=== PATIENT | female | born 1995 | race African-American/Black ===

== ENCOUNTER 2021-09-18 09:26 | Outpatient (REF) | payer MEDICAID, SELFPAY ==
[2021-09-18 10:14] LABS: Hematocrit 35.5 % (37.0-47.0); Hemoglobin 11.5 g/dl (12.0-16.0); Mean Corpuscular HGB Conc 32.4 g/dl (31.0-35.0); Mean Corpuscular Hemoglobin 27.8 pg (27.0-33.0); Mean Corpuscular Volume 85.7 fL (80.0-98.0); Platelet Count 332 X10*3/uL (160-400); Red Blood Count 4.14 X10*6/uL (4.20-5.50); Red Cell Distribution Width 14.1 % (11.0-16.0); White Blood Count 8.9 X10*3/uL (4.8-10.8)
[2021-09-18 10:29] LABS: Estimated Average Glucose 108 mg/dL; Hemoglobin A1C 103.8645 umol/L; Hemoglobin A1c % 5.4 %
[2021-09-18 11:03] LABS: Alanine Aminotransferase 15 U/L (0-31); Albumin Level 4.4 g/dL (3.5-5.0); Alkaline Phosphatase 52 U/L (39-117); Anion Gap 10 (12-20); Aspartate Amino Transferase 16 U/L (5-31); Bilirubin Total 1.1 mg/dL (0.0-1.0); Blood Urea Nitrogen 13 mg/dL (9-16); Calcium 9.5 mg/dL (8.4-10.2); Carbon Dioxide 26 mmol/L (22-29); Chloride 107 mmol/L (96-108); Cholesterol 151 mg/dL; Estimated Glomerular Filt Rate > 60; Glucose Fasting 87 mg/dL (60-99); HDL Cholesterol 47 mg/dL; LDL Cholesterol Calculated 84 mg/dl; Potassium 3.9 mmol/L (3.3-5.1); Sodium 139 mmol/L (135-145); Total Protein 7.1 g/dL (6.5-8.0); Triglycerides 100 mg/dL
[2021-09-18 11:09] LABS: TSH reflex Free T4 1.08 uIU/mL (0.32-4.0)
== END 2021-09-18 09:27 | disposition home or self-care (01) ==
LOC: HO.LAB 09:26
PROVIDERS: PCP Physician Assistant; Visit Provider Physician Assistant
DX: Z13.220 Encounter for screening for lipoid disorders (principal); Z13.1 Encounter for screening for diabetes mellitus; E66.09 Other obesity due to excess calories; Z68.32 Body mass index [BMI] 32.0-32.9, adult
CPT/HCPCS: 36415; 80053; 80061; 83036; 84443; 85027

== ENCOUNTER 2021-11-20 12:42 | Outpatient (REF) | payer OTHER, SELFPAY ==
[2021-11-20 13:00] LABS: MANUAL DIFF FLAG NO
[2021-11-20 13:42] LABS: Basophils Percent Auto 0.3 % (0-2); Eosinophils Absolute Auto 0.1 X10*3/uL (0.0-0.4); Hematocrit 35.9 % (37.0-47.0); Hemoglobin 11.8 g/dl (12.0-16.0); Imm Gran Abs Auto 0.02 X10*3/uL (0.00-0.03); Imm Gran Pct Auto 0.3 % (0.0-0.4); Lymphocytes Absolute Auto 2.6 X10*3/uL (1.2-4.9); Lymphocytes Percent Auto 33.7 % (20-40); Mean Corpuscular HGB Conc 32.9 g/dl (31.0-35.0); Mean Corpuscular Hemoglobin 27.6 pg (27.0-33.0); Mean Corpuscular Volume 84.1 fL (80.0-98.0); Monocytes Absolute Auto 0.6 X10*3/uL (0.1-1.2); Monocytes Percent Auto 7.3 % (2-11); Neutrophils Absolute Auto 4.4 x10*3/uL (2.0-8.3); Neutrophils Percent Auto 57.4 % (45-73); Platelet Count 440 X10*3/uL (160-400); Red Blood Count 4.27 X10*6/uL (4.20-5.50); Red Cell Distribution Width 13.2 % (11.0-16.0); White Blood Count 7.6 X10*3/uL (4.8-10.8)
[2021-11-20 14:10] LABS: Iron 66 mcg/dL (30-160); Percent Iron Saturation 21 % (15-50); Total Iron Binding Capacity 321 mcg/dL (228-428); Unsaturated Iron Binding 255 ug/dL
[2021-11-20 14:38] LABS: Folate 8.9 ng/mL (> or = 4.0); Vitamin B12 414 pg/mL (200-900)
[2021-11-20 14:52] LABS: Ferritin 45 ng/mL (10-122)
[2021-11-25 14:16] LABS: Vitamin D 25-OH, D2 <4 ng/mL; Vitamin D 25-OH, D3 10 ng/mL; Vitamin D 25-OH, Total 10 ng/mL (30-100)
== END 2021-11-20 12:43 | disposition home or self-care (01) ==
LOC: HO.LAB 12:42
PROVIDERS: PCP Physician Assistant; Visit Provider Nurse Practitioner Acute Care
DX: D64.9 Anemia, unspecified (principal)
CPT/HCPCS: 36415; 82306; 82607; 82728; 82746; 83540; 85025

== ENCOUNTER 2021-12-03 09:01 | Outpatient (REF) | payer OTHER, SELFPAY ==
--- NOTE | ~2021-12-03 | CT_ITS ---
EXAMINATION: CT HEAD WITHOUT CONTRAST CLINICAL INFORMATION: Headache COMPARISON: Previous head CT June 2012 TECHNIQUE: Contiguous axial imaging was performed from the skull base to vertex without intravenous administration of contrast. This CT examination was performed using dose optimization techniques as appropriate, variously including the following: *Automated exposure control *Adjustment of mA and/or kV according to patient size (this includes techniques or standardized protocols for targeted exams where dose is matched to indication/reason for exam; i.e. extremities or head) *Use of iterative reconstruction technique DLP: 721 mGy-cm FINDINGS: There is no evidence of acute intracranial hemorrhage or territorial infarction. No abnormal mass effect or midline shift is seen. Sheldon to white matter differentiation is well preserved. No extra-axial fluid collections are identified. The ventricles are normal in size. There is no abnormal attenuation within the brain parenchyma. The osseous structures and soft tissues are normal. The mastoid air cells and visualized portions of the paranasal sinuses are well aerated. CT/CT head/brain wo con IMPRESSION: Unremarkable exam.
== END 2021-12-03 09:02 | disposition home or self-care (01) ==
LOC: HO.CT 09:01
PROVIDERS: Visit Provider Nurse Practitioner Acute Care
DX: R51.9 Headache, unspecified (principal); U09.9 Post COVID-19 condition, unspecified; G89.29 Other chronic pain
CPT/HCPCS: 70450

== ENCOUNTER 2021-12-31 12:54 | Outpatient (REF) | payer OTHER, SELFPAY ==
--- NOTE | 2021-12-31 12:58 | EEG_ITS ---
The waking background activity consists of 8-9 hertz posterior alpha frequency, intermixed anteriorly with low-voltage fast frequencies. Drowsiness is characterized with diffuse theta slowing. During sleep symmetrical frontal central sleep spindles, vertex sharp transients, and K complexes are noted with bifrontal delta in stage III and IV sleep. Arousals are unremarkable. The patient reports no symptoms. No focal, lateralizing, or paroxysmal discharges seen. IMPRESSION: This 24-hour ambulatory EEG is within normal limits. MD GUME Miranda/DAHIANA / [id number]
== END 2021-12-31 12:55 | disposition home or self-care (01) ==
LOC: HO.NEURO 12:54
PROVIDERS: Visit Provider Physician Assistant
DX: R55 Syncope and collapse (principal)
CPT/HCPCS: 95708; 95957

== ENCOUNTER 2022-01-07 16:49 | Outpatient (REF) | payer OTHER, SELFPAY ==
--- NOTE | ~2022-01-07 | XR_ITS ---
EXAMINATION: XR CHEST CLINICAL INFORMATION: Chest pain COMPARISON: Chest 01/29/2016 TECHNIQUE: 2 views of the chest were obtained. FINDINGS: No significant abnormality is noted involving the heart, lungs, mediastinum, bony thorax or soft tissues. XR/XR chest 2V IMPRESSION: Unremarkable chest examination. No change from 01/29/2016
== END 2022-01-07 16:50 | disposition home or self-care (01) ==
LOC: HO.XRAY 16:49
PROVIDERS: PCP Physician Assistant; Visit Provider Nurse Practitioner Family
DX: R07.9 Chest pain, unspecified (principal); S82.91XA Unspecified fracture of right lower leg, initial encounter for closed fracture
CPT/HCPCS: 71046

== ENCOUNTER 2022-09-24 10:30 | Outpatient (REF) | payer OTHER, SELFPAY ==
[2022-09-24 13:40] LABS: Influenza A PCR NEGATIVE (Negative); Influenza B PCR NEGATIVE (Negative); Resp Syncy Virus RNA Qual PCR NEGATIVE (Negative); SARS COV2 PCR INHOUSE NEGATIVE (Negative)
== END 2022-09-24 10:31 | disposition home or self-care (01) ==
LOC: HO.LAB 10:30
PROVIDERS: Visit Provider Nurse Practitioner Family
DX: Z20.822 Contact with and (suspected) exposure to COVID-19 (principal); J02.9 Acute pharyngitis, unspecified
CPT/HCPCS: 0241U; 87070

== ENCOUNTER 2023-04-02 15:45 | Outpatient (REF) | payer OTHER, SELFPAY | END 2023-04-02 15:46 | disposition home or self-care (01) | LOC: HO.LAB 15:45 | PROVIDERS: Visit Provider Nurse Practitioner Family | DX: R30.0 Dysuria (principal) | CPT/HCPCS: 87086 ==

== ENCOUNTER 2023-04-28 08:18 | Outpatient (REF) | payer OTHER, SELFPAY ==
--- NOTE | ~2023-04-28 | US_ITS ---
EXAMINATION: US ABDOMEN LIMITED CLINICAL INFORMATION: Right upper quadrant abdominal tenderness. COMPARISON: Ultrasound retroperitoneal limited (renal only) 12/31/2022. TECHNIQUE: Real-time imaging of the right upper quadrant abdominal viscera. FINDINGS: PANCREAS: Normal. LIVER: The liver is normal in size. The liver contour is normal. Increased hepatic echogenicity which can be seen in the setting of hepatic steatosis or underlying liver disease. No focal hepatic lesion. There is no intrahepatic biliary duct dilatation seen. GALLBLADDER: Surgically absent. COMMON BILE DUCT: Normal in caliber measuring 0.5 cm in diameter. RIGHT KIDNEY: Normal. No hydronephrosis. No renal calculi or focal parenchymal lesions. The kidney measures 10.3 cm in maximum dimension. FREE FLUID: None. US/US abdomen limited IMPRESSION: 1. Increased hepatic echogenicity which can be seen in the setting of hepatic steatosis or underlying liver disease. 2. Status post cholecystectomy. No intra or extrahepatic biliary duct dilatation.
== END 2023-04-28 08:19 | disposition home or self-care (01) ==
LOC: HO.US 08:18
PROVIDERS: Visit Provider Nurse Practitioner Family
DX: R10.811 Right upper quadrant abdominal tenderness (principal)
CPT/HCPCS: 76705

== ENCOUNTER 2023-06-26 15:56 | Outpatient (AMB) | payer OTHER, SELFPAY ==
[2023-06-26 16:09] VITALS: BP 117/75; PULSE 85; BMI 30.5
--- NOTE | 2023-06-26 16:09 | MHC.OFFVIS ---
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 Patient has been reporting postprandial abdominal bloating and nausea. Patient reports that she has occasional postprandial loose stools then still feeling like she does not empty her bowels completely. Patient denies melena, hematochezia, unintentional weight loss or ribbon like stools. Patient reports acid reflux with occasional dyspepsia, without dysphagia or odynophagia. Patient was started on omeprazole by PCP, however she reports that she has not taking it for a long time. Okay to do breath test for H pylori in the office today. 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 Cognitive needs: No Hearing needs: No Vision needs: No Review of Systems Const Denies weight gain and Denies weight loss ENT Reports no additional complaints, Denies dysphagia and Denies odynophagia Card Reports no additional complaints Resp Reports no additional complaints GI Reports abdominal pain (RUQ), Denies belching, Denies melena, Reports bloating, Denies change in bowel habits, Denies dysphagia, Denies excessive flatus, Denies dyspepsia, Reports heartburn, Denies diarrhea, Denies loose stools, Reports nausea, Denies odynophagia and Denies vomiting Reports no additional complaints Musc Reports no additional complaints Neuro Reports no additional complaints Psych Reports no additional complaints Endo Reports no additional complaints Physical Exam Vital Signs: Last Vital Signs Pulse 85 06/26/23 16:09 BP 117/75 06/26/23 16:09 BMI result Body Mass Index 30.5 Const General: healthy appearing, no acute distress and well developed Nutritional Appearance: obese Orientation/consciousness: patient oriented x3 HEENT Head: Yes normal to inspection, Yes normocephalic and Yes atraumatic Face and sinus: Yes normal facial exam Mouth: Normal oral and palatal mucosa present Throat: Yes posterior oropharynx normal, Yes tonsils normal and Yes uvula midline Eyes General: appearance normal, both eyes and all related structures Neck Neck: Yes normal visual inspection, Yes full ROM and Yes trachea midline Thyroid: Thyroid normal Resp Effort & Inspection: normal respiratory effort, able to speak in complete sentences, no tracheal deviation and symmetric chest movement Auscultation: clear to auscultation bilaterally Cardio Rate: regular rate Heart sounds: S1 normal heart sound present and S2 normal heart sound present GI Inspection: Yes normal to inspection, No distended and Yes obesity Palpation (GI): Soft to palpation, not firm, nontender and No hepatosplenomegaly present Auscultation: normal bowel sounds General: Yes no CVA tenderness Back/Spine/Pelvis Back: no CVA tenderness Skin General skin exam: elasticity normal, turgor normal and dry skin Neuro General: patient oriented x3 Psych Appearance: grossly normal Mental Status: mental status grossly normal Results Reviewed Results Reviewed: ABDOMINAL ULTRASOUND 04/28/2023 IMPRESSION: 1. Increased hepatic echogenicity which can be seen in the setting of hepatic steatosis or underlying liver disease. 2. Status post cholecystectomy. No intra or extrahepatic biliary duct dilatation. Assessment & Plan Assessment & Plan (1) GERD (gastroesophageal reflux disease): Code(s): K21.9 - Gastro-esophageal reflux disease without esophagitis Qualifiers: Esophagitis presence: esophagitis presence not specified Qualified Code(s): K21.9 - Gastro-esophageal reflux disease without esophagitis Plan: Patient with start taking omeprazole every morning half an hour before breakfast. Patient will continue avoiding dietary triggers and late night snacking. Will check for H pylori, transglutaminase to rule out celiac, lipase, liver profile. (2) RUQ abdominal tenderness: Code(s): R10.811 - Right upper quadrant abdominal tenderness Qualifiers: Presence of rebound: absent Qualified Code(s): R10.811 - Right upper quadrant abdominal tenderness Plan: Negative Segura sign. Will send patient for liver enzymes. Will hold off on getting another ultrasound. Ultrasound just done recently and showed no acute processes. (3) IBS (irritable bowel syndrome): Code(s): K58.9 - Irritable bowel syndrome without diarrhea Qualifiers: Irritable bowel syndrome type: without diarrhea Qualified Code(s): K58.9 - Irritable bowel syndrome without diarrhea Plan: Discussed with patient will FODMAP diet. List of food recommended as well as list of food to avoid given to patient. Patient will return in 3 months, sooner on as needed basis. Patient is agreeable to this plan and verbalizes understanding of instructions. She was given the opportunity to ask questions and all questions answered. Thank you for allowing me to participate in her care Orders: Orders Transglutaminase IgA 06/26/23 R10.9 - Unspecified abdominal pain Transglutaminase Ab IgG 06/26/23 R10.9 - Unspecified abdominal pain TSH reflex Free T4 06/26/23 K59.00 - Constipation, unspecified Lipase 06/26/23 R10.9 - Unspecified abdominal pain Liver Panel 06/26/23 R10.9 - Unspecified abdominal pain H Pylori Breath Test 06/26/23 Pancreatic Elastase-1 06/26/23 R10.9 - Unspecified abdominal pain Vitamin D 25-OH (D2 and D3) 06/26/23 E55.9 - Vitamin D deficiency, unspecified Vitamin B12 and Folate 06/26/23 R19.7 - Diarrhea, unspecified Medications: New methylcellulose (laxative) (Citrucel) take it with full glass of water 500 mg PO DAILY 30 tabs 2RF K59.00 - Constipation, unspecified sennosides (Natural Senna Laxative) 17.2 mg (2 x 8.6 mg) PO BEDTIME 60 tabs 3RF constipation K59.00 - Constipation, unspecified Refilled omeprazole 20 mg PO DAILY 60 caps 1RF K21.9 - Gastro-esophageal reflux disease without esophagitis Coding Level of Care Code New Pt Level 4 (58998) Diagnoses Gastroesophageal reflux disease, unspecified whether esophagitis present K21.9 Esophagitis presence: esophagitis presence not specified Right upper quadrant abdominal tenderness without rebound tenderness R10.811 Presence of rebound: absent Irritable bowel syndrome without diarrhea K58.9 Irritable bowel syndrome type: without diarrhea Time Spent (min) 45 Comment 30 minutes spent with patient and additional 15 minutes spent reviewing her records
== END 2023-06-26 16:16 ==
PROVIDERS: PCP Physician Assistant; Visit Provider Nurse Practitioner Family
DX: K21.9 Gastro-esophageal reflux disease without esophagitis (principal); R10.811 Right upper quadrant abdominal tenderness; K58.9 Irritable bowel syndrome, unspecified
CPT/HCPCS: 99204

== ENCOUNTER → 2023-06-26 15:56 | Outpatient (BNVA) | payer OTHER, SELFPAY | PROVIDERS: PCP Physician Assistant; Visit Provider Nurse Practitioner Family ==

== ENCOUNTER 2023-06-26 17:13 | Outpatient (REF) | payer OTHER, SELFPAY ==
[2023-06-30 15:29] LABS: H Pylori Breath Test Negative (Negative)
== END 2023-06-26 17:14 | disposition home or self-care (01) ==
LOC: HO.LNP 17:13
PROVIDERS: Visit Provider Nurse Practitioner Family
DX: Z11.0 Encounter for screening for intestinal infectious diseases (principal)
CPT/HCPCS: 83013

== ENCOUNTER 2023-12-28 14:53 | Outpatient (AMB) | payer OTHER, SELFPAY ==
--- NOTE | 2023-12-28 14:55 | A.OFFPC_ITS ---
Vital Signs 12/28/23 14:57 Height 5 ft 4 in Weight 169 lb 6 oz BMI 29.1 BP 130/80 Blood Pressure Location Lt brachial Position Sitting Pulse 81 Pulse Source Pulse Oximeter Temp 98.6 F Temp Source Oral Pulse Oximetry (%) 97 Oxygen Delivery Method Room Air Intake Visit Reasons: PE Intake Note: Patient is here today for a physical. Complaint of cough since 12/25/23 and fever since 12/26/23, OTC not helping, stomach pain and headache. Covid test not done. Wild Life Manager Required: No Top Polisher: Not Required per policy Accompanied by: Self / Same As Patient Allergies amoxicillin Allergy (Unknown, Verified 12/28/23 15:07) Rash amitriptyline Adverse Reaction (Intermediate, Verified 12/28/23 15:07) Fatigued trazodone Adverse Reaction (Intermediate, Verified 12/28/23 15:07) Anxiety Medication List - Last Reconciled 12/28/23 by Edilberto Hurd PA-C albuterol sulfate 90 mcg/actuation 2 puffs inhalation Q6H PRN 30 days budesonide-formoterol 80-4.5 mcg/actuation (Symbicort) 2 puffs inhalation BID 30 days Tobacco use date assessed: 12/28/23 Dental Screening Dental Screen Date: 12/28/23 Did you have a dental visit in the last 12 months?: No Did you have a dental problem in the last 6 months where you did not have access to dental care?: No Was dental information given to patient?: Patient has dentist HPI PE HPI Details Patient is a 28-year-old female here today for annual physical. Patient has a past medical history significant for asthma. . Has been suffering with an upper respiratory illness over the last 3 days which has been causing her cough and intermittent fevers. 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 She does feel like her asthma is exacerbated due to the upper resp illness. Has been taking [id number] cough cold medications that are not helpful. .. Generalized anxiety disorder: Still suffers from anxiety and is willing to speak with a mental health therapist. At this time she has not interested in any medication for her anxiety. 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. Vaccines: Up-to-date with COVID vaccine, flu vaccine, pneumonia and tetanus vaccines [facility] Medical History Right hand paresthesia Nephrolithiasis Surgical History History of cholecystectomy Social History (Updated 12/28/23 @ 15:11 by Edilberto Hurd PA-C) Housing: Apartment Alcohol intake: current Alcohol intake frequency: holidays/special occasions only Patient Tobacco Use Status: Never used Tobacco Tobacco use type: Cigarette e-Cigarette/Vaping Use: Never Used Second Hand Smoke Exposure: No Substance Use Type: Marijuana service: No Current occupational status: employed Current occupation: [employer] Cognitive needs: No Hearing needs: No Vision needs: No Questionnaire PHQ-9 Over the last 2 weeks, how often have you been bothered by any of the following problems? 1. Little interest or pleasure in doing things: not at all 2. Feeling down, depressed, or hopeless: not at all 3. Trouble falling or staying asleep, or sleeping too much: not at all 4. Feeling tired or having little energy: not at all 6. Feeling bad about yourself - or that you are a failure or have let yourself or your family down: not at all 7. Trouble concentrating on things, such as reading the newspaper or watching television: not at all 8. Moving or speaking so slowly that other people could have noticed. Or the opposite - being so fidgety or restless that you have been moving around a lot more than usual: not at all 9. Thoughts that you would be better off or of hurting yourself in some way: not at all Depression Screening Interpretation: Negative Depression Screening Done: Yes 45890 - PHQ-9 Billing: Yes Source: Developed by Drs. Heri Armstrong, Delores Matamoros, Mauricio Keller and colleagues, with an educational christopher from [employer]. Thrive Questionnaire Date Thrive assessed: 12/28/23 I am a: Patient What is your living situation today?: I have a steady place to live Within the past 12 months, did the food you bought not last and you didn't have the money to get more?: Never true Within the past 12 months, did you worry whether your food would run out before you got money to buy more?: Never true Do you have trouble paying for medicines?: No Do you have trouble getting transportation to medical appointments?: No Do you have trouble paying your heating and electricity bill?: No Do you have trouble taking care of your child, family member or friend?: No Do you have trouble with day-to-day activities such as bathing, preparing meals, shopping, managing finances, etc.?: No Are you currently unemployed and looking for a job?: No Are you interested in more education?: No Currently or been in a relationship where the following occur: no concerns reported THRIVE Score: 0 AUDIT C Alcohol Use Questionnaire (AUDIT-C) 1. How often do you have a drink containing alcohol?: Monthly or less 2. How many drinks containing alcohol do you have on a typical day when you are drinking?: 1 or 2 Total Score: 1 RAZ-7 AMB Questionnaire RAZ-7 Date RAZ - 7 assessed: 12/28/23 Feeling nervous, anxious, or on edge: 3 = Nearly every day Not being able to stop or control worryin = Not at all Worrying too much about different things: 0 = Not at all Trouble relaxin = More than half the days Being so restless that it is hard to sit still: 1 = Several days Becoming easily annoyed or irritable: 1 = Several days Feeling afraid as if something awful might happen: 0 = Not at all Total RAZ-7 score (0-4 normal; 5-9 mild; 10-14 moderate; 15-21 severe): 7 Source: Developed by Drs. Heri Armstrong, Delores Matamoros, Mauricio Keller and colleagues, with an educational christopher from [employer]. RAZ-7 Assessment Billing RAZ-7 Assessment Tool: RAZ-7 Assessment 84405 ACT Questionnaire In the past 4 weeks, how much of the time did your asthma keep you from getting as much done at work, school or at home?: None of the time During the past 4 weeks, how often have you had shortness of breath?: Not at all During the past 4 weeks, how often did your asthma symptoms wake you up at night or earlier than usual in the morning?: Not at all During the past 4 weeks, how often have you had to use your rescue inhaler or nebulizer medication?: Not at all How would you rate your asthma control during the past 4 weeks?: Completely controlled ACT Interpretation: Negative Score: 25 Review of Systems Const Reports body aches, Denies chills, Denies excessive sweating, Reports fatigue, Reports fever(s) and Denies headache(s) Eyes Denies blurry vision ENT Denies dysphagia, Denies vertigo, Denies dizziness, Denies headache(s), Denies hearing loss and Denies tinnitus Card Denies chest pain, Denies chest pain with activity, Denies syncope, Denies irregular heart rhythm and Denies dyspnea Resp Denies chest congestion, Reports cough, Denies hemoptysis, Denies dyspnea and Denies wheezing GI Denies abdominal pain, Denies melena, Denies hematochezia, Denies coffee ground emesis, Denies dysphagia, Denies diarrhea, Denies nausea and Denies vomiting Denies urinary frequency, Denies dysuria, Denies urinary hesitancy and Denies urinary urgency Musc Denies arthralgias, Denies limited range of motion, Denies muscle cramps and Denies muscle weakness Skin/Breast Denies rash and Denies skin ulcer Neuro Denies Abnormal speech present, Denies confusion, Denies vertigo, Denies dizziness, Denies syncope, Denies headache(s), Denies memory loss and Denies seizure-like activity Psych Denies anxiety, Denies confusion, Denies depression, Denies memory loss, Denies panic attacks and Denies paranoia Endo Denies excessive sweating, Reports fatigue, Denies flushing, Denies polydipsia and Denies polyuria Aller/Immun Denies wheezing Physical exam (Primary Care) Vital Signs: Last Vital Signs Temp 98.6 F 12/28/23 14:57 Pulse 81 12/28/23 14:57 BP 130/80 12/28/23 14:57 Pulse Ox 97 12/28/23 14:57 Oxygen Delivery Method Room Air 12/28/23 14:57 BMI result Body Mass Index 29.1 Tobacco/Smoking Status: Tobacco use Status Tobacco use date assessed 12/28/23 12/28/23 15:05 Patient Tobacco Use Status Never used Tobacco 12/28/23 15:11 Tobacco use type Cigarette 12/28/23 15:11 e-Cigarette/Vaping Use Never Used 12/28/23 15:11 Depression Screening Interpretation: Negative Thrive Assessment: Date of Thrive Assessment Date Thrive assessed 12/28/23 12/28/23 15:05 Currently or been in a relationship where the following occur: no concerns reported Const General: cooperative, comfortable, no acute distress, alert and awake; No confusion Orientation/consciousness: oriented to person, oriented to place, patient oriented x3 and No confusion HENMT Head: Yes normocephalic Ears: external ears normal and TM's normal bilaterally Face and sinus: No sinus tenderness Mouth: Normal oral and palatal mucosa present and tongue normal Teeth and gingiva: dentition normal and gingiva normal Throat: Yes posterior oropharynx normal, Yes tonsils normal and Yes uvula midline Eyes Conjunctivae: conjunctivae normal Sclerae: sclerae normal Pupils: Equal, round and reactive pupils present EOM: EOMs intact bilaterally Direct Ophthalmoscopy: No no photophobia Neck Neck: Yes no lymphadenopathy, No tender and Yes no JVD Thyroid: Thyroid normal Carotids: no bruits Chest Chest palpation & inspection: no tenderness Resp Other: OCCASIONAL COUGH DURING EXAM Effort & Inspection: normal respiratory effort, no audible wheezes, Actively coughing, not labored and no stridor Auscultation: no crackles, no rales, rhonchi and no wheezes Cardio Jugular venous distension: no JVD Rate: regular rate, not bradycardic and not tachycardic Rhythm: regular rhythm Bruits: no carotid bruits Peripheral pulses: Peripheral pulses 2+ throughout GI Inspection: Yes normal to inspection, No abdominal wall ecchymosis and No visible herniation Palpation (GI): Soft to palpation, nontender, no guarding, not rigid and No hepatosplenomegaly present Auscultation: normoactive bowel sounds General: Yes no CVA tenderness Back/Spine/Pelvis Back: no CVA tenderness and No back tenderness Cervical Spine: cervical ROM normal Thoracic/Lumbar Spine: thoracic and lumbar spine normal to inspection, straight leg raise negative bilaterally, No thoraco-lumbar ROM limited and No lumbar spinal tenderness Skin Lesions: no lesions Rashes: no rashes Wounds: no wounds Neuro General: oriented to person, oriented to place, patient oriented x3, CN's II-XI intact bilaterally and No confusion Cranial nerves: Yes Equal, round and reactive pupils present and Yes Normal accommodation reflex present Cognition (Neuro): normal cognition Speech: No Abnormal speech present Gait exam (Neuro): Normal gait present Motor exam (neuro): 5/5 motor strength present throughout Extrem Right upper extremity: full ROM; no cyanosis Left upper extremity: full ROM; no cyanosis Right lower extremity: no edema Left lower extremity: no edema Psych Appearance: grossly normal Mental Status: mental status grossly normal Affect: normal affect Attitude: cooperative Thought process: Normal thought process present Assessment and Plan Assessment & Plan (1) Annual physical exam: Code(s): Z00.00 - Encounter for general adult medical examination without abnormal findings (2) MDD (major depressive disorder), recurrent episode, moderate: Code(s): F33.1 - Major depressive disorder, recurrent, moderate Plan: Has resolved, PHQ-9 score 0. Not on a medication at this time. She is willing to see a mental therapist for her anxiety. (3) Asthma: Code(s): J45.909 - Unspecified asthma, uncomplicated Qualifiers: Asthma complication type: uncomplicated Asthma persistence: unspecified Asthma severity: moderate Qualified Code(s): J45.909 - Unspecified asthma, uncomplicated Plan: Currently patient's asthma is exacerbated due to upper respiratory illness. Otherwise her asthma is fairly well controlled without any exacerbations recently. (4) RAZ (generalized anxiety disorder): Comment: Moderate RAZ Code(s): F41.1 - Generalized anxiety disorder Plan: Patient's RAZ-7 score positive for anxiety which has been existing condition for her. She has not interested in mental health medications though she is now interested in being referred to mental health therapy. (5) Pyelonephritis: Code(s): N12 - Tubulo-interstitial nephritis, not specified as acute or chronic Plan: Reports being admitted to the hospital a few months ago for acute UTI evolved in to pyelonephritis. She needs a urology follow-up (6) URI (upper respiratory infection): Code(s): J06.9 - Acute upper respiratory infection, unspecified Qualifiers: URI type: unspecified viral URI Qualified Code(s): J06.9 - Acute upper respiratory infection, unspecified Plan: Patient has had a 48 hour history of acute and intermittent fever. Denies any also contacts. 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 Will test for flu RSV and COVID. (7) Screening for diabetes mellitus (DM): Code(s): Z13.1 - Encounter for screening for diabetes mellitus Orders: Orders Vitamin D 25-OH Total 12/28/23 E55.9 - Vitamin D deficiency, unspecified SARS-CoV2/FLU/RSV 12/28/23 J06.9 - Acute upper respiratory infection, unspecified Comprehensive [place]. Panel Fast 12/28/23 Z13.1 - Encounter for screening for diabetes mellitus Complete Blood Count no Diff 12/28/23 K21.9 - Gastro-esophageal reflux disease without esophagitis Referrals Counseling Referral F41.1 - Generalized anxiety disorder Urology Referral J06.9 - Acute upper respiratory infection, unspecified, N12 - Tubulo-interstitial nephritis, not specified as acute or chronic, N20.0 - Calculus of kidney Medications: New prednisone Take 3 tablets x2 days, 2 tablets x2 days, 1 tablet x2 days 10 mg PO DIRECTED 6 days 12 tabs 0RF J45.909 - Unspecified asthma, uncomplicated oseltamivir (Tamiflu) 75 mg PO BID 10 caps 0RF 5 days J10.1 - Influenza due to other identified influenza virus with other respiratory manifestations Refilled albuterol sulfate 90 mcg/actuation 2 puffs inhalation Q6H 30 days PRN 8.5 grams 6RF shortness of breath or wheezing J45.909 - Unspecified asthma, uncomplicated budesonide-formoterol 80-4.5 mcg/actuation (Symbicort) 2 puffs inhalation BID 30 days 10.2 grams 6RF J45.909 - Unspecified asthma, uncomplicated Coding Level of Care Code Est Pt Prev Care [id number]([id number]) Diagnoses Annual physical exam Z00.00 MDD (major depressive disorder), recurrent episode, moderate F33.1 Moderate asthma without complication, unspecified whether persistent J45.909 Asthma complication type: uncomplicated Asthma persistence: unspecified Asthma severity: moderate RAZ (generalized anxiety disorder) F41.1 Pyelonephritis N12 Viral upper respiratory tract infection J06.9 URI type: unspecified viral URI Screening for diabetes mellitus (DM) Z13.1 Additional Codes RAZ-7 Assessment Billing - RAZ-7 Assessment Tool: RAZ-7 Assessment [id number] ([id number])
[2023-12-28 14:57] VITALS: BP 130/80; PULSE 81; TEMP 37; O2SAT 97; BMI 29.1
== END 2023-12-28 16:03 | disposition home or self-care (01) ==
PROVIDERS: PCP Physician Assistant; Visit Provider Physician Assistant
DX: Z00.00 Encounter for general adult medical examination without abnormal findings (principal); F33.1 Major depressive disorder, recurrent, moderate; J45.909 Unspecified asthma, uncomplicated; F41.1 Generalized anxiety disorder; N12 Tubulo-interstitial nephritis, not specified as acute or chronic; J06.9 Acute upper respiratory infection, unspecified; Z13.1 Encounter for screening for diabetes mellitus
CPT/HCPCS: 99395

== ENCOUNTER 2023-12-28 15:38 | Outpatient (REF) | payer OTHER, SELFPAY ==
[2023-12-28 16:51] LABS: Influenza A PCR POSITIVE (Negative); Influenza B PCR NEGATIVE (Negative); Resp Syncy Virus RNA Qual PCR NEGATIVE (Negative); SARS COV2 PCR INHOUSE NEGATIVE (Negative)
== END 2023-12-28 15:39 | disposition home or self-care (01) ==
LOC: HO.LNP 15:38
PROVIDERS: Visit Provider Physician Assistant
DX: J06.9 Acute upper respiratory infection, unspecified (principal)
CPT/HCPCS: 0241U

== ENCOUNTER 2024-02-06 16:16 | Inpatient (IN) | payer OTHER, SELFPAY ==
--- NOTE | ~2024-02-06 | CT_ITS ---
EXAMINATION: CT ABDOMEN AND PELVIS WITH CONTRAST CLINICAL INFORMATION: Abdominal pain COMPARISON: Previous abdominal ultrasound March 2023 TECHNIQUE: Multidetector volumetric images were obtained from the superior aspect of the liver through the pubic symphysis following administration 85 mL of Omnipaque 350 intravenous contrast. Sagittal and coronal reformatted images were obtained on the technologist's workstation. Oral contrast: Yes This CT examination was performed using dose optimization techniques as appropriate, variously including the following: *Automated exposure control *Adjustment of mA and/or kV according to patient size (this includes techniques or standardized protocols for targeted exams where dose is matched to indication/reason for exam; i.e. extremities or head) *Use of iterative reconstruction technique DLP: 512 mGy-cm FINDINGS: LUNG BASES: The visualized lung bases are unremarkable. LIVER, GALLBLADDER, AND BILIARY TREE: The liver is normal in size, shape, and attenuation. No focal hepatic lesion or biliary ductal dilatation is present. The gallbladder has been removed. PANCREAS: Unremarkable. SPLEEN: Unremarkable. ADRENAL GLANDS: Unremarkable. KIDNEYS AND URETERS: The kidneys are normal in size, shape, and attenuation. No hydronephrosis, hydroureter, or calculi seen. No perinephric stranding. BLADDER: Unremarkable. GASTROINTESTINAL TRACT: Wall thickening and edema of the colon suggestive of colitis. No evidence of obstruction. Normal small bowel. The appendix is unremarkable. No ascites. ABDOMINAL WALL: No significant hernia is appreciated. LYMPH NODES: Normal. VASCULAR: Unremarkable. PELVIC VISCERA: Unremarkable. OSSEOUS STRUCTURES: Unremarkable. CT/CT abdomen pelvis w IV con IMPRESSION: Colitis. Fleischner guidelines were followed.
[2024-02-06 16:27] VITALS: BP 141/68; BP 142/92; PULSE 52; PULSE 57; RESP 18; TEMP 36.6; O2SAT 100; O2SAT 99; BMI 27.5
[2024-02-06 16:42] LABS: MANUAL DIFF FLAG NO
[2024-02-06 16:44] LABS: Basophils Percent Auto 0.2 % (0-2); Eosinophils Percent Auto 0.1 % (0-4); Hematocrit 39.2 % (37.0-47.0); Hemoglobin 13.2 g/dl (12.0-16.0); Imm Gran Abs Auto 0.08 X10*3/uL (0.00-0.03); Imm Gran Pct Auto 0.4 % (0.0-0.4); Lymphocytes Absolute Auto 2.3 X10*3/uL (1.2-4.9); Mean Corpuscular HGB Conc 33.7 g/dl (31.0-35.0); Mean Corpuscular Volume 83.1 fL (80.0-98.0); Mean Platelet Volume 8.8 fL (9.4-12.3); Monocytes Absolute Auto 0.6 X10*3/uL (0.1-1.2); Monocytes Percent Auto 2.9 % (2-11); Neutrophils Absolute Auto 16.4 x10*3/uL (2.0-8.3); Neutrophils Percent Auto 84.4 % (45-73); Platelet Count 440 X10*3/uL (160-400); Red Blood Count 4.72 X10*6/uL (4.20-5.50); Red Cell Distribution Width 13.8 % (11.0-16.0); White Blood Count 19.5 X10*3/uL (4.8-10.8)
[2024-02-06] MEDS: ondansetron HCL 4 MG/2 ML VIAL IVPUSH (16:44)
[2024-02-06] MEDS: 0.9 % Sodium Chloride 1,000 ML 999 ML IV ×2 (16:44→20:01)
[2024-02-06 16:49] VITALS: BP 124/59; PULSE 46; RESP 16; TEMP 36.9
[2024-02-06 16:58] LABS: Alanine Aminotransferase 15 U/L (0-31); Alkaline Phosphatase 55 U/L (39-117); Anion Gap 19 (12-20); Aspartate Amino Transferase 18 U/L (5-31); Bilirubin Total 0.8 mg/dL (0.0-1.0); Blood Urea Nitrogen 14 mg/dL (9-16); Calcium 10.1 mg/dL (8.4-10.2); Carbon Dioxide 20 mmol/L (22-29); Chloride 110 mmol/L (96-108); Creatinine Clr Calc Pharmacy 113.1; Estimated Glomerular Filt Rate > 60; Ethanol 28 mg/dL; Glucose Random 116 mg/dL (60-115); Potassium 3.6 mmol/L (3.3-5.1); Sodium 145 mmol/L (135-145); Total Protein 8.4 g/dL (6.5-8.0)
[2024-02-06 17:09] VITALS: PULSE 82
[2024-02-06 17:13] LABS: Acetaminophen LAB < 3 mcg/mL (<30); Salicylate < 5.0 mg/dL (15-30)
[2024-02-06 17:36] LABS: Lipase 13 U/L (8-78)
[2024-02-06 17:56] LABS: HCG Quantitative < 2 mIU/mL
--- NOTE | 2024-02-06 18:08 | ED.GENADULT ---
HPI - General Adult General Chief complaint: ETOH/Substance Use Stated complaint: vomiting, diarrhea, poss alc poisoning, poss dehyd Time Seen by Provider: 02/06/24 18:07 Source: patient and RN notes reviewed Mode of arrival: ambulatory Limitations: no limitations History of Present Illness HPI narrative: This is a [id number]-female, with no known medical problems, who presents to the emergency department with complaints of nausea, vomiting since last night. Patient states that last night she drank a lot of hard alcohol. She is unable to approximate how much alcohol she had drank. She states that she has been vomiting the entire day. She also endorses that she smoked marijuana. Denies any other drug use. Denies any sick contacts. She has been unable to eat or drink secondary to the nausea and vomiting. No fevers, chills, chest pain, shortness of breath, urinary symptoms, diarrhea constipation. No other complaints or concerns at this time. MD complaint: Nausea, vomiting Onset (ago): hour(s) Radiation: non-radiation Quality: aching Pain Consistency: constant Relieving factors: none Exacerbating factors: none Associated symptoms: nausea/vomiting Treatments prior to arrival: none Related Data Previous Rx's ?Medication ?Instructions ?Recorded albuterol sulfate 90 mcg/actuation 2 puff inhalation Q6H PRN 12/28/23 aerosol inhaler shortness of breath or wheezing 30 days #8.5 grams budesonide-formoterol HFA 80 2 puff inhalation BID 30 days 12/28/23 mcg-4.5 mcg/actuation aerosol #10.2 grams inhaler (Symbicort) prednisone 10 mg tablet 10 mg PO DIRECTED 6 days #12 12/28/23 tabs oseltamivir 75 mg capsule (Tamiflu) 75 mg PO BID 5 days #10 caps 12/29/23 Allergies Allergy/AdvReac Type Severity Reaction Status Date / Time amoxicillin Allergy Unknown Rash Verified 02/06/24 16:29 amitriptyline AdvReac Intermediate Fatigued Verified 02/06/24 16:29 trazodone AdvReac Intermediate Anxiety Verified 02/06/24 16:29 Review of Systems Review of Systems: Yes all other systems are reviewed and are negative Constitutional: Constitutional: Reports as per [facility] Past Medical History Attestation statement: The following information was validated with the patient. Medical History Right hand paresthesia Nephrolithiasis Surgical History History of cholecystectomy Social History Social History Housing: Apartment Alcohol intake: current Alcohol intake frequency: holidays/special occasions only Alcohol type: hard liquor Patient Tobacco Use Status: Never used Tobacco Tobacco use type: Cigarette e-Cigarette/Vaping Use: Never Used Second Hand Smoke Exposure: No Use of substances other than those prescribed or required for medical reasons: Yes Substance Use Type: Marijuana Advance Directives: No Advance Directives Information Provided: No service: No Current occupational status: employed Current occupation: [employer] Cognitive needs: No Hearing needs: No Vision needs: No Physical Exam ED Vital Signs: Vital Signs - 24 hr 02/06/24 16:27 02/06/24 16:49 02/06/24 19:44 Temperature 98 F 98.5 F 97.9 F Pulse Rate 57 46 L 62 Respiratory Rate 18 16 16 Blood Pressure 141/68 H 124/59 L 131/71 Pulse Oximetry 100 97 Oxygen Delivery Method Room Air Room Air Room Air 02/06/24 22:21 02/07/24 00:00 02/07/24 02:04 Temperature 98.6 F 98.7 F 98.4 F Pulse Rate 72 66 61 Respiratory Rate 16 16 16 Blood Pressure 107/69 105/52 L 140/78 H Pulse Oximetry 97 97 97 Oxygen Delivery Method Room Air Room Air Room Air BMI result Body Mass Index 27.5 Const General: cooperative, comfortable and no acute distress Orientation/consciousness: patient oriented x3 Limitations: no limitations [facility] Head: Yes normal to inspection, Yes normocephalic and Yes atraumatic Ears: hearing grossly normal bilaterally General nose exam: Normal external nose present Face and sinus: Yes normal facial exam Mouth: Normal oral and palatal mucosa present, oropharynx normal and moist mucous membranes Throat: Yes posterior oropharynx normal Eyes General: appearance normal, both eyes and all related structures Eyelids: Yes eyelids normal Conjunctivae: conjunctivae normal Sclerae: sclerae normal Pupils: Equal, round and reactive pupils present EOM: EOMs intact bilaterally Neck Neck: Yes normal visual inspection, Yes full ROM and Yes no lymphadenopathy Lymphatic: no lymphadenopathy noted Chest Chest palpation & inspection: normal inspection of the chest Resp Effort & Inspection: normal respiratory effort and able to speak in complete sentences Auscultation: clear to auscultation bilaterally, no crackles, no rales, no rhonchi and no wheezes Cardio Rate: regular rate Rhythm: regular rhythm Heart sounds: S1 normal heart sound present and S2 normal heart sound present GI Other: Diffuse tenderness palpation throughout entire abdomen, without any specific point tenderness. Abdomen is soft. No rebound or guarding Inspection: Yes normal to inspection Skin General skin exam: no rashes or lesions noted Trauma: no lacerations or abrasions Wounds: no wounds Neuro General: patient oriented x3 and moves all extremities Cranial nerves: Yes Equal, round and reactive pupils present Extrem General: Yes normal to inspection Right upper extremity: normal to inspection Left upper extremity: normal to inspection Right lower extremity: normal to inspection Left lower extremity: normal to inspection Course Reevaluation(s) Reevaluation #1: CT abdomen revealing evidence of colitis, patient does have leukocytosis at 19.5, likely reactive secondary to excessive vomiting. Urine appears to be infected. U tox revealing positive marijuana, otherwise unremarkable. Discussed findings with patient. Will treat with prednisone course as well as GI follow-up. P.o. challenge was performed, however return of nausea and abdominal pain occurred. She is now shivering. Given intractable nausea and recurrent pain, discussed with attending, recommends hospitalization at this time for management. Patient is in agreement. Transfer of care initiated. Time: 00:08 Medications Administered Discontinued Medications Generic Name Dose Route Start Last Admin Trade Name Freq PRN Reason Stop Dose Admin Diphenhydramine HCl 25 mg 02/06/24 18:20 02/06/24 18:30 Diphenhydramine Hcl 50 Mg/Ml Vial IVPUSH 02/06/24 18:21 25 mg ONCE ONE Administration Sodium Chloride 1,000 mls @ 999 mls/hr 02/06/24 16:45 02/06/24 17:50 Ns IV 02/06/24 17:[address] Infusion Sodium Chloride 1,000 mls @ 999 mls/hr 02/06/24 19:29 02/06/24 21:39 Ns IV 02/06/24 20:29 Infused .Q1H1M ONE Infusion Iohexol 85 ml 02/06/24 20:23 02/06/24 20:24 Iohexol 350 Mg/Ml 100 Ml Infus..Btl IV 02/06/24 20:24 85 ml ONCE ONE Administration Ondansetron HCl 4 mg 02/06/24 16:40 02/06/24 16:44 Ondansetron Hcl 4 Mg/2 Ml Vial IVPUSH 02/06/24 16:41 4 mg ONCE ONE Administration Prochlorperazine Edisylate 10 mg 02/06/24 18:20 02/06/24 18:30 Prochlorperazine Edisylate 10 Mg/2 Ml Vial IVPUSH 02/06/24 18:21 10 mg ONCE ONE Administration Medical Decision Making Medical Decision Making [facility] Narrative: This is a 28-year-old female, with no known medical problems, who presents emergency department with complaints of nausea and vomiting after drinking excess alcohol the night prior. On arrival, patient mildly hypertensive at 141/68, she is afebrile, nontoxic-appearing. Differential diagnoses include electrolyte derangement, diverticulitis, diverticulosis, gastroenteritis, viral syndrome. Less likely appendicitis, cholecystitis, cholelithiasis. Abdomen is diffusely tender without any point tenderness. Lungs are clear to auscultation bilaterally. She is alert and oriented x4. Plan: Labs, UA, antiemetics, CT abdomen Differential Diagnosis Differential Diagnoses: The differential diagnosis associated with the presentation includes See above Admission/Observation Consideration of admission/observation: Escalation of care including admission/observation considered Escalation of care including admission/observation considered however given workup today not warranted at this time. Lab Data MDM Lab Attestation statement: I reviewed the patient's lab results. This eye ptosis noted with a WBC of 19.5, with slight left-sided shift likely reactive, chemistry nondiagnostic. UA appears to be continue contaminated, she is asymptomatic. Positive for THC, ethyl alcohol 28 02/06/24 16:37 02/06/24 16:37 Labs: Lab Results 02/06/24 02/06/24 02/06/24 Range/Units 16:37 18:37 18:42 WBC 19.5 H (4.8-10.8) X10*3/uL RBC 4.72 (4.20-5.50) X10*6/uL Hgb 13.2 (12.0-16.0) g/dl Hct 39.2 (37.0-47.0) % MCV 83.1 (80.0-98.0) fL MCH 28.0 (27.0-33.0) pg MCHC 33.7 (31.0-35.0) g/dl RDW 13.8 (11.0-16.0) % Plt Count 440 H (160-400) X10*3/uL MPV 8.8 L (9.4-12.3) fL Immature Gran % (Auto) 0.4 (0.0-0.4) % Neut % (Auto) 84.4 H (45-73) % Lymph % (Auto) 12.0 L (20-40) % [place] % (Auto) 2.9 (2-11) % Eos % (Auto) 0.1 (0-4) % Baso % (Auto) 0.2 (0-2) % Lymph # (Auto) 2.3 (1.2-4.9) X10*3/uL [place] # (Auto) 0.6 (0.1-1.2) X10*3/uL Eos # (Auto) 0.0 (0.0-0.4) X10*3/uL Baso # (Auto) 0.0 (0.0-0.2) X10*3/uL Abs Immat Gran (auto) 0.08 H (0.00-0.03) X10*3/uL Absolute Neuts (auto) 16.4 H (2.0-8.3) x10*3/uL Absolute Nucleated RBC 0.000 (0.0-0.012) X10*3/uL Nucleated RBC % (auto) 0.0 (0.0-0.2) /100WBC Sodium 145 (135-145) mmol/L Potassium 3.6 (3.3-5.1) mmol/L Chloride 110 H (96-108) mmol/L Carbon Dioxide 20 L (22-29) mmol/L Anion Gap 19 (12-20) BUN 14 (9-16) mg/dL Creatinine 0.75 (0.5-1.4) mg/dL Estim Creat Clear Calc 113.1 Estimated GFR > 60 Random Glucose 116 H (60-115) mg/dL Calcium 10.1 D (8.4-10.2) mg/dL Total Bilirubin 0.8 (0.0-1.0) mg/dL AST 18 (5-31) U/L ALT 15 (0-31) U/L Alkaline Phosphatase 55 (39-117) U/L Total Protein 8.4 H (6.5-8.0) g/dL Albumin 5.0 (3.5-5.0) g/dL Lipase 13 (8-78) U/L Beta HCG, Quant < 2 mIU/mL Urine Color Yellow Urine Appearance Cloudy Urine pH 8.0 (5.0-9.0) Ur Specific [place] 1.020 (1.005-1.025) Urine Protein Trace (Neg-Trace) mg/dL Urine Glucose (UA) Negative (Negative) mg/dL Urine Ketones 80 (Negative) mg/dL Urine Blood Large (3+) H (Negative) Urine Nitrite Negative (Negative) Ur Leukocyte Esterase Small (1+) H (Negative) Urine RBC 11-20 H (0-2) /HPF Urine WBC 6-10 H (0-5) /HPF Ur Squamous Epith Cells 11-20 (0-2) /HPF Urine Bacteria 4+ (None Seen) Hyaline Casts 0-2 (0-2) /LPF Salicylates < 5.0 L (15-30) mg/dL Urine Opiates Screen Not Detected (Not Detect) Ur Buprenorphine Scrn Not Detected (Not Detect) ng/mL Ur Oxycodone Screen Not Detected (Not Detect) ng/mL Urine Methadone Screen Not Detected (Not Detect) ng/mL Urine Fentanyl Screen Not Detected (Not Detect) Acetaminophen < 3 (<30) mcg/mL Ur Barbiturates Screen Not Detected (Not Detect) Ur Phencyclidine Scrn Not Detected (Not Detect) Ur Amphetamines Screen Not Detected (Not Detect) U Benzodiazepines Scrn Not Detected (Not Detect) Urine Cocaine Screen Not Detected (Not Detect) U Marijuana (THC) Screen POSITIVE H (Not Detect) Ethyl Alcohol 28 mg/dL Radiology Impression Discussion of test interpretation with radiology: I have reviewed the radiologist's reading. Radiologist Impression: FINDINGS: LUNG BASES: The visualized lung bases are unremarkable. LIVER, GALLBLADDER, AND BILIARY TREE: The liver is normal in size, shape, and attenuation. No focal hepatic lesion or biliary ductal dilatation is present. The gallbladder has been removed. PANCREAS: Unremarkable. SPLEEN: Unremarkable. ADRENAL GLANDS: Unremarkable. KIDNEYS AND URETERS: The kidneys are normal in size, shape, and attenuation. No hydronephrosis, hydroureter, or calculi seen. No perinephric stranding. BLADDER: Unremarkable. GASTROINTESTINAL TRACT: Wall thickening and edema of the colon suggestive of colitis. No evidence of obstruction. Normal small bowel. The appendix is unremarkable. No ascites. ABDOMINAL WALL: No significant hernia is appreciated. LYMPH NODES: Normal. VASCULAR: Unremarkable. PELVIC VISCERA: Unremarkable. OSSEOUS STRUCTURES: Unremarkable. CT/CT abdomen pelvis w IV con IMPRESSION: Colitis. Fleischner guidelines were followed. Dictated By: Jovana Christiansen MD Signed By: <Electronically signed Critical Care Time Critical Care Time Critical Care Time: Yes Total Critical Care Time: 35 Attestation: I have personally provided critical care time exclusive of time spent on separately billable procedures. Time includes review of lab data, radiology results, discussion with consultants, and monitoring for potential decompensation. Intervention performed as documented. Discharge Plan Discharge Clinical Impression: Colitis Patient Disposition: Admitted As Inpatient Instructions: Acute Nausea and Vomiting (ED), Colitis (ED) Additional Instructions: Your seen in the emergency department due to nausea and vomiting. Your CT scan shows evidence of colitis which is inflammation of your colon. Please stick to a bland diet, avoid spicy or fried food. Avoid alcohol. Drink plenty of fluids get plenty of rest. Take Zofran as needed for nausea. I am also giving you a prescription for prednisone, this is anti-inflammatory, this will help reduce the inflammation in your colon. Please follow-up with the GI specialist, call on Thursday to make an appointment. If any new or worsening symptoms occur including but not limited to fevers, chills, worsening abdominal pain, nausea, vomiting, chest pain or shortness of breath, please return for re-evaluation. Prescriptions: No Action prednisone 10 mg tablet 10 mg PO DIRECTED 6 Days Qty: 12 0RF Rx Instructions: Take 3 tablets x2 days, 2 tablets x2 days, 1 tablet x2 days albuterol sulfate 90 mcg/actuation HFA aerosol inhaler 2 puff inhalation Q6H PRN (Reason: shortness of breath or wheezing) 30 Days Qty: 8.5 6RF budesonide-formoterol [Symbicort] 80-4.5 mcg/actuation HFA aerosol inhaler 2 puff inhalation BID 30 Days Qty: 10.2 6RF oseltamivir [Tamiflu] 75 mg capsule 75 mg PO BID 5 Days Qty: 10 0RF [place] [facility] [facility] [place] [facility] [place] Group] Print Language: Egyptian
[2024-02-06] MEDS: diphenhydrAMINE HCL 50 MG/ML VIAL 25 MG IVPUSH (18:30)
[2024-02-06] MEDS: Prochlorperazine Edisylate 10 MG/2 ML VIAL IVPUSH (18:30)
[2024-02-06 18:51] LABS: Appearance Urine Cloudy; Color Urine Yellow; Glucose Urine UA Negative (Negative); Leukocyte Esterase Urine Small (1+) (Negative); Nitrite Urine Negative (Negative); UMIC TRIGGER UACC YES; Urine Blood Large (3+) (Negative); Urine Ketones 80 mg/dL (Negative); Urine Protein Trace mg/dL (Neg-Trace)
[2024-02-06 19:00] LABS: Amphetamine Screen Urine Not Detected (Not Detect); Barbiturates, Urine Not Detected (Not Detect); Benzodiazepines Screen Urine Not Detected (Not Detect); Buprenorphine Scr Not Detected (Not Detect); Cannabinoid Screen Urine POSITIVE (Not Detect); Cocaine Screen Urine Not Detected (Not Detect); Fentanyl, urine Not Detected (Not Detect); Methadone Screen, Urine Not Detected (Not Detect); Opiate Screen Urine Not Detected (Not Detect); Oxycodone Screen Urine Not Detected (Not Detect); Phencyclidine Screen Urine Not Detected (Not Detect)
[2024-02-06 19:01] LABS: Bacteria Urine 4+ (None Seen); Hyaline Casts Urine 0-2 /LPF (0-2); UACC Culture Trigger YES
[2024-02-06 19:44] VITALS: BP 131/71; PULSE 62; RESP 16; TEMP 36.6; O2SAT 97
[2024-02-06] MEDS: iohexoL 350 MG/ML 100 ML INFUS..BTL 85 ML IV (20:24)
--- NOTE | 2024-02-06 20:39 | PC.NURSE ---
Patient returned from CT scan. 1 L NS infusing w/o issues, patient denies any pain, resting in a stretcher bed with her eyes closed, breathing non-labored, even chest wall rise and fall. Call robert placed in patient's reach.
[2024-02-06 22:21] VITALS: BP 107/69; PULSE 72; RESP 16; TEMP 37; O2SAT 97
--- NOTE | 2024-02-06 22:22 | MHC.EDTECH ---
Hourly rounds and vitals completed,patient is resting comfortably,call robert in reach
[2024-02-07] VITALS (8 sets, daily range): BP systolic 105–140; BP diastolic 52–78; PULSE 52–66; RESP 15–18; TEMP 36.3–37.1; O2SAT 95–98
--- NOTE | 2024-02-07 00:20 | MHC.EDTECH ---
Hourly rounds and vitals completed,patient is resting call robert in reach
--- NOTE | 2024-02-07 01:28 | MHC.EDTECH ---
This tech walked in on patient sticking fingers down her throat to vomit, patient vomited all over the floor,RN and provider were made aware
--- NOTE | 2024-02-07 02:06 | MHC.EDTECH ---
Hourly rounds and vitals completed,warm blankets given,belongings list completed,call robert in reach.
[2024-02-07] MEDS: Prochlorperazine Edisylate 10 MG/2 ML VIAL IVPUSH (03:41)
--- NOTE | 2024-02-07 04:20 | MHC.EDTECH ---
Hourly rounds and vitals completed,patient got up to commode and urinated a large amount,patient is resting back in bed,warm blanket given.
--- NOTE | 2024-02-07 04:24 | P.HPHOSP_ITS ---
History of Present Illness Date of Service: 02/07/24 Attending physician on admission: Ellen Alexandra Chief Complaint: Abdominal pain Thomas Fuller is a 28 years old woman with no significant past medical history presents to the emergency department complaining of epigastric pain associated with nausea, nonbloody vomiting and nonbloody diarrhea. She mentioned that yesterday she was drinking excessively. Does not drink every day. Denies fevers or chills. Did not report any acute cardiopulmonary or genitourinary symptoms. She is currently finishing her menstrual period. She drinks alcohol occasionally, smokes marijuana and denies illicit drug use. Abdominal surgical history is remarkable for cholecystectomy. In the ED, she was found to have stable vital signs. Blood workup is remarkable for leukocytosis of 19.5. Hemoglobin and platelets are unremarkable. CO2 slightly low. LFTs and lipase are normal. There are no significant electrolyte imbalances. test negative. Abdomen pelvis CT scan showed finding consistent with colitis. ED tx: NS 2 L bolus, Zofran 4 mg IV, Compazine 10 mg IV, Benadryl 25 mg IV. Review of Systems 2 Review of Systems: All 12 systems were reviewed and normal except as noted in HPI. [facility] Medical History Right hand paresthesia Nephrolithiasis Surgical History History of cholecystectomy Social History Housing: Apartment Alcohol intake: current Alcohol intake frequency: holidays/special occasions only Alcohol type: hard liquor Patient Tobacco Use Status: Never used Tobacco Tobacco use type: Cigarette e-Cigarette/Vaping Use: Never Used Second Hand Smoke Exposure: No Use of substances other than those prescribed or required for medical reasons: Yes Substance Use Type: Marijuana Advance Directives: No Advance Directives Information Provided: No Nutrition Risks: No Nutritional Risk service: No Current occupational status: employed Current occupation: [employer] Cognitive needs: No Hearing needs: No Vision needs: No Meds Allergies Allergy/AdvReac Type Severity Reaction Status Date / Time amoxicillin Allergy Unknown Rash Verified 02/06/24 16:29 amitriptyline AdvReac Intermediate Fatigued Verified 02/06/24 16:29 trazodone AdvReac Intermediate Anxiety Verified 02/06/24 16:29 Active Medications: Current Medications Prochlorperazine Edisylate (Prochlorperazine Edisylate 10 Mg/2 Ml Vial) 10 mg IVPUSH Q6H PRN PRN Reason: Nausea and Vomiting Last Admin: 02/07/24 03:41 Dose: 10 mg Sodium Chloride (0.9 % Sodium Chloride Flush 3 Ml Syringe) 3 ml IVFLUSH QSHIFT [facility] Physical Exam 2 Vital Signs and Narrative: Vital Signs: Last Vital Signs Temp 98.2 F 02/07/24 04:17 Pulse 62 02/07/24 04:17 Resp 16 02/07/24 04:17 BP 112/68 02/07/24 04:17 Pulse Ox 98 02/07/24 04:17 O2 Del Method Room Air 02/07/24 04:17 BMI result Body Mass Index 27.5 Constitutional - Awake and Alert, looks uncomfortable due to nausea and abdominal discomfort. Cooperative. HEENT - pupils equally round. Normal sclerae. Dry oral mucosa Heart r - S1S2, RRR. Lungs - Normal lung expansion, Normal respiratory effort, No respiratory distress, CTA bilaterally Abdomen - Not distended. Generalized tenderness to palpation.; increased BS; No rebound or guarding Extremities - no calf tenderness bilaterally, no swelling Musculoskeletal - Normal inspection, normal ROM Skin - Warm/Dry Neurological - Alert & oriented x3. No focal weakness. Normal speech. Psychological - Appropriate affect Results Labs 02/06/24 16:37 02/06/24 16:37 Labs: Laboratory Results - last 24 hr 02/06/24 02/06/24 02/06/24 16:37 18:37 18:42 MCV 83.1 MCH 28.0 MCHC 33.7 RDW 13.8 Plt Count 440 H MPV 8.8 L Immature Gran % (Auto) 0.4 Neut % (Auto) 84.4 H Lymph % (Auto) 12.0 L [place] % (Auto) 2.9 Eos % (Auto) 0.1 Baso % (Auto) 0.2 Lymph # (Auto) 2.3 [place] # (Auto) 0.6 Eos # (Auto) 0.0 Baso # (Auto) 0.0 Abs Immat Gran (auto) 0.08 H Absolute Neuts (auto) 16.4 H Absolute Nucleated RBC 0.000 Nucleated RBC % (auto) 0.0 Anion Gap 19 Estim Creat Clear Calc 113.1 Estimated GFR > 60 Random Glucose 116 H Calcium 10.1 D Total Bilirubin 0.8 AST 18 ALT 15 Alkaline Phosphatase 55 Total Protein 8.4 H Albumin 5.0 Lipase 13 Beta HCG, Quant < 2 Urine Color Yellow Urine Appearance Cloudy Urine pH 8.0 Ur Specific [place] 1.020 Urine Protein Trace Urine Glucose (UA) Negative Urine Ketones 80 Urine Blood Large (3+) H Urine Nitrite Negative Ur Leukocyte Esterase Small (1+) H Urine RBC 11-20 H Urine WBC 6-10 H Ur Squamous Epith Cells 11-20 Urine Bacteria 4+ Hyaline Casts 0-2 Salicylates < 5.0 L Urine Opiates Screen Not Detected Ur Buprenorphine Scrn Not Detected Ur Oxycodone Screen Not Detected Urine Methadone Screen Not Detected Urine Fentanyl Screen Not Detected Acetaminophen < 3 Ur Barbiturates Screen Not Detected Ur Phencyclidine Scrn Not Detected Ur Amphetamines Screen Not Detected U Benzodiazepines Scrn Not Detected Urine Cocaine Screen Not Detected U Marijuana (THC) Screen POSITIVE H Ethyl Alcohol 28 Imaging Radiologist's Impressions: Impressions Abdomen/Pelvis CT 02/06/24 20:30 IMPRESSION: Colitis. Fleischner guidelines were followed. Assessment and Plan (1) Acute alcoholic gastritis: Qualifiers: Gastritis bleeding: without bleeding Qualified Code(s): K29.20 - Alcoholic gastritis without bleeding Status: Acute (2) Colitis: Status: Acute (3) Leukocytosis: Qualifiers: Leukocytosis type: unspecified Qualified Code(s): D72.829 - Elevated white blood cell count, unspecified Status: Acute Plan Thomas Fuller is a 28 years old woman admitted with: * Abdominal pain, nausea and diarrhea secondary to acute gastritis and colitis secondary to excessive alcohol intake. Admit to hospitalist service. Keep NPO. Continue IV hydration. Start treatment with Protonix 40 mg IV twice daily. Antiemetic therapy as needed. * Leukocytosis likely secondary to vomiting/diarrhea/dehydration. Continue IV fluids. Recheck WBC. * History of asthma. Not exacerbated. Continue inhalers. DVT prophylaxis: SCDs, early ambulation Code status: Full Patient will need hospitalization for at least 2 midnights for acute gastritis and colitis secondary to recent excessive alcohol intake treatment with IV fluids, anti-reflux and antiemetic therapy. Quality Stroke Does the patient have a stroke diagnosis?: No VTE Prior VTE?: No VTE Risk Level:: Medical - low VTE Device Contraindication: N/A - Device Ordered VTE Drug Contraindication: Treatment Not Indicated
--- NOTE | 2024-02-07 04:43 | PM.IMHP ---
History of Present Illness Date of Service: 02/07/24 Attending physician on admission: Ellen Alexandra Chief Complaint: Lower back pain PMFSH Medical History Right hand paresthesia Nephrolithiasis Surgical History History of cholecystectomy Social History Housing: Apartment Alcohol intake: current Alcohol intake frequency: holidays/special occasions only Alcohol type: hard liquor Patient Tobacco Use Status: Never used Tobacco Tobacco use type: Cigarette e-Cigarette/Vaping Use: Never Used Second Hand Smoke Exposure: No Use of substances other than those prescribed or required for medical reasons: Yes Substance Use Type: Marijuana Advance Directives: No Advance Directives Information Provided: No Nutrition Risks: No Nutritional Risk service: No Current occupational status: employed Current occupation: [employer] Cognitive needs: No Hearing needs: No Vision needs: No Meds Allergies Allergy/AdvReac Type Severity Reaction Status Date / Time amoxicillin Allergy Unknown Rash Verified 02/06/24 16:29 amitriptyline AdvReac Intermediate Fatigued Verified 02/06/24 16:29 trazodone AdvReac Intermediate Anxiety Verified 02/06/24 16:29 Active Medications: Current Medications Al Hydroxide/Mg Hydroxide (Magnesium Hydrox/Alum Hydrox 30 Ml Oral.Susp) 30 ml PO ONCE ONE Stop: 02/07/24 04:26 Hydromorphone HCl (Hydromorphone Hcl 1 Mg/Ml Syringe) 1 mg IVPUSH ONCE STA; Protocol Stop: 02/07/24 04:39 Lactated Ringer's (Lr) 1,000 mls @ 125 mls/hr IVCONT .Q8H AVE Non-Formulary Medication (Budesonide-Formoterol [Symbicort]) [address] Pantoprazole Sodium (Pantoprazole Sodium 40 Mg/10 Ml Vial) 40 mg IVPUSH BID@0630,[address] Prochlorperazine Edisylate (Prochlorperazine Edisylate 10 Mg/2 Ml Vial) 10 mg IVPUSH Q6H PRN PRN Reason: Nausea and Vomiting Last Admin: 02/07/24 03:41 Dose: 10 mg Sodium Chloride (0.9 % Sodium Chloride Flush 3 Ml Syringe) 3 ml IVFLUSH QSHIFT [facility] Physical Exam Vital Signs and Narrative: Vital Signs: Last Vital Signs Temp 98.2 F 02/07/24 04:17 Pulse 62 02/07/24 04:17 Resp 16 02/07/24 04:17 BP 112/68 02/07/24 04:17 Pulse Ox 98 02/07/24 04:17 O2 Del Method Room Air 02/07/24 04:17 BMI result Body Mass Index 27.5 Results Labs 02/06/24 16:37 02/06/24 16:37 Labs: Laboratory Results - last 24 hr 02/06/24 02/06/24 02/06/24 16:37 18:37 18:42 MCV 83.1 MCH 28.0 MCHC 33.7 RDW 13.8 Plt Count 440 H MPV 8.8 L Immature Gran % (Auto) 0.4 Neut % (Auto) 84.4 H Lymph % (Auto) 12.0 L [place] % (Auto) 2.9 Eos % (Auto) 0.1 Baso % (Auto) 0.2 Lymph # (Auto) 2.3 [place] # (Auto) 0.6 Eos # (Auto) 0.0 Baso # (Auto) 0.0 Abs Immat Gran (auto) 0.08 H Absolute Neuts (auto) 16.4 H Absolute Nucleated RBC 0.000 Nucleated RBC % (auto) 0.0 Anion Gap 19 Estim Creat Clear Calc 113.1 Estimated GFR > 60 Random Glucose 116 H Calcium 10.1 D Total Bilirubin 0.8 AST 18 ALT 15 Alkaline Phosphatase 55 Total Protein 8.4 H Albumin 5.0 Lipase 13 Beta HCG, Quant < 2 Urine Color Yellow Urine Appearance Cloudy Urine pH 8.0 Ur Specific [place] 1.020 Urine Protein Trace Urine Glucose (UA) Negative Urine Ketones 80 Urine Blood Large (3+) H Urine Nitrite Negative Ur Leukocyte Esterase Small (1+) H Urine RBC 11-20 H Urine WBC 6-10 H Ur Squamous Epith Cells 11-20 Urine Bacteria 4+ Hyaline Casts 0-2 Salicylates < 5.0 L Urine Opiates Screen Not Detected Ur Buprenorphine Scrn Not Detected Ur Oxycodone Screen Not Detected Urine Methadone Screen Not Detected Urine Fentanyl Screen Not Detected Acetaminophen < 3 Ur Barbiturates Screen Not Detected Ur Phencyclidine Scrn Not Detected Ur Amphetamines Screen Not Detected U Benzodiazepines Scrn Not Detected Urine Cocaine Screen Not Detected U Marijuana (THC) Screen POSITIVE H Ethyl Alcohol 28 Imaging Radiologist's Impressions: Impressions Abdomen/Pelvis CT 02/06/24 20:30 IMPRESSION: Colitis. Fleischner guidelines were followed. Quality Stroke Does the patient have a stroke diagnosis?: No VTE Prior VTE?: No VTE Risk Level:: Medical - low VTE Device Contraindication: N/A - Device Ordered VTE Drug Contraindication: Treatment Not Indicated
[2024-02-07] MEDS: HYDROmorphone HCl 1 MG/ML SYRINGE IVPUSH (05:21)
[2024-02-07] MEDS: Pantoprazole Sodium 40 MG/10 ML VIAL IVPUSH ×2 (05:21→15:39)
[2024-02-07] MEDS: Magnesium Hydrox/Alum Hydrox 30 ML ORAL.SUSP PO (05:22)
[2024-02-07] MEDS: Lactated Ringers 1,000 ML 125 ML IVCONT ×3 (05:37→20:39)
[2024-02-07 05:40] LABS: MANUAL DIFF FLAG NO
[2024-02-07 05:43] LABS: Basophils Percent Auto 0.2 % (0-2); Hematocrit 32.7 % (37.0-47.0); Hemoglobin 10.9 g/dl (12.0-16.0); Imm Gran Abs Auto 0.04 X10*3/uL (0.00-0.03); Imm Gran Pct Auto 0.3 % (0.0-0.4); Lymphocytes Absolute Auto 1.3 X10*3/uL (1.2-4.9); Lymphocytes Percent Auto 8.8 % (20-40); Mean Corpuscular HGB Conc 33.3 g/dl (31.0-35.0); Mean Corpuscular Hemoglobin 27.9 pg (27.0-33.0); Mean Corpuscular Volume 83.6 fL (80.0-98.0); Mean Platelet Volume 8.9 fL (9.4-12.3); Monocytes Absolute Auto 0.4 X10*3/uL (0.1-1.2); Monocytes Percent Auto 2.9 % (2-11); Neutrophils Absolute Auto 13.1 x10*3/uL (2.0-8.3); Neutrophils Percent Auto 87.8 % (45-73); Platelet Count 348 X10*3/uL (160-400); Red Blood Count 3.91 X10*6/uL (4.20-5.50); White Blood Count 14.9 X10*3/uL (4.8-10.8)
[2024-02-07 06:07] LABS: Alanine Aminotransferase 14 U/L (0-31); Albumin Level 4.1 g/dL (3.5-5.0); Alkaline Phosphatase 45 U/L (39-117); Anion Gap 14 (12-20); Aspartate Amino Transferase 14 U/L (5-31); Bilirubin Total 1.3 mg/dL (0.0-1.0); Blood Urea Nitrogen 15 mg/dL (9-16); Calcium 8.8 mg/dL (8.4-10.2); Carbon Dioxide 21 mmol/L (22-29); Chloride 113 mmol/L (96-108); Creatinine Clr Calc Pharmacy 110.1; Estimated Glomerular Filt Rate > 60; Glucose Random 129 mg/dL (60-115); Potassium 3.7 mmol/L (3.3-5.1); Sodium 144 mmol/L (135-145)
[2024-02-07] MEDS: 0.9 % Sodium Chloride Flush 3 ML SYRINGE IVFLUSH ×2 (08:01→20:34)
[2024-02-07] MEDS: levoFLOXacin/D5W 750 MG/150 ML PIGGYBACK 100 MG IV (08:02)
--- NOTE | 2024-02-07 09:24 | PM.EVENT ---
Event Note Date of Service: 02/07/24 Event Note: Seen and evaluated this morning feels little better and asking for food start clears start IV Levaquin for colitis continue supportive measures Time Spent With Patient Time: Total time managing care of this patient today ____ minutes.
--- NOTE | 2024-02-07 09:59 | PHA.MEDREC ---
Pharmacy Consult ? Medication Reconciliation Pharmacy has completed the medication reconciliation.
--- NOTE | 2024-02-07 13:30 | MHC.CM.PN ---
Addendum entered by Allyssa Dave RN 02/07/24 13:39: PATIENT STATES THAT SHE BELIEVES THERE IS A COPY OF HCP NAMING HER MOTHER SHE IS AWARE THAT IF SHE WOULD LIKE, ONE CAN BE DONE HERE Original Note: PATIENT FULLY INDEPENDENT SHE DENIES NEED FOR HCP AT THIS TIME. PLAN WILL LIKELY BE HOME WITH NO NEED FOR SERVICES. SHE IS AWARE THAT CM CAN ASSIST WITH HCP DURING HER STAY IF SHE IS TO CHANGE HER MIND. PATIENT IS ABLE TO ARRANGE HER TRANSPORT HOME WHEN DC. CM FOLLOWING
[2024-02-08 03:43] VITALS: BP 106/62; PULSE 60; RESP 18; TEMP 36.3; O2SAT 95
[2024-02-08] MEDS: Lactated Ringers 1,000 ML 125 ML IVCONT (04:21)
[2024-02-08] MEDS: Ketorolac Tromethamine 30 MG/ML VIAL IVPUSH (04:59)
[2024-02-08 06:10] LABS: Hemoglobin 10.5 g/dl (12.0-16.0); Mean Corpuscular HGB Conc 32.8 g/dl (31.0-35.0); Mean Corpuscular Hemoglobin 28.2 pg (27.0-33.0); Mean Platelet Volume 9.3 fL (9.4-12.3); Platelet Count 327 X10*3/uL (160-400); Red Blood Count 3.72 X10*6/uL (4.20-5.50); Red Cell Distribution Width 13.9 % (11.0-16.0)
[2024-02-08 06:11] LABS: Anion Gap 10 (12-20); Blood Urea Nitrogen 13 mg/dL (9-16); Calcium 8.6 mg/dL (8.4-10.2); Carbon Dioxide 24 mmol/L (22-29); Chloride 109 mmol/L (96-108); Creatinine Clr Calc Pharmacy 128.4; Estimated Glomerular Filt Rate > 60; Glucose Random 91 mg/dL (60-115); Potassium 3.3 mmol/L (3.3-5.1); Sodium 140 mmol/L (135-145)
[2024-02-08] MEDS: Pantoprazole Sodium 40 MG/10 ML VIAL IVPUSH (06:32)
[2024-02-08] MEDS: levoFLOXacin/D5W 750 MG/150 ML PIGGYBACK 100 MG IV (07:07)
[2024-02-08] MEDS: 0.9 % Sodium Chloride Flush 3 ML SYRINGE IVFLUSH (07:11)
[2024-02-08 07:16] VITALS: BP 129/74; PULSE 48; RESP 17; TEMP 36.4; O2SAT 98
[2024-02-08 07:26] VITALS: PULSE 58
[2024-02-08] MEDS: Fluticasone/Vilanterol 100/25 BLST.W.DEV 1 PUFF INHALE (07:26)
[2024-02-08 07:27] VITALS: PULSE 70; RESP 15; O2SAT 98
--- NOTE | 2024-02-08 11:19 | PM.DS ---
DS: Providers Provider Date of Service: 02/09/24 Date of admission: 02/07/24 03:05 Primary care physician: Edilberto Hurd PA-C DS: Diagnosis Discharge Diagnosis (1) Acute alcoholic gastritis: Status: Acute (2) Colitis: Status: Acute (3) Leukocytosis: Status: Acute DS: Summary Hospital Course Hospital Course: Admission note Thomas Fuller is a 28 years old woman with no significant past medical history presents to the emergency department complaining of epigastric pain associated with nausea, nonbloody vomiting and nonbloody diarrhea. She mentioned that yesterday she was drinking excessively. Does not drink every day. Denies fevers or chills. Did not report any acute cardiopulmonary or genitourinary symptoms. She is currently finishing her menstrual period. She drinks alcohol occasionally, smokes marijuana and denies illicit drug use. Abdominal surgical history is remarkable for cholecystectomy. In the ED, she was found to have stable vital signs. Blood workup is remarkable for leukocytosis of 19.5. Hemoglobin and platelets are unremarkable. CO2 slightly low. LFTs and lipase are normal. There are no significant electrolyte imbalances. test negative. Abdomen pelvis CT scan showed finding consistent with colitis. ED tx: NS 2 L bolus, Zofran 4 mg IV, Compazine 10 mg IV, Benadryl 25 mg IV. Hospital course The patient was treated for acute colitis with likely alcoholic gastritis with IV Abx of LEvaquin along with IV Pantoprazole and IV fluids with good response over the course of hospital stay as her pain and nausea resolved and her diet was advanced to regular with good tolerance. advised to quit alcohol. The patient made quicker than expected improvement and would not need a 2nd night in hospital. Discharge Plan Continue Levaquin for 4 more days Omeprazole for stomach protection Zofran for nausea Time Attestation Discharge Coordination Time (in mins): 34 Quality: Safe Use of Opioids Does Pt have an Active Cancer Diagnosis on the Problem List?: No Quality: Stroke Does the patient have a stroke diagnosis?: No Physical Exam Vital Signs: Vital Signs: Last Vital Signs Temp 97.5 F 02/08/24 07:16 Pulse 70 02/08/24 07:27 Resp 15 02/08/24 07:27 BP 129/74 02/08/24 07:16 Pulse Ox 98 02/08/24 07:16 O2 Del Method Room Air 02/08/24 07:16 BMI result Body Mass Index 27.5 Const: Other: Constitutional : Awake, interactive, not in distress Neck : Normal inspection, Supple Cardiovascular : RRR, no JVP, no lower extremity edema Respiratory : good bilateral air entry, no crackles, wheezes or rhonchi Gastrointestinal: soft, lax, Normal bowel sounds, Non tender Skin : Warm, Dry Neurological : Alert & oriented x3, No focal deficit DS: Data Data Completed and Pending Labs on day of discharge: Laboratory Results - last 24 hr 02/08/24 05:12 WBC 9.0 RBC 3.72 L Hgb 10.5 L Hct 32.0 L MCV 86.0 MCH 28.2 MCHC 32.8 RDW 13.9 Plt Count 327 MPV 9.3 L Absolute Nucleated RBC 0.000 Nucleated RBC % (auto) 0.0 Sodium 140 Potassium 3.3 Chloride 109 H Carbon Dioxide 24 Anion Gap 10 L BUN 13 Creatinine 0.66 Estim Creat Clear Calc 128.4 Estimated GFR > 60 Random Glucose [address] scan - abdomen: Radiologist's impression: ITS Impressions Abdomen/Pelvis CT 02/06/24 20:30 IMPRESSION: Colitis. Fleischner guidelines were followed. Discharge Plan Discharge Anticipated Discharge Date/Time: 02/08/24 11:17 Patient Disposition: Home, Self-Care Discharge Diagnosis: Acute colitis Alcoholic gastritis Referrals: [facility] [place] G[facility]enterology Services [Provider Group] Edilberto Hurd PA-C [Primary Care Provider] - 1 Week Discharge Medications: New levofloxacin 750 mg tablet 750 mg PO DAILY Qty: 4 0RF omeprazole 20 mg capsule,delayed release(DR/EC) 20 mg PO DAILY Qty: 30 0RF ondansetron 4 mg tablet,disintegrating 4 mg PO Q8H PRN (Reason: nausea and vomiting) Qty: 10 0RF Continued albuterol sulfate 90 mcg/actuation HFA aerosol inhaler 2 puff inhalation Q6H PRN (Reason: shortness of breath or wheezing) 30 Days Qty: 8.5 6RF budesonide-formoterol [Symbicort] 80-4.5 mcg/actuation HFA aerosol inhaler 2 puff inhalation BID 30 Days Qty: 10.2 6RF Discharge Orders: Discharge Order (Routine); Ordered 02/08/24 Ordered By: Ginger Jewell Diet: Advance to usual diet Activity on Discharge: As tolerated Stand Alone Forms: Patient Portal Discharge page Print Language: Lithuanian Activity Restrictions/Additional Instructions: Your CT scan shows evidence of colitis which is inflammation of your colon. Please stick to a bland diet, avoid spicy or fried food. Avoid alcohol. Drink plenty of fluids get plenty of rest. Take Zofran as needed for nausea. If any new or worsening symptoms occur including but not limited to fevers, chills, worsening abdominal pain, nausea, vomiting, chest pain or shortness of breath, please return for re-evaluation. Care Plan Goals: Read below Health Concerns: Read below Plan of Treatment: Read below Assessment: Continue Levaquin for 4 more days Omeprazole for stomach protection Zofran for nausea Patient Instructions: Acute Nausea and Vomiting (ED), Colitis (ED) Discharge Date/Time: 02/08/24 13:30
--- NOTE | 2024-02-08 12:28 | PC.NURSE ---
Tolerating diet, wanting to be d/c home today.
--- NOTE | 2024-02-08 12:47 | MHC.CM.PN ---
pt dcd home self care
== END 2024-02-08 13:30 | disposition home or self-care (01) | DRG 241 ==
LOC: HO.ED 02-07 02:22 → HO.EDOVER 02-07 03:20 → HO.S3 02-07 07:34
PROVIDERS: Physician Assistant Medical; Admitting Provider Internal Medicine; Emergency Provider Emergency Medicine; PCP Physician Assistant; Visit Provider Student in an Organized Health Care Education/Training Program
DX: K29.20 Alcoholic gastritis without bleeding (principal); F10.90 Alcohol use, unspecified, uncomplicated; J45.909 Unspecified asthma, uncomplicated; Y90.1 Blood alcohol level of 20-39 mg/100 ml; Z79.899 Other long term (current) drug therapy
CPT/HCPCS: 36415; 74177; 80048; 80053; 80143; 80179; 80307; 81001; 83690; 84702; 85025; 85027; 87086; 94640; 99221; 99285; C9113; J0737; J1170; J1200; J1885; J1956; J2405; J7120; Q9967

== ENCOUNTER → 2024-02-07 03:05 | Outpatient (BNV) | payer OTHER, SELFPAY | PROVIDERS: Admitting Provider Internal Medicine; Emergency Provider Emergency Medicine; PCP Physician Assistant; Visit Provider Internal Medicine | DX: K29.20 Alcoholic gastritis without bleeding (principal); K52.9 Noninfective gastroenteritis and colitis, unspecified; D72.829 Elevated white blood cell count, unspecified | CPT/HCPCS: 99222; 99239; 99499 ==

== ENCOUNTER 2024-02-24 13:33 | Outpatient (AMB) | payer OTHER, SELFPAY ==
--- NOTE | 2024-02-24 13:35 | A.OFFPC_ITS ---
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 Required: No Accompanied by: Self / Same As Patient Allergies amoxicillin Allergy (Unknown, Verified 02/24/24 13:50) Rash amitriptyline Adverse Reaction (Intermediate, Verified 02/24/24 13:50) Fatigued trazodone Adverse Reaction (Intermediate, Verified 02/24/24 13:50) Anxiety Medication List - Last Reconciled 02/24/24 by Edilberto Hurd PA-C albuterol sulfate 90 mcg/actuation 2 puffs inhalation Q6H PRN 30 days budesonide-formoterol 80-4.5 mcg/actuation (Symbicort) 2 puffs inhalation BID 30 days levofloxacin 750 mg PO DAILY omeprazole 20 mg PO DAILY ondansetron 4 mg PO Q8H PRN Tobacco use date assessed: 12/28/23 Dental Screening Dental Screen Date: 12/28/23 HPI [facility]/Acute colitis/Alcoholic gastritis HPI Details Patient is a 20-year-old female here today for hospital discharge follow-up. Patient has a past medical history significant for major depressive disorder. She was seen at the [facility] for acute abdominal pain and vomiting. CT did show colitis. She does admit to previously drinking some alcohol and smoking marijuana. She does smoke marijuana on a daily basis for her anxiety. She did have elevated white blood cell count at 19 She was admitted and placed on IV antibiotics and IV pantoprazole. She was advised to follow up with Gastroenterology for possible endoscopy and colonoscopy. She will continue on low gastric irritant diet (FODMAP). Currently she does feel better though still does intermittently have abdominal pains more located in the right upper abdominal quadrant. [facility] Medical History Right hand paresthesia Nephrolithiasis Surgical History History of cholecystectomy Social History Household Members: None Housing: Apartment Do you presently have visiting nurse or other home services: No Alcohol intake: current Alcohol intake frequency: holidays/special occasions only Alcohol type: hard liquor Patient Tobacco Use Status: Never used Tobacco Tobacco use type: Cigarette e-Cigarette/Vaping Use: Never Used Second Hand Smoke Exposure: No Substance Use Type: Marijuana service: No Current occupational status: employed Current occupation: [employer] Cognitive needs: No Hearing needs: No Vision needs: No Questionnaire Thrive Questionnaire Date Thrive assessed: 02/07/24 RAZ-7 AMB Questionnaire RAZ-7 Date RAZ - 7 assessed: 12/28/23 Source: Developed by Drs. Heri Armstrong, Delores Matamoros, Mauricio Keller and colleagues, with an educational christopher from [employer]. RAZ-7 Assessment Billing RAZ-7 Assessment Tool: pt declined-do not bill Review of Systems Const Denies headache(s) Eyes Denies loss of vision ENT Denies vertigo, Denies dizziness, Denies headache(s) and Denies sore throat Card Denies chest pain, Denies leg edema and Denies lightheadedness Resp Denies cough, Denies hemoptysis and Denies wheezing GI Reports abdominal pain, Denies melena, Reports bloating, Denies constipation, Denies diarrhea and Denies vomiting Denies urinary frequency, Denies dysuria and Denies urinary urgency Musc Denies arthralgias, Denies joint swelling, Denies numbness and Denies tingling Neuro Denies Abnormal speech present, Denies behavioral changes, Denies vertigo, Denies dizziness, Denies headache(s), Denies loss of vision, Denies memory loss, Denies numbness and Denies tingling Psych Denies anxiety, Denies behavioral changes, Denies depression, Denies memory loss and Denies panic attacks Roger/Lymph Denies easy bleeding and Denies easy bruising Aller/Immun Denies wheezing Physical exam (Primary Care) Vital Signs: Last Vital Signs Pulse 72 02/24/24 13:41 BP 106/62 02/24/24 13:41 Pulse Ox 98 02/24/24 13:41 Oxygen Delivery Method Room Air 02/24/24 13:41 BMI result Body Mass Index 30.3 Tobacco/Smoking Status: Tobacco use Status Tobacco use date assessed 12/28/23 02/24/24 13:36 Patient Tobacco Use Status Never used Tobacco 02/24/24 13:36 Tobacco use type Cigarette 02/24/24 13:36 e-Cigarette/Vaping Use Never Used 02/24/24 13:36 Thrive Assessment: Date of Thrive Assessment Date Thrive assessed 02/07/24 02/24/24 13:36 Const General: healthy appearing, no acute distress, alert and awake Nutritional Appearance: well nourished Orientation/consciousness: oriented to person, oriented to place and oriented to time HENMT Ears: TM's normal bilaterally General nose exam: Normal nasal mucous membranes and turbinates present Eyes Conjunctivae: conjunctivae normal Sclerae: sclerae normal Pupils: Equal, round and reactive pupils present Neck Neck: Yes no lymphadenopathy and Yes no JVD Thyroid: Thyroid normal Carotids: no bruits Resp Effort & Inspection: normal respiratory effort and not tachypneic Auscultation: no crackles, no rales, no rhonchi and no wheezes Cardio Rate: regular rate Rhythm: regular rhythm Heart sounds: no murmurs and normal S1 and S2 GI Palpation (GI): Soft to palpation, nontender, no hepatomegaly and no splenomegaly Auscultation: normal bowel sounds Skin General skin exam: no rashes or lesions noted and dry skin Neuro General: oriented to person, oriented to place and oriented to time Cranial nerves: Yes Equal, round and reactive pupils present Speech: No Abnormal speech present Gait exam (Neuro): Normal gait present Motor exam (neuro): no tremor noted Extrem Right upper extremity: full ROM Left upper extremity: full ROM Right lower extremity: full ROM; no edema Left lower extremity: full ROM; no edema Psych Mental Status: mental status grossly normal Speech and movement: Normal speech and movement present Affect: normal affect Attitude: cooperative Thought process: Normal thought process present Assessment and Plan Assessment & Plan (1) Hospital discharge follow-up: Code(s): Z09 - Encounter for follow-up examination after completed treatment for conditi ons other than malignant neoplasm Plan: As per HPI (2) Colitis: Code(s): K52.9 - Noninfective gastroenteritis and colitis, unspecified Plan: Patient's most recent hospital admission showing CT of the abdomen and pelvis with notable colitis. Unclear etiology at this time .? Inflammatory bowel disease. Will refer to Gastroenterology for possible colonoscopy for evaluation. (3) RAZ (generalized anxiety disorder): Comment: Moderate RAZ Code(s): F41.1 - Generalized anxiety disorder Plan: Patient continues to suffer with anxiety. She uses marijuana on a daily basis to help her with her anxiety which does help. She has not interested in pushing care with a mental health therapist at this time. She does express some interest in starting daily medication for her anxiety as well. Will start sertraline and follow-up with patient in 4-6 weeks to evaluate effectiveness of medication (4) MDD (major depressive disorder), recurrent episode, moderate: Code(s): F33.1 - Major depressive disorder, recurrent, moderate Orders: Orders Erythrocyte Sedimentation Rate 02/25/24 K52.9 - Noninfective gastroenteritis and colitis, unspecified Referrals Gastroenterology Referral K52.9 - Noninfective gastroenteritis and colitis, unspecified Medications: New ondansetron HCl 8 mg PO Q12H 7 days PRN 14 tabs 0RF nausea and vomiting K52.9 - Noninfective gastroenteritis and colitis, unspecified sertraline 50 mg PO DAILY 30 tabs 1RF F33.1 - Major depressive disorder, recurrent, moderate, F41.1 - Generalized anxiety disorder Discontinued levofloxacin Discontinued Reason: Doctor's Order 750 mg PO DAILY 4 tabs 0RF ondansetron Discontinued Reason: Change Referral Type 4 mg PO Q8H PRN 10 tabs 0RF nausea and vomiting Coding Level of Care Code Est Pt Level 4 (37192) Diagnoses Hospital discharge follow-up Z09 Colitis K52.9 RAZ (generalized anxiety disorder) F41.1 MDD (major depressive disorder), recurrent episode, moderate F33.1
[2024-02-24 13:41] VITALS: BP 106/62; PULSE 72; O2SAT 98; BMI 30.3
== END 2024-02-24 14:07 | disposition home or self-care (01) ==
PROVIDERS: PCP Physician Assistant; Visit Provider Physician Assistant
DX: K52.9 Noninfective gastroenteritis and colitis, unspecified (principal); Z09 Encounter for follow-up examination after completed treatment for conditions other than malignant neoplasm; F41.1 Generalized anxiety disorder; F33.1 Major depressive disorder, recurrent, moderate
CPT/HCPCS: 99214

== ENCOUNTER 2024-02-25 14:40 | Outpatient (REF) | payer OTHER, SELFPAY ==
[2024-02-25 15:00] LABS: MANUAL DIFF FLAG NO
[2024-02-25 15:31] LABS: Basophils Percent Auto 0.3 % (0-2); Eosinophils Absolute Auto 0.1 X10*3/uL (0.0-0.4); Eosinophils Percent Auto 0.9 % (0-4); Hematocrit 35.5 % (37.0-47.0); Hemoglobin 11.9 g/dl (12.0-16.0); Imm Gran Abs Auto 0.02 X10*3/uL (0.00-0.03); Imm Gran Pct Auto 0.2 % (0.0-0.4); Lymphocytes Absolute Auto 3.1 X10*3/uL (1.2-4.9); Lymphocytes Percent Auto 33.7 % (20-40); Mean Corpuscular HGB Conc 33.5 g/dl (31.0-35.0); Mean Corpuscular Hemoglobin 28.1 pg (27.0-33.0); Mean Corpuscular Volume 83.9 fL (80.0-98.0); Mean Platelet Volume 9.1 fL (9.4-12.3); Monocytes Absolute Auto 0.6 X10*3/uL (0.1-1.2); Monocytes Percent Auto 6.1 % (2-11); Neutrophils Absolute Auto 5.3 x10*3/uL (2.0-8.3); Neutrophils Percent Auto 58.8 % (45-73); Platelet Count 376 X10*3/uL (160-400); Red Blood Count 4.23 X10*6/uL (4.20-5.50)
[2024-02-25 16:51] LABS: Erythrocyte Sedimentation Rate 9 MM/HR (0-20)
[2024-02-25 16:53] LABS: Alanine Aminotransferase 13 U/L (0-31); Albumin Level 4.5 g/dL (3.5-5.0); Alkaline Phosphatase 44 U/L (39-117); Anion Gap 14 (12-20); Aspartate Amino Transferase 14 U/L (5-31); Bilirubin Total 1.3 mg/dL (0.0-1.0); Blood Urea Nitrogen 9 mg/dL (9-16); Calcium 9.5 mg/dL (8.4-10.2); Carbon Dioxide 23 mmol/L (22-29); Chloride 106 mmol/L (96-108); Estimated Glomerular Filt Rate > 60; Glucose Fasting 85 mg/dL (60-99); Glucose Random 85 mg/dL (60-115); Potassium 3.7 mmol/L (3.3-5.1); Sodium 139 mmol/L (135-145); Total Protein 7.6 g/dL (6.5-8.0)
[2024-02-29 16:23] LABS: Vitamin D 25-OH, D2 <4 ng/mL; Vitamin D 25-OH, D3 9 ng/mL; Vitamin D 25-OH, Total 9 ng/mL (30-100)
== END 2024-02-25 14:41 | disposition home or self-care (01) ==
LOC: HO.LAB 14:40
PROVIDERS: Absent Provider Physician Assistant; PCP Physician Assistant; Visit Provider Nurse Practitioner Family
DX: E55.9 Vitamin D deficiency, unspecified (principal); K21.9 Gastro-esophageal reflux disease without esophagitis; Z13.1 Encounter for screening for diabetes mellitus; K52.9 Noninfective gastroenteritis and colitis, unspecified; R10.811 Right upper quadrant abdominal tenderness
CPT/HCPCS: 36415; 80053; 82306; 85025; 85027; 85652; 86160

== ENCOUNTER 2024-03-02 11:06 | Outpatient (AMB) | payer OTHER, SELFPAY ==
--- NOTE | 2024-03-02 11:10 | A.OFFVIS_ITS ---
Vital Signs 03/02/24 11:18 Height 5 ft 4 in Weight 175 lb BMI 30.0 BP 119/69 Blood Pressure Location Lt brachial Position Sitting Pulse 60 Intake Visit Reasons: Noninfective gastroenteritis and colitis Intake Note: Patient is seen in office for noninfective gastroenteritis and colitis. 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 Patient will continue avoiding dietary triggers and late night snacking. Will check for H pylori, transglutaminase to rule out celiac, lipase, liver profile. RUQ abdominal tenderness Negative Segura sign. Will send patient for liver enzymes. Will hold off on getting another ultrasound. Ultrasound just done recently and showed no acute processes. IBS (irritable bowel syndrome) Discussed with patient will FODMAP diet. List of food recommended as well as list of food to avoid given to patient. Patient will return in 3 months, sooner on as needed basis. Patient is agreeable to this plan and verbalizes understanding of instructions. She was given the opportunity to ask questions and all questions answered. ? Thank you for allowing me to participate in her care Plan Orders Orders Transglutaminase IgA 06/26/23 R10.9 Transglutaminase Ab IgG 06/26/23 R10.9 TSH reflex Free T4 06/26/23 K59.00 Lipase 06/26/23 R10.9 Liver Panel 06/26/23 R10.9 H Pylori Breath Test 06/26/23 Pancreatic Elastase-1 06/26/23 R10.9 Vitamin D 25-OH (D2 and D3) 06/26/23 E55.9 Vitamin B12 and Folate 06/26/23 R19.7 Medications New methylcellulose (laxative) (Citrucel) take it with full glass of water 500 mg PO DAILY 30 tabs 2RF K59.00 sennosides (Natural Senna Laxative) 17.2 mg (2 x 8.6 mg) PO BEDTIME 60 tabs 3RF constipation K59.00 Refilled omeprazole 20 mg PO DAILY 60 caps 1RF K21.9 TODAY'S VISIT Patient is here today to follow-up after ED visit. Patient was last seen by in June of 2023, missed her follow-up appointment. Patient did her blood work harsh show blood work completed. Transglutaminase not checked. Patient had very low vitamin-D levels and started taking her supplement yesterday. Patient continues to have a right upper quadrant pain postprandially. Doing little better after taking omeprazole, however she still is afraid to eat as anything she does eat she has epigastric pain and right upper quadrant pain and tenderness. Patient states that she is moving her bowels well without any issues. Denies any melena, hematochezia, unintentional weight loss or ribbon like stools. Patient was seen in the ER on February [address] showed colitis. Patient was admitted for observation. IV fluids and IV antibiotics given. Patient admits to smoking marijuana. Patient states that she tried to stay away from marijuana and reports that she is still has postprandial epigastric pain and right upper quadrant discomfort. Patient however did admit that her pain and nausea got better after taking a hot shower [facility] Medical History Right hand paresthesia Nephrolithiasis Surgical History History of cholecystectomy Social History Household Members: None Housing: Apartment Do you presently have visiting nurse or other home services: No Alcohol intake: current Alcohol intake frequency: holidays/special occasions only Alcohol type: hard liquor Patient Tobacco Use Status: Never used Tobacco Tobacco use type: Cigarette e-Cigarette/Vaping Use: Never Used Second Hand Smoke Exposure: No Substance Use Type: Marijuana service: No Current occupational status: employed Current occupation: [employer] Cognitive needs: No Hearing needs: No Vision needs: No Review of Systems Const Denies weight gain and Denies weight loss ENT Reports no additional complaints, Denies dysphagia and Denies odynophagia Card Reports no additional complaints Resp Reports no additional complaints GI Reports abdominal pain, Denies belching, Denies melena, Reports bloating, Denies change in bowel habits, Denies dysphagia, Denies excessive flatus, Reports dyspepsia, Reports heartburn, Denies diarrhea, Denies loose stools, Reports nausea, Denies odynophagia and Denies vomiting Reports no additional complaints Musc Reports no additional complaints Neuro Reports no additional complaints Psych Reports no additional complaints Endo Reports no additional complaints Physical Exam Vital Signs: Last Vital Signs Pulse 60 03/02/24 11:18 BP 119/69 03/02/24 11:18 BMI result Body Mass Index 30.0 Const General: healthy appearing, no acute distress and well developed Nutritional Appearance: obese Orientation/consciousness: patient oriented x3 Resp Effort & Inspection: normal respiratory effort, able to speak in complete sentences, no tracheal deviation and symmetric chest movement Auscultation: clear to auscultation bilaterally Cardio Rate: regular rate GI Inspection: Yes normal to inspection, No distended and Yes obesity Palpation (GI): Soft to palpation, not firm, Tenderness to palpation present (GI) and No hepatosplenomegaly present Auscultation: normal bowel sounds General: Yes no CVA tenderness Back/Spine/Pelvis Back: no CVA tenderness Skin General skin exam: elasticity normal, turgor normal and dry skin Neuro General: patient oriented x3 Psych Appearance: grossly normal Mental Status: mental status grossly normal Results Reviewed Results Reviewed: CT SCAN OF ABDOMEN AND PELVIS ED VISIT 02/06/2024 FINDINGS: LUNG BASES: The visualized lung bases are unremarkable. LIVER, GALLBLADDER, AND BILIARY TREE: The liver is normal in size, shape, and attenuation. No focal hepatic lesion or biliary ductal dilatation is present. The gallbladder has been removed. PANCREAS: Unremarkable. SPLEEN: Unremarkable. ADRENAL GLANDS: Unremarkable. KIDNEYS AND URETERS: The kidneys are normal in size, shape, and attenuation. No hydronephrosis, hydroureter, or calculi seen. No perinephric stranding. BLADDER: Unremarkable. GASTROINTESTINAL TRACT: Wall thickening and edema of the colon suggestive of colitis. No evidence of obstruction. Normal small bowel. The appendix is unremarkable. No ascites. ABDOMINAL WALL: No significant hernia is appreciated. LYMPH NODES: Normal. VASCULAR: Unremarkable. PELVIC VISCERA: Unremarkable. OSSEOUS STRUCTURES: Unremarkable. CT/CT abdomen pelvis w IV con IMPRESSION: Colitis. Laboratory Tests 11/20/21 02/06/24 02/25/24 12:59 16:37 14:59 AST 14 ALT 13 Alkaline Phosphatase 44 Total Protein 7.6 Lipase 13 Vitamin B12 414 Assessment & Plan Assessment & Plan (1) RUQ abdominal tenderness: Code(s): R10.811 - Right upper quadrant abdominal tenderness Category: Medical Qualifiers: Presence of rebound: absent Qualified Code(s): R10.811 - Right upper quadrant abdominal tenderness Plan Will rule out IBD, CRP and fecal calprotectin ordered. Patient continues to have a right upper quadrant discomfort postprandially, will send her for HIDA scan. Patient does have a mild right upper quadrant tenderness. Patient denies any nausea or vomiting. Will continue taking omeprazole. Will add famotidine at bedtime. Avoid dietary triggers and late night snacking. Staying upright for minimum 3 hours after meals discussed with patient. Patient will try to avoid marijuana. Patient was encouraged to increase fluid intake and activity to promote better bowel motility. I will see patient in 3 months, sooner on as needed basis. Patient is agreeable to this plan and verbalizes understanding of instructions. She was given the opportunity to ask questions and all questions answered. Thank you for allowing me to participate in her care Orders: Orders Transglutaminase Ab IgG Today R10.9 - Unspecified abdominal pain C Reactive Protein Today K58.9 - Irritable bowel syndrome without diarrhea Transglutaminase IgA Today R10.9 - Unspecified abdominal pain Calprotectin, Fecal Today R15.9 - Full incontinence of feces NM hepatobiliary wo pharm Today R10.811 - Right upper quadrant abdominal tenderness Medications: New famotidine (Pepcid) 20 mg PO BEDTIME 30 tabs 3RF K21.9 - Gastro-esophageal reflux disease without esophagitis Coding Level of Care Code Est Pt Level 4 (68066) Diagnoses Right upper quadrant abdominal tenderness without rebound tenderness R10.811 Presence of rebound: absent Time Spent (min) 35 Comment 20 minutes spent with patient and additional 15 minutes spent reviewing her records
[2024-03-02 11:18] VITALS: BP 119/69; PULSE 60
== END 2024-03-02 11:43 | disposition home or self-care (01) ==
PROVIDERS: PCP Physician Assistant; Visit Provider Nurse Practitioner Family
DX: R10.811 Right upper quadrant abdominal tenderness (principal)
CPT/HCPCS: 99214

== ENCOUNTER → 2024-03-02 11:06 | Outpatient (BNVA) | payer OTHER, SELFPAY | PROVIDERS: PCP Physician Assistant; Visit Provider Nurse Practitioner Family | DX: R10.811 Right upper quadrant abdominal tenderness (principal) | CPT/HCPCS: 99212 ==

== ENCOUNTER 2024-03-21 11:40 | Outpatient (REF) | payer OTHER, SELFPAY ==
[2024-03-21 13:07] LABS: Alanine Aminotransferase 19 U/L (0-31); Albumin Level 4.2 g/dL (3.5-5.0); Alkaline Phosphatase 43 U/L (39-117); Aspartate Amino Transferase 18 U/L (5-31); Bilirubin Direct 0.6 mg/dL (0.0-0.5); Bilirubin Total 2.4 mg/dL (0.0-1.0); C Reactive Protein < 0.10 mg/dL (< or = 0.50); Lipase 12 U/L (8-78); Total Protein 6.7 g/dL (6.5-8.0)
[2024-03-21 13:22] LABS: TSH reflex Free T4 1.08 uIU/mL (0.32-4.0)
[2024-03-21 13:32] LABS: Folate 8.8 ng/mL (> or = 4.0); Vitamin B12 351 pg/mL (200-900)
[2024-03-23 20:03] LABS: Transglutaminase Ab IgG <1.0 U/mL; Transglutaminase IgA <1.0 U/mL
== END 2024-03-21 11:41 | disposition home or self-care (01) ==
LOC: HO.LAB 11:40
PROVIDERS: PCP Physician Assistant; Visit Provider Nurse Practitioner Family
DX: R19.7 Diarrhea, unspecified (principal); R10.9 Unspecified abdominal pain; K59.00 Constipation, unspecified; K58.9 Irritable bowel syndrome, unspecified
CPT/HCPCS: 36415; 80076; 82607; 82746; 83690; 84443; 86140; 86364

== ENCOUNTER 2024-03-25 09:15 | Outpatient (AMB) | payer OTHER, SELFPAY ==
[2024-03-25 09:18] VITALS: BP 112/64; BMI 30.2
--- NOTE | 2024-03-25 09:18 | MHC.PC.OV ---
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 DOS: 02/06/24. DOD: 02/08/24. Pt was admitted at [facility] for Diagnosis of Acute alcoholic gastritis. Pt was referred to GI, and she was seen 03/02/24. She is scheduled for HIDA scan. She completed lab work ordered by GI. She is currently taking Pantoprazole and Zofran PRN. Has a scheduled Appointment f/u with GI 05/2024. Today reports feeling much better. Denies drinking alcohol or smoking weed, stopped after hospital discharged. [facility] Medical History Right hand paresthesia Nephrolithiasis Surgical History History of cholecystectomy Social History Household Members: None Housing: Apartment Do you presently have visiting nurse or other home services: No Alcohol intake: current Alcohol intake frequency: holidays/special occasions only Alcohol type: hard liquor Patient Tobacco Use Status: Never used Tobacco Tobacco use type: Cigarette e-Cigarette/Vaping Use: Never Used Second Hand Smoke Exposure: No Substance Use Type: Marijuana service: No Current occupational status: employed Current occupation: [employer] Cognitive needs: No Hearing needs: No Vision needs: No Questionnaire Thrive Questionnaire Date Thrive assessed: 02/07/24 RAZ-7 AMB Questionnaire RAZ-7 Date RAZ - 7 assessed: 12/28/23 Source: Developed by Drs. Heri Armstrong, Delores Matamoros, Mauricio Keller and colleagues, with an educational christopher from [employer]. Review of Systems Const All systems reviewed & are unremarkable except as noted in HPI and below Physical exam (Primary Care) Vital Signs: Last Vital Signs BP 112/64 03/25/24 09:18 Oxygen Delivery Method Room Air 03/25/24 09:18 BMI result Body Mass Index 30.2 Tobacco/Smoking Status: Tobacco use Status Tobacco use date assessed 12/28/23 03/25/24 09:22 Patient Tobacco Use Status Never used Tobacco 03/25/24 09:22 Tobacco use type Cigarette 03/25/24 09:22 e-Cigarette/Vaping Use Never Used 03/25/24 09:22 Thrive Assessment: Date of Thrive Assessment Date Thrive assessed 02/07/24 03/25/24 09:22 Const General: healthy appearing, no acute distress, alert and awake Nutritional Appearance: well nourished Orientation/consciousness: patient oriented x3 Resp Effort & Inspection: normal respiratory effort, able to speak in complete sentences and not tachypneic Auscultation: clear to auscultation bilaterally, no crackles, no rales, no rhonchi and no wheezes Cardio Rate: regular rate Rhythm: regular rhythm Heart sounds: no murmurs and normal S1 and S2 Bruits: no abdominal aortic bruits GI Inspection: Yes normal to inspection Palpation (GI): No Abdominal aortic bruit present, Soft to palpation, nontender, no hepatomegaly, no splenomegaly, no hernias and no masses Auscultation: normal bowel sounds Skin General skin exam: no rashes or lesions noted and dry skin Neuro General: patient oriented x3 Gait exam (Neuro): Normal gait present Motor exam (neuro): 5/5 motor strength present throughout and no tremor noted Extrem Right upper extremity: full ROM Left upper extremity: full ROM Right lower extremity: full ROM; no edema Left lower extremity: full ROM; no edema Psych Speech and movement: Normal speech and movement present Affect: normal affect Attitude: cooperative Assessment and Plan Assessment & Plan (1) Acute alcoholic gastritis: Code(s): K29.20 - Alcoholic gastritis without bleeding Qualifiers: Gastritis bleeding: without bleeding Qualified Code(s): K29.20 - Alcoholic gastritis without bleeding Plan: Continue f/u with GI as scheduled Continue taking medications as prescribed F/U with PCP PRN or as scheduled. Coding Level of Care Code Est Pt Level 3 (42164) Diagnoses Acute alcoholic gastritis without hemorrhage K29.20 Gastritis bleeding: without bleeding Time Spent (min) 15
== END 2024-03-25 14:25 | disposition home or self-care (01) ==
PROVIDERS: PCP Physician Assistant; Visit Provider Nurse Practitioner Family
DX: K29.20 Alcoholic gastritis without bleeding (principal)
CPT/HCPCS: 99213

== ENCOUNTER → 2024-03-28 13:12 | Outpatient (REF) | payer OTHER, SELFPAY ==
--- NOTE | ~2024-03-28 | NM_ITS ---
EXAMINATION: BILIARY TRACT IMAGING STUDY CLINICAL INDICATION: Right upper quadrant abdominal pain. Status post cholecystectomy 3 years ago. COMPARISON: Right upper quadrant abdominal ultrasound done on 04/28/[address] of the abdomen and pelvis done on 02/06/2024. TECHNIQUE: Scintillation camera images were obtained over the abdomen for an observation of 60 minutes following the intravenous administration of 5.0 millicuries technetium 99m mebrofenin. 4 hours delayed images were also obtained. FINDINGS: There is good concentration of activity in the liver by 5 minutes post injection. Biliary activity is well visualized by 10 minutes, and there is good visualization of small bowel activity by 15 minutes. The gallbladder remains nonvisualized throughout the entire study, consistent with history of cholecystectomy. There is no evidence of any biliary leak present. NM/NM hepatobiliary wo pharm IMPRESSION: 1. Nonvisualized gallbladder, consistent with provided history of cholecystectomy. 2. The common bile duct is patent. 3. Liver function appears normal. 4. No evidence of biliary leak.
== END ==
LOC: HO.NUCMED 13:12
PROVIDERS: PCP Physician Assistant; Visit Provider Nurse Practitioner Family
DX: R10.811 Right upper quadrant abdominal tenderness (principal)
CPT/HCPCS: 78226; A9537

== ENCOUNTER 2024-03-31 08:57 | Outpatient (AMB) | payer OTHER, SELFPAY ==
[2024-03-31 08:59] VITALS: BP 110/62; PULSE 72; O2SAT 98; BMI 30.2
--- NOTE | 2024-03-31 08:59 | MHC.PC.OV ---
Vital Signs 03/31/24 08:59 Height 5 ft 4 in Weight 176 lb BMI 30.2 BP 110/62 Blood Pressure Location Lt brachial Position Sitting Pulse 72 Pulse Source Pulse Oximeter Pulse Oximetry (%) 98 Oxygen Delivery Method Room Air Intake Visit Reasons: 4 Week F/U Allergies amoxicillin Allergy (Unknown, Verified 03/31/24 09:00) Rash amitriptyline Adverse Reaction (Intermediate, Verified 03/31/24 09:00) Fatigued trazodone Adverse Reaction (Intermediate, Verified 03/31/24 09:00) Anxiety Tobacco use date assessed: 12/28/23 Dental Screening Dental Screen Date: 12/28/23 HPI 4 Week F/U HPI Details Patient is a 28-year-old female here today for follow-up visit. At last visit we discussed her chronic abdominal pain and colitis. Was referred to GI and undergoing workup including a HIDA scan. Looks like her HIDA scan was essentially normal. She was been placed on famotidine along with her PPI therapy. She reports she still has abdominal pain intermittently. She would like a medication for her abdominal pain. 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 Anxiety: Has been a bit better since starting on SSRI therapy. [facility] Medical History Right hand paresthesia Nephrolithiasis Surgical History History of cholecystectomy Social History Household Members: None Housing: Apartment Do you presently have visiting nurse or other home services: No Alcohol intake: current Alcohol intake frequency: holidays/special occasions only Alcohol type: hard liquor Patient Tobacco Use Status: Never used Tobacco Tobacco use type: Cigarette e-Cigarette/Vaping Use: Never Used Second Hand Smoke Exposure: No Substance Use Type: Marijuana service: No Current occupational status: employed Current occupation: [employer] Cognitive needs: No Hearing needs: No Vision needs: No Questionnaire PHQ-9 Over the last 2 weeks, how often have you been bothered by any of the following problems? 1. Little interest or pleasure in doing things: not at all 2. Feeling down, depressed, or hopeless: not at all 3. Trouble falling or staying asleep, or sleeping too much: not at all 4. Feeling tired or having little energy: not at all 5. Poor appetite or overeating: several days 6. Feeling bad about yourself - or that you are a failure or have let yourself or your family down: not at all 7. Trouble concentrating on things, such as reading the newspaper or watching television: not at all 8. Moving or speaking so slowly that other people could have noticed. Or the opposite - being so fidgety or restless that you have been moving around a lot more than usual: not at all 9. Thoughts that you would be better off or of hurting yourself in some way: not at all Total score: 1 Depression Screening Interpretation: Negative Depression Screening Done: Yes 36723 - PHQ-9 Billing: Yes Source: Developed by Drs. Heri Armstrong, Delores Matamoros, Mauricio Keller and colleagues, with an educational christopher from [email or web address]. Thrive Questionnaire Date Thrive assessed: 02/07/24 AUDIT C Alcohol Use Questionnaire (AUDIT-C) 1. How often do you have a drink containing alcohol?: Monthly or less 2. How many drinks containing alcohol do you have on a typical day when you are drinking?: 1 or 2 Total Score: 1 RAZ-7 AMB Questionnaire RAZ-7 Date RAZ - 7 assessed: 03/31/24 Feeling nervous, anxious, or on edge: 1 = Several days Not being able to stop or control worryin = Not at all Worrying too much about different things: 1 = Several days Trouble relaxin = Not at all Being so restless that it is hard to sit still: 0 = Not at all Becoming easily annoyed or irritable: 1 = Several days Feeling afraid as if something awful might happen: 1 = Several days Total RAZ-7 score (0-4 normal; 5-9 mild; 10-14 moderate; 15-21 severe): 4 Source: Developed by Drs. Heri Armstrong, Delores Matamoros, Mauricio Keller and colleagues, with an educational christopher from [email or web address]. RAZ-7 Assessment Billing RAZ-7 Assessment Tool: RAZ-7 Assessment 71852 Review of Systems Const Denies headache(s) Eyes Denies loss of vision ENT Denies vertigo, Denies dizziness, Denies headache(s) and Denies sore throat Card Denies chest pain, Denies leg edema and Denies lightheadedness Resp Denies cough, Denies hemoptysis and Denies wheezing GI Reports abdominal pain, Denies melena, Denies constipation, Denies diarrhea and Denies vomiting Denies urinary frequency, Denies dysuria and Denies urinary urgency Musc Denies arthralgias, Denies joint swelling, Denies numbness and Denies tingling Neuro Denies Abnormal speech present, Denies behavioral changes, Denies vertigo, Denies dizziness, Denies headache(s), Denies loss of vision, Denies memory loss, Denies numbness and Denies tingling Psych Denies anxiety, Denies behavioral changes, Denies depression, Denies memory loss and Denies panic attacks Roger/Lymph Denies easy bleeding and Denies easy bruising Aller/Immun Denies wheezing Physical exam (Primary Care) Vital Signs: Last Vital Signs Pulse 72 03/31/24 08:59 BP 110/62 03/31/24 08:59 Pulse Ox 98 03/31/24 08:59 Oxygen Delivery Method Room Air 03/31/24 08:59 BMI result Body Mass Index 30.2 Tobacco/Smoking Status: Tobacco use Status Tobacco use date assessed 12/28/23 03/31/24 09:07 Patient Tobacco Use Status Never used Tobacco 03/31/24 09:07 Tobacco use type Cigarette 03/31/24 09:07 e-Cigarette/Vaping Use Never Used 03/31/24 09:07 Depression Screening Interpretation: Negative Thrive Assessment: Date of Thrive Assessment Date Thrive assessed 02/07/24 03/31/24 09:07 Const General: healthy appearing, no acute distress, alert and awake Nutritional Appearance: well nourished Orientation/consciousness: oriented to person, oriented to place and oriented to time HENMT Ears: TM's normal bilaterally General nose exam: Normal nasal mucous membranes and turbinates present Eyes Conjunctivae: conjunctivae normal Sclerae: sclerae normal Pupils: Equal, round and reactive pupils present Neck Neck: Yes no lymphadenopathy and Yes no JVD Thyroid: Thyroid normal Carotids: no bruits Resp Effort & Inspection: normal respiratory effort and not tachypneic Auscultation: no crackles, no rales, no rhonchi and no wheezes Cardio Rate: regular rate Rhythm: regular rhythm Heart sounds: no murmurs and normal S1 and S2 GI Palpation (GI): Soft to palpation, nontender, no hepatomegaly and no splenomegaly Auscultation: normal bowel sounds Skin General skin exam: no rashes or lesions noted and dry skin Neuro General: oriented to person, oriented to place and oriented to time Cranial nerves: Yes Equal, round and reactive pupils present Speech: No Abnormal speech present Gait exam (Neuro): Normal gait present Motor exam (neuro): no tremor noted Extrem Right upper extremity: full ROM Left upper extremity: full ROM Right lower extremity: full ROM; no edema Left lower extremity: full ROM; no edema Psych Mental Status: mental status grossly normal Speech and movement: Normal speech and movement present Affect: normal affect Attitude: cooperative Thought process: Normal thought process present Assessment and Plan Assessment & Plan (1) Abdominal pain: Code(s): R10.9 - Unspecified abdominal pain Qualifiers: Abdominal location: epigastric Qualified Code(s): R10.13 - Epigastric pain Plan: Reports having intermittent breakthrough abdominal pain even PPI therapy. She is asking for medication for abdominal pain. Will supply patient with dicyclomine for as needed use (2) Unknown varicella vaccination status: Code(s): Z78.9 - Other specified health status (3) GERD (gastroesophageal reflux disease): Code(s): K21.9 - Gastro-esophageal reflux disease without esophagitis Qualifiers: Esophagitis presence: esophagitis presence not specified Qualified Code(s): K21.9 - Gastro-esophageal reflux disease without esophagitis Plan: She has been started on pantoprazole which has been effective for her. She also reduced her alcohol intake, marijuana smoking and better eating habits which has also provided her some relief of her abdominal pains. (4) RAZ (generalized anxiety disorder): Comment: Moderate RAZ Code(s): F41.1 - Generalized anxiety disorder Plan: Patient's RAZ-7 score positive for anxiety which has been existing condition for her. Recently started SSRI therapy which has been somewhat effective for her. She has been anxious on anticipating starting new school at [employer] Orders: Orders T Spot TB Today Z11.1 - Encounter for screening for respiratory tuberculosis Varicella IgG Antibody Today Z78.9 - Other specified health status Hepatitis B,C Profile Today Z11.3 - Encounter for screening for infections with a predominantly sexual mode of transmission Medications: New dicyclomine 20 mg PO TID 90 tabs 0RF 30 days R10.9 - Unspecified abdominal pain, Z78.9 - Other specified health status Coding Level of Care Code Est Pt Level 4 (38446) Diagnoses Epigastric pain R10.13 Abdominal location: epigastric Unknown varicella vaccination status Z78.9 Gastroesophageal reflux disease, unspecified whether esophagitis present K21.9 Esophagitis presence: esophagitis presence not specified RAZ (generalized anxiety disorder) F41.1 Additional Codes RAZ-7 Assessment Billing - RAZ-7 Assessment Tool: RAZ-7 Assessment [id number] ([id number])
== END 2024-03-31 09:37 | disposition home or self-care (01) ==
PROVIDERS: PCP Physician Assistant; Visit Provider Physician Assistant
DX: R10.13 Epigastric pain (principal); Z78.9 Other specified health status; K21.9 Gastro-esophageal reflux disease without esophagitis; F41.1 Generalized anxiety disorder
CPT/HCPCS: 99214

== ENCOUNTER 2024-03-31 09:46 | Outpatient (REF) | payer OTHER, SELFPAY ==
[2024-03-31 11:46] LABS: HBS Num1 0.27 mIU/mL (0-7.99); HBc Num1 0.13 S/CO (0.00-0.79); HBsAGNum1 0.32 S/CO (0.00-0.99); Hepatitis B Core Antibody Nonreactive (Nonreactive); Hepatitis B Surface Antigen Negative (Negative); ~HepC Num1 2.24 S/CO (0.00-0.79); ~Hepatitis B Surface Antibody NONREACTIVE (Nonreactive); ~Hepatitis C Antibody Reactive (Nonreactive)
[2024-04-03 00:28] LABS: TS Negative Control Passed; TS Panel A 3; TS Panel B 3; TS Positive Control Passed; TSpotTB Negative (Negative)
== END 2024-03-31 09:47 | disposition home or self-care (01) ==
LOC: HO.LAB 09:46
PROVIDERS: Absent Provider Nurse Practitioner Family; PCP Physician Assistant; Visit Provider Physician Assistant
DX: Z11.1 Encounter for screening for respiratory tuberculosis (principal); Z78.9 Other specified health status; Z11.3 Encounter for screening for infections with a predominantly sexual mode of transmission
CPT/HCPCS: 36415; 86481; 86704; 86706; 86787; 86803; 87340

== ENCOUNTER 2024-04-04 14:54 | Outpatient (REF) | payer OTHER, SELFPAY ==
[2024-04-05 03:50] LABS: HBS Num1 0.49 mIU/mL (0-7.99); HBc Num1 0.16 S/CO (0.00-0.79); HBsAGNum1 0.25 S/CO (0.00-0.99); Hepatitis B Core Antibody Nonreactive (Nonreactive); Hepatitis B Surface Antigen Negative (Negative); ~HepC Num1 2.01 S/CO (0.00-0.79); ~Hepatitis A Antibody IgM Nonreactive (Nonreactive); ~Hepatitis B Surface Antibody NONREACTIVE (Nonreactive); ~Hepatitis C Antibody Reactive (Nonreactive)
[2024-04-06 09:13] LABS: HCV Log PCR <1.18 NOT DETECTED Log IU/mL (NOT DETECTED); HepC Viral Load <15 NOT DETECTED IU/mL (NOT DETECTED)
== END 2024-04-04 14:55 | disposition home or self-care (01) ==
LOC: HO.LAB 14:54
PROVIDERS: Nurse Practitioner Family; Absent Provider Nurse Practitioner Family; PCP Physician Assistant; Visit Provider Physician Assistant
DX: R76.8 Other specified abnormal immunological findings in serum (principal); R10.811 Right upper quadrant abdominal tenderness
CPT/HCPCS: 36415; 86704; 86706; 86709; 86803; 87340; 87522

== ENCOUNTER 2024-04-06 09:15 | Outpatient (REF) | payer OTHER, SELFPAY ==
[2024-04-06 16:47] LABS: Urine Cytology See Pathology rpt
== END 2024-04-06 09:16 | disposition home or self-care (01) ==
LOC: HO.LNP 09:15
PROVIDERS: PCP Physician Assistant; Visit Provider Nurse Practitioner Family
DX: N39.0 Urinary tract infection, site not specified (principal); N20.0 Calculus of kidney
CPT/HCPCS: 51798; 81003; 88112; 99202

== ENCOUNTER 2024-04-06 09:15 | Outpatient (AMB) | payer OTHER, SELFPAY ==
--- NOTE | 2024-04-06 09:16 | MHC.OFFVIS ---
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: No Accompanied by: Self / Same As Patient Allergies amoxicillin Allergy (Unknown, Verified 04/06/24 09:53) Rash amitriptyline Adverse Reaction (Intermediate, Verified 04/06/24 09:53) Fatigued trazodone Adverse Reaction (Intermediate, Verified 04/06/24 09:53) Anxiety Medication List - Last Reconciled 04/06/24 by NNEKA Turcios- albuterol sulfate 90 mcg/actuation 2 puffs inhalation Q6H PRN 30 days budesonide-formoterol 80-4.5 mcg/actuation (Symbicort) 2 puffs inhalation BID 30 days cholecalciferol (vitamin D3) 100 mcg (2 x 50 mcg (2,000 unit)) PO DAILY 90 days dicyclomine 20 mg PO TID 30 days famotidine (Pepcid) 20 mg PO BEDTIME ondansetron HCl 8 mg PO Q12H PRN 7 days pantoprazole 40 mg PO DAILY sertraline 50 mg PO DAILY HPI Comments Details: Thomas is a pleasant 28-year-old female patient of Dr. Hurd. She has a past medical history of nephrolithiasis. She presents to the office today as a new patient for nephrolithiasis and recurrent urinary tract infections. In discussion with the patient today she reports having seeked medical treatment at [facility] and [facility] ER services for ongoing stomach issues she has been experiencing. She reports to be following up with GI TANK CALIBRATOR Rhiannon here at [facility] for these exact issues. She reports she will soon be undergoing upper endoscopy as well as colonoscopy. In review of patient's chart it appears patient with previous imaging at [facility] that noted a 5 mm right renal stone however on most recent CT from 02/09 no nephrolithiasis noted. Patient reports noting ongoing lower urinary tract symptoms when having issues with her bowels. She reports she is undergoing further workup for potential IBS. In office urinalysis results reviewed with the patient today microscopic hematuria noted otherwise within normal limits. She reports currently being on her menses. She does however report smoking recreational marijuana from time to time. She currently denies any bothersome urinary issues or concerns. She denies any UTI like symptoms. She denies urinary urgency, urinary frequency, incontinence, nocturia, hematuria, dysuria, foul smelling urine, changes to urinary stream, flank pain, fever, and or chills. PVR 0ml's. In review of patient urine culture are as follows: 04/10 urine culture: Lactobacillus species 02/09 urine culture : No growth PFSH Medical History Right hand paresthesia Nephrolithiasis Surgical History History of cholecystectomy Social History Household Members: None Housing: Apartment Do you presently have visiting nurse or other home services: No Alcohol intake: current Alcohol intake frequency: holidays/special occasions only Alcohol type: hard liquor Patient Tobacco Use Status: Never used Tobacco Tobacco use type: Cigarette e-Cigarette/Vaping Use: Never Used Second Hand Smoke Exposure: No Substance Use Type: Marijuana service: No Current occupational status: employed Current occupation: [employer] Cognitive needs: No Hearing needs: No Vision needs: No Review of Systems Const All systems reviewed & are unremarkable except as noted in HPI and below Physical Exam Const General: cooperative, healthy appearing, comfortable, no acute distress, well developed, alert and awake Orientation/consciousness: patient oriented x3 Limitations: no limitations HEENT Head: Yes normal to inspection, Yes normocephalic and Yes atraumatic Ears: hearing grossly normal bilaterally Eyes General: appearance normal, both eyes and all related structures Neck Neck: Yes normal visual inspection and Yes trachea midline Chest Chest palpation & inspection: normal inspection of the chest Resp Effort & Inspection: normal respiratory effort and able to speak in complete sentences Cardio Rate: regular rate GI Inspection: Yes normal to inspection General: Yes no CVA tenderness Back/Spine/Pelvis Back: no CVA tenderness Skin General skin exam: no rashes or lesions noted Neuro General: patient oriented x3 Extrem General: Yes normal to inspection Psych Appearance: grossly normal and well kempt Mental Status: mental status grossly normal Speech and movement: Normal speech and movement present and Clear speech present Affect: normal affect Attitude: cooperative Thought process: Normal thought process present Thought content: Normal thought content present Insight: Fair insight present (Psych) Judgement: Fair judgement present (Psych) Office Procedures Post Void Residual Post Residual Void Post Void Residual (PVR): 0 [id number] Void Residual by ultrasound Results AMB Urinalysis, Automated UA Leukoctes 0 Erin/uL Last Edit by Channing Franco on 04/06/24 09:37 UA Nitrite Negative Last Edit by Channing Franco on 04/06/24 09:37 UA Urobilinogen 0.2 mg/dL Last Edit by Channing Franco on 04/06/24 09:37 UA Protein 15 mg/dL Last Edit by Vidablepriyank Chefmyron on 04/06/24 09:37 UA pH 5.5 Last Edit by Vidablepriyank Franco on 04/06/24 09:37 UA Blood 10 Gideon/uL Last Edit by Vidablepriyank Franco on 04/06/24 09:37 UA Specific Colbert 1.030 Last Edit by Vidablepriyank Franco on 04/06/24 09:37 UA Ketone Negative Last Edit by Vidablepriyank Franco on 04/06/24 09:37 UA Bilirubin 0 mg/dL Last Edit by Vidablepriyank Franco on 04/06/24 09:37 UA Glucose 0 mg/dL Last Edit by Vidablepriyank Franco on 04/06/24 09:37 Results Reviewed Results Reviewed: Laboratory Last Values Urine pH (Auto) 5.5 04/06/24 09:23 Specific Colbert (Auto) 1.030 04/06/24 09:23 Urine Protein (Auto) 15 mg/dL 04/06/24 09:23 Glucose (UA)(Auto) 0 mg/dL 04/06/24 09:23 Urine Ketones (Auto) Negative 04/06/24 09:23 Urine Blood (Auto) 10 Gideon/uL 04/06/24 09:23 Urine Nitrite (Auto) Negative 04/06/24 09:23 Urine Bilirubin (Auto) 0 mg/dL 04/06/24 09:23 Urine Urobilinogen (Auto) 0.2 mg/dL 04/06/24 09:23 Leukocyte Esterase (Auto) 0 Erin/uL 04/06/24 09:23 Date of Service: 02/06/24 EXAMINATION: CT ABDOMEN AND PELVIS WITH CONTRAST FINDINGS: LUNG BASES: The visualized lung bases are unremarkable. LIVER, GALLBLADDER, AND BILIARY TREE: The liver is normal in size, shape, and attenuation. No focal hepatic lesion or biliary ductal dilatation is present. The gallbladder has been removed. PANCREAS: Unremarkable. SPLEEN: Unremarkable. ADRENAL GLANDS: Unremarkable. KIDNEYS AND URETERS: The kidneys are normal in size, shape, and attenuation. No hydronephrosis, hydroureter, or calculi seen. No perinephric stranding. BLADDER: Unremarkable. GASTROINTESTINAL TRACT: Wall thickening and edema of the colon suggestive of colitis. No evidence of obstruction. Normal small bowel. The appendix is unremarkable. No ascites. ABDOMINAL WALL: No significant hernia is appreciated. LYMPH NODES: Normal. VASCULAR: Unremarkable. PELVIC VISCERA: Unremarkable. OSSEOUS STRUCTURES: Unremarkable. IMPRESSION: Colitis. Fleischner guidelines were followed. Assessment & Plan Assessment & Plan (1) Nephrolithiasis: Code(s): N20.0 - Calculus of kidney Category: Medical (2) Recurrent UTI: Code(s): N39.0 - Urinary tract infection, site not specified Category: Medical Plan In office urinalysis results reviewed with the patient today; as noted above. PVR [address] results reviewed with the patient today; as noted above. Discussed at length potential causes for nephrolithiasis as well as recurrent urinary tract infection. Discussed correlation of GI/bowel issues with recurrent urinary tract infections. Discussed, educated, and stressed the importance of adequate hydration. Patient currently denies any bothersome urinary issues or concerns. She reports be happy with current voiding parameters. Discussed UTI prevention with D mannose supplement, vitamin-C, increasing fluid intake, behavioral therapy with timed voiding, perineal hygiene and postcoital voiding, and management of constipation with stool softeners and increased fiber intake. Follow-up in 3 months with PVR; or sooner with any issues, concerns, and or questions. Orders: Orders AMB Urinalysis Automated Today Z13.9 - Encounter for screening, unspecified AMB Post Void Residual by ultrasound Today R30.0 - Dysuria Patient Instructions: The patient had an opportunity to ask questions regarding the treatment plan. All questions were answered. Physical exam, labs, and imaging were discussed and reviewed in detail. As well as risks, benefits, and discussion of treatment choices. No major barriers to understanding were identified. The patient expressed understanding and agreement with the above treatment plan. The patient was made aware they should contact our office by phone for worsening of their current condition, the appearance of new symptoms, or with any questions or concerns. Compliance is encouraged with any medications and follow up testing that is ordered. It is a privilege to be allowed the opportunity to participate in? your urological care.? Again, if you have any questions or concerns If you have any questions or concerns please do not hesitate to contact me. The office is [phone]. This note is constructed using voice recognition software. While every effort has been made to ensure accuracy industrial controller errors may have been included. Yours sincerely, NNEKA Turcios- Coding Level of Care Code New Pt Level 3 (70567) Diagnoses Nephrolithiasis N20.0 Recurrent UTI N39.0 CPT Codes Post Residual Void - PVR CPT Code: 66866-Bump Void Residual by ultrasound ([id number])
== END 2024-04-06 10:04 | disposition home or self-care (01) ==
LOC: HO.HUSH 09:15
PROVIDERS: PCP Physician Assistant; Visit Provider Nurse Practitioner Family
DX: N20.0 Calculus of kidney (principal); N39.0 Urinary tract infection, site not specified; Z13.9 Encounter for screening, unspecified
CPT/HCPCS: 99203

== ENCOUNTER 2024-07-29 10:11 | Outpatient (REF) | payer OTHER, SELFPAY ==
[2024-07-29 11:57] LABS: HBS Num1 273.33 mIU/mL (0-7.99); ~Hepatitis B Surface Antibody REACTIVE (Nonreactive)
== END 2024-07-29 10:12 | disposition home or self-care (01) ==
LOC: HO.LAB 10:11
PROVIDERS: PCP Physician Assistant; Visit Provider Physician Assistant
DX: Z78.9 Other specified health status (principal)
CPT/HCPCS: 36415; 86706

== ENCOUNTER → 2024-08-01 13:13 | Outpatient (BNVA) | payer SELFPAY | PROVIDERS: PCP Physician Assistant; Visit Provider Physician Assistant ==

== ENCOUNTER 2024-08-31 13:52 | Outpatient (AMB) | payer OTHER, SELFPAY ==
[2024-08-31 14:08] VITALS: BP 130/72; PULSE 82; O2SAT 99; BMI 29.9
--- NOTE | 2024-08-31 14:08 | A.OFFPC_ITS ---
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: No Accompanied by: Self / Same As Patient Allergies amoxicillin Allergy (Unknown, Verified 08/31/24 14:09) Rash amitriptyline Adverse Reaction (Intermediate, Verified 08/31/24 14:09) Fatigued trazodone Adverse Reaction (Intermediate, Verified 08/31/24 14:09) Anxiety Medication List - Last Reconciled 08/31/24 by Edilberto Hurd PA-C albuterol sulfate 90 mcg/actuation 2 puffs inhalation Q6H PRN 30 days budesonide-formoterol 80-4.5 mcg/actuation (Symbicort) 2 puffs inhalation BID 30 days cholecalciferol (vitamin D3) 100 mcg (2 x 50 mcg (2,000 unit)) PO DAILY 90 days dicyclomine 20 mg PO TID 30 days famotidine (Pepcid) 20 mg PO BEDTIME ondansetron HCl 8 mg PO Q12H PRN 7 days pantoprazole 40 mg PO DAILY sertraline 50 mg PO DAILY Tobacco use date assessed: 12/28/23 Dental Screening Dental Screen Date: 12/28/23 HPI 4M f/u HPI Details Patient is a 28-year-old female here today for follow-up visit. Patient's past medical history significant for gastritis, anxiety and depression. GERD: Continues with pantoprazole and dicyclomine with good effect. She does report when she goes out drinking her GI symptoms get worse. She try to reach out to her GI specialty for follow-up Anxiety: Has been a bit better since starting on SSRI therapy. Overweight: Patient's BMI today at 29.9. She has struggled to lose weight even with better eating habits and physical activity. She is interested in oral medication to help her with weight loss. Will follow- up with her in 1 month to see if she has benefited from medication. [facility] Medical History Right hand paresthesia Nephrolithiasis Surgical History History of cholecystectomy Social History Household Members: None Housing: Apartment Do you presently have visiting nurse or other home services: No Alcohol intake: current Alcohol intake frequency: holidays/special occasions only Alcohol type: hard liquor Patient Tobacco Use Status: Never used Tobacco Tobacco use type: Cigarette e-Cigarette/Vaping Use: Never Used Second Hand Smoke Exposure: No Substance Use Type: Marijuana service: No Current occupational status: employed Current occupation: [employer] Cognitive needs: No Hearing needs: No Vision needs: No Questionnaire Thrive Questionnaire Date Thrive assessed: 02/07/24 RAZ-7 AMB Questionnaire RAZ-7 Date RAZ - 7 assessed: 03/31/24 Source: Developed by Drs. Heri Armstrong, Delores Matamoros, Mauricio Keller and colleagues, with an educational christopher from [employer]. Review of Systems Const Denies headache(s) Eyes Denies loss of vision ENT Denies vertigo, Denies dizziness, Denies headache(s) and Denies sore throat Card Denies chest pain, Denies leg edema and Denies lightheadedness Resp Denies cough, Denies hemoptysis and Denies wheezing GI Denies abdominal pain, Denies melena, Denies constipation, Denies diarrhea and Denies vomiting Denies urinary frequency, Denies dysuria and Denies urinary urgency Musc Denies arthralgias, Denies joint swelling, Denies numbness and Denies tingling Neuro Denies Abnormal speech present, Denies behavioral changes, Denies vertigo, Denies dizziness, Denies headache(s), Denies loss of vision, Denies memory loss, Denies numbness and Denies tingling Psych Denies anxiety, Denies behavioral changes, Denies depression, Denies memory loss and Denies panic attacks Roger/Lymph Denies easy bleeding and Denies easy bruising Aller/Immun Denies wheezing Physical exam (Primary Care) Vital Signs: Last Vital Signs Pulse 82 08/31/24 14:08 BP 130/72 08/31/24 14:08 Pulse Ox 99 08/31/24 14:08 Oxygen Delivery Method Room Air 08/31/24 14:08 BMI result Body Mass Index 29.9 Tobacco/Smoking Status: Tobacco use Status Tobacco use date assessed 12/28/23 03/31/24 09:07 Patient Tobacco Use Status Never used Tobacco 03/31/24 09:07 Tobacco use type Cigarette 03/31/24 09:07 e-Cigarette/Vaping Use Never Used 03/31/24 09:07 Thrive Assessment: Date of Thrive Assessment Date Thrive assessed 02/07/24 03/31/24 09:07 Const General: healthy appearing, no acute distress, alert and awake Nutritional Appearance: well nourished Orientation/consciousness: oriented to person, oriented to place and oriented to time HENMT Ears: TM's normal bilaterally General nose exam: Normal nasal mucous membranes and turbinates present Eyes Conjunctivae: conjunctivae normal Sclerae: sclerae normal Pupils: Equal, round and reactive pupils present Neck Neck: Yes no lymphadenopathy and Yes no JVD Thyroid: Thyroid normal Carotids: no bruits Resp Effort & Inspection: normal respiratory effort and not tachypneic Auscultation: no crackles, no rales, no rhonchi and no wheezes Cardio Rate: regular rate Rhythm: regular rhythm Heart sounds: no murmurs and normal S1 and S2 GI Palpation (GI): Soft to palpation, nontender, no hepatomegaly and no splenomegaly Auscultation: normal bowel sounds Skin General skin exam: no rashes or lesions noted and dry skin Neuro General: oriented to person, oriented to place and oriented to time Cranial nerves: Yes Equal, round and reactive pupils present Speech: No Abnormal speech present Gait exam (Neuro): Normal gait present Motor exam (neuro): no tremor noted Extrem Right upper extremity: full ROM Left upper extremity: full ROM Right lower extremity: full ROM; no edema Left lower extremity: full ROM; no edema Psych Mental Status: mental status grossly normal Speech and movement: Normal speech and movement present Affect: normal affect Attitude: cooperative Thought process: Normal thought process present Coding Level of Care Code Est Pt Level 4 (57918) Diagnoses Gastroesophageal reflux disease, unspecified whether esophagitis present K21.9 Esophagitis presence: esophagitis presence not specified Flexural eczema L20.82 Eczema type: flexural BMI 29.0-29.9,adult Z68.29 Fluid level behind tympanic membrane of right ear H65.91 Assessment & Plan Assessment & Plan (1) GERD (gastroesophageal reflux disease): Code(s): K21.9 - Gastro-esophageal reflux disease without esophagitis Category: Medical Qualifiers: Esophagitis presence: esophagitis presence not specified Qualified Code(s): K21.9 - Gastro-esophageal reflux disease without esophagitis Plan: Patient's GERD symptoms has been better since medication though still does have flares in her gastritis when she drinks alcohol. She will be reaching out to her straw hat presser for further workup and a possible endoscopy colonoscopy. (2) Eczema: Code(s): L30.9 - Dermatitis, unspecified Category: Medical Qualifiers: Eczema type: flexural Qualified Code(s): L20.82 - Flexural eczema Plan: Patient reports she has had eczema flares recently. Will supply patient with triamcinolone cream to use on affected skin areas. (3) BMI 29.0-29.9,adult: Code(s): Z68.29 - Body mass index [BMI] 29.0-29.9, adult Category: Medical Plan: As per HPI patient has been having difficulty losing weight. She is willing to try phentermine for short term to help kick start weight loss. (4) Fluid level behind tympanic membrane of right ear: Code(s): H65.91 - Unspecified nonsuppurative otitis media, right ear Category: Medical Plan: Patient does air-fluid levels on her right tympanic membrane. Advised on the use of allergy medication and nasal spray. Medications: New fluticasone propionate 50 mcg/actuation (Flonase Allergy Relief) administer into each nostril 1 spray intranasal BID 30 days 16 grams 0RF H65.91 - Unspecified nonsuppurative otitis media, right ear triamcinolone acetonide 0.1% 1 appl topical DAILY 30 days 30 grams 0RF L30.9 - Dermatitis, unspecified phentermine must administer 30 minutes before or 1-2 hours after breakfast 37.5 mg PO DAILY 28 days 28 caps 0RF Z68.29 - Body mass index [BMI] 29.0-29.9, adult loratadine 10 mg PO DAILY 30 days 30 tabs 2RF H65.91 - Unspecified nonsuppurative otitis media, right ear Changed From pantoprazole 40 mg PO DAILY K21.9 - Gastro-esophageal reflux disease without esophagitis To pantoprazole 40 mg PO DAILY 30 days 30 tabs 3RF K21.9 - Gastro-esophageal reflux disease without esophagitis Refilled albuterol sulfate 90 mcg/actuation 2 puffs inhalation Q6H 30 days PRN 8.5 grams 6RF shortness of breath or wheezing J45.909 - Unspecified asthma, uncomplicated budesonide-formoterol 80-4.5 mcg/actuation (Symbicort) 2 puffs inhalation BID 30 days 10.2 grams 6RF J45.909 - Unspecified asthma, uncomplicated
== END 2024-08-31 14:29 | disposition home or self-care (01) ==
PROVIDERS: PCP Physician Assistant; Visit Provider Physician Assistant
DX: K21.9 Gastro-esophageal reflux disease without esophagitis (principal); L20.82 Flexural eczema; Z68.29 Body mass index [BMI] 29.0-29.9, adult; H65.91 Unspecified nonsuppurative otitis media, right ear

== ENCOUNTER → 2024-08-31 13:52 | Outpatient (BNVA) | payer OTHER, SELFPAY | PROVIDERS: PCP Physician Assistant; Visit Provider Physician Assistant | DX: K21.9 Gastro-esophageal reflux disease without esophagitis (principal); L20.82 Flexural eczema; H65.91 Unspecified nonsuppurative otitis media, right ear | CPT/HCPCS: 99212 ==

== ENCOUNTER 2024-12-29 14:06 | Outpatient (AMB) | payer OTHER, SELFPAY ==
--- NOTE | 2024-12-29 14:12 | A.OFFPC_ITS ---
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 Accompanied by: Self / Same As Patient Allergies amoxicillin Allergy (Unknown, Verified 12/29/24 14:20) Rash amitriptyline Adverse Reaction (Intermediate, Verified 12/29/24 14:20) Fatigued trazodone Adverse Reaction (Intermediate, Verified 12/29/24 14:20) Anxiety Medication List - Last Reconciled 12/29/24 by Edilberto Hurd PA-C albuterol sulfate 90 mcg/actuation 2 puffs inhalation Q6H PRN 30 days azelastine 1 spray intranasal BID 90 days budesonide-formoterol 80-4.5 mcg/actuation (Symbicort) 2 puffs inhalation BID 30 days cholecalciferol (vitamin D3) 100 mcg (2 x 50 mcg (2,000 unit)) PO DAILY 90 days dicyclomine 20 mg PO TID 30 days fluticasone propionate 50 mcg/actuation (Flonase Allergy Relief) 1 spray intranasal BID 30 days loratadine 10 mg PO DAILY 30 days ondansetron HCl 8 mg PO Q12H PRN 7 days pantoprazole 40 mg PO DAILY 30 days phentermine 37.5 mg PO DAILY 28 days triamcinolone acetonide 0.1% 1 appl topical DAILY 30 days Tobacco use date assessed: 12/29/24 Dental Screening Dental Screen Date: 12/29/24 Did you have a dental visit in the last 12 months?: Yes Did you have a dental problem in the last 6 months where you did not have access to dental care?: No Was dental information given to patient?: Patient has dentist HPI Annual exam HPI Details Patient is a 29-year-old female here today for a routine annual physical. Patient's past medical history significant for gastritis, anxiety and depression. -Concern--> reports she has developed da rk skin lines over the posterior aspect of her right leg. She is concerned about this as she will be getting a tattoo in that area. She otherwise denies any lumps or pain to palpation in the area. GERD: Continues with pantoprazole and dicyclomine with good effect. She does report when she goes out drinking her GI symptoms get worse. Anxiety: Has been a bit better since starting on SSRI therapy. No longer takes SSRI therapy .. Colitis: Has been a bit better since she has stopped drinking alcohol. She denies any diarrhea. She still has abdominal pain from time to time she does have pending stool testing workup . She reports she will call to reestablish care with [facility] Overweight: Patient has been using phentermine and has been able to lose 10 lb since last office visit. Today's BMI at 28.3 from 29.9. 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 [facility]- and gets PAP Vaccines: Up-to-date with COVID vaccine, flu vaccine, pneumonia and tetanus vaccines [facility] Medical History Right hand paresthesia Nephrolithiasis Surgical History History of cholecystectomy Social History (Updated 12/29/24 @ 14:26 by Edilberto Hurd PA-C) Household Members: None Housing: Apartment Do you presently have visiting nurse or other home services: No Alcohol intake: current Alcohol intake frequency: holidays/special occasions only Alcohol type: hard liquor Patient Tobacco Use Status: Never used Tobacco Tobacco use type: Cigarette e-Cigarette/Vaping Use: Never Used Second Hand Smoke Exposure: No Substance Use Type: Marijuana service: No Current occupational status: employed Current occupation: J[employer]- [employer] Cognitive needs: No Hearing needs: No Vision needs: No Questionnaire PHQ-9 Over the last 2 weeks, how often have you been bothered by any of the following problems? 1. Little interest or pleasure in doing things: not at all 2. Feeling down, depressed, or hopeless: not at all 3. Trouble falling or staying asleep, or sleeping too much: several days 4. Feeling tired or having little energy: several days 5. Poor appetite or overeating: not at all 6. Feeling bad about yourself - or that you are a failure or have let yourself or your family down: not at all 7. Trouble concentrating on things, such as reading the newspaper or watching television: not at all 8. Moving or speaking so slowly that other people could have noticed. Or the opposite - being so fidgety or restless that you have been moving around a lot more than usual: not at all 9. Thoughts that you would be better off or of hurting yourself in some way: not at all Total score: 2 Depression Screening Interpretation: Negative Depression Screening Done: Yes 36784 - PHQ-9 Billing: Yes Source: Developed by Drs. Heri Armstrong, Delores Matamoros, Mauricio Keller and colleagues, with an educational christopher from [employer]. Thrive Questionnaire Date Thrive assessed: 12/29/24 I am a: Patient What is your living situation today?: I have a steady place to live Within the past 12 months, did the food you bought not last and you didn't have the money to get more?: Sometimes True Within the past 12 months, did you worry whether your food would run out before you got money to buy more?: Never true Do you have trouble paying for medicines?: No Do you have trouble getting transportation to medical appointments?: No Do you have trouble paying your heating and electricity bill?: No Do you have trouble taking care of your child, family member or friend?: No Do you have trouble with day-to-day activities such as bathing, preparing meals, shopping, managing finances, etc.?: No Are you currently unemployed and looking for a job?: No Are you interested in more education?: No Please select the resources that you would like help with: None Currently or been in a relationship where the following occur: No concerns reported THRIVE Score: 1 AUDIT C Alcohol Use Questionnaire (AUDIT-C) 1. How often do you have a drink containing alcohol?: Monthly or less 2. How many drinks containing alcohol do you have on a typical day when you are drinking?: 1 or 2 3. How often do you have six or more drinks on one occasion?: Never Total Score: 1 RAZ-7 AMB Questionnaire RAZ-7 Date RAZ - 7 assessed: 12/29/24 Feeling nervous, anxious, or on edge: 0 = Not at all Not being able to stop or control worryin = Not at all Worrying too much about different things: 0 = Not at all Trouble relaxin = Not at all Being so restless that it is hard to sit still: 0 = Not at all Becoming easily annoyed or irritable: 0 = Not at all Feeling afraid as if something awful might happen: 0 = Not at all Total RAZ-7 score (0-4 normal; 5-9 mild; 10-14 moderate; 15-21 severe): 0 Source: Developed by Drs. Heri Armstrong, Delores Matamoros, Mauricio Keller and colleagues, with an educational christopher from [employer]. RAZ-7 Assessment Billing RAZ-7 Assessment Tool: RAZ-7 Assessment 79622 ACT Questionnaire In the past 4 weeks, how much of the time did your asthma keep you from getting as much done at work, school or at home?: None of the time During the past 4 weeks, how often have you had shortness of breath?: Not at all During the past 4 weeks, how often did your asthma symptoms wake you up at night or earlier than usual in the morning?: Not at all During the past 4 weeks, how often have you had to use your rescue inhaler or nebulizer medication?: Not at all How would you rate your asthma control during the past 4 weeks?: Completely controlled ACT Interpretation: Negative Score: 25 Review of Systems Const Denies body aches, Denies chills, Denies excessive sweating, Denies fatigue, Denies fever(s) and Denies headache(s) Eyes Denies blurry vision ENT Denies dysphagia, Denies vertigo, Denies dizziness, Denies headache(s), Denies hearing loss and Denies tinnitus Card Denies chest pain, Denies chest pain with activity, Denies syncope, Denies irregular heart rhythm and Denies dyspnea Resp Denies chest congestion, Denies cough, Denies hemoptysis, Denies dyspnea and Denies wheezing GI Denies abdominal pain, Denies melena, Denies hematochezia, Denies coffee ground emesis, Denies dysphagia, Denies diarrhea, Denies nausea and Denies vomiting Denies urinary frequency, Denies dysuria, Denies urinary hesitancy and Denies urinary urgency Musc Denies arthralgias, Denies limited range of motion, Denies muscle cramps and Denies muscle weakness Skin/Breast Denies rash and Denies skin ulcer Neuro Denies Abnormal speech present, Denies confusion, Denies vertigo, Denies dizziness, Denies syncope, Denies headache(s), Denies memory loss and Denies seizure-like activity Psych Denies anxiety, Denies confusion, Denies depression, Denies memory loss, Denies panic attacks and Denies paranoia Endo Denies excessive sweating, Denies fatigue, Denies flushing, Denies polydipsia and Denies polyuria Aller/Immun Denies wheezing Physical exam (Primary Care) Vital Signs: Last Vital Signs BP 126/80 12/29/24 14:14 BMI result Body Mass Index 28.3 Tobacco/Smoking Status: Tobacco use Status Tobacco use date assessed 12/29/24 12/29/24 14:17 Patient Tobacco Use Status Never used Tobacco 12/29/24 14:26 Tobacco use type Cigarette 12/29/24 14:26 e-Cigarette/Vaping Use Never Used 12/29/24 14:26 PHQ-9: PHQ-9 Score PHQ-9: Total score 2 12/29/24 15:43 Depression Screening Interpretation: Negative Thrive Assessment: Date of Thrive Assessment Date Thrive assessed 12/29/24 12/29/24 14:17 Currently or been in a relationship where the following occur: No concerns reported Const General: cooperative, comfortable, no acute distress, alert and awake; No confusion Orientation/consciousness: oriented to person, oriented to place, patient oriented x3 and No confusion HENMT Head: Yes normocephalic Ears: external ears normal and TM's normal bilaterally Face and sinus: No sinus tenderness Mouth: Normal oral and palatal mucosa present and tongue normal Teeth and gingiva: dentition normal and gingiva normal Throat: Yes posterior oropharynx normal, Yes tonsils normal and Yes uvula midline Eyes Conjunctivae: conjunctivae normal Sclerae: sclerae normal Pupils: Equal, round and reactive pupils present EOM: EOMs intact bilaterally Direct Ophthalmoscopy: No no photophobia Neck Neck: Yes no lymphadenopathy, No tender and Yes no JVD Thyroid: Thyroid normal Carotids: no bruits Chest Chest palpation & inspection: no tenderness Resp Effort & Inspection: normal respiratory effort, no audible wheezes, not labored and no stridor Auscultation: no crackles, no rales, no rhonchi and no wheezes Cardio Jugular venous distension: no JVD Rate: regular rate, not bradycardic and not tachycardic Rhythm: regular rhythm Bruits: no carotid bruits Peripheral pulses: Peripheral pulses 2+ throughout GI Inspection: Yes normal to inspection, No abdominal wall ecchymosis and No visible herniation Palpation (GI): Soft to palpation, nontender, no guarding, not rigid and No hepatosplenomegaly present Auscultation: normoactive bowel sounds General: Yes no CVA tenderness Back/Spine/Pelvis Back: no CVA tenderness and No back tenderness Cervical Spine: cervical ROM normal Thoracic/Lumbar Spine: thoracic and lumbar spine normal to inspection, straight leg raise negative bilaterally, No thoraco-lumbar ROM limited and No lumbar spinal tenderness Skin Lesions: no lesions Rashes: no rashes Wounds: no wounds Neuro General: oriented to person, oriented to place, patient oriented x3, CN's II-XI intact bilaterally and No confusion Cranial nerves: Yes Equal, round and reactive pupils present and Yes Normal accommodation reflex present Cognition (Neuro): normal cognition Speech: No Abnormal speech present Gait exam (Neuro): Normal gait present Motor exam (neuro): 5/5 motor strength present throughout Extrem Right upper extremity: full ROM; no cyanosis Left upper extremity: full ROM; no cyanosis Right lower extremity: no edema Left lower extremity: no edema Psych Appearance: grossly normal Mental Status: mental status grossly normal Affect: normal affect Attitude: cooperative Thought process: Normal thought process present Coding Level of Care Code Est Pt Prev Care [id number]([id number]) Diagnoses Annual physical exam Z00.00 Varicose veins of right lower leg I83.91 MDD (major depressive disorder), recurrent episode, moderate F33.1 Colitis K52.9 Moderate asthma without complication, unspecified whether persistent J45.909 Asthma severity: moderate Asthma persistence: unspecified Asthma complication type: uncomplicated Additional Codes RAZ-7 Assessment Billing - RAZ-7 Assessment Tool: RAZ-7 Assessment 53278 ([id number]) PHQ-9 - 94406 - PHQ-9 Billing: Yes ([id number]) Asthma Control Questionnaire - ACT Interpretation: Negative ([id number]) Assessment & Plan Assessment & Plan (1) Annual physical exam: Code(s): Z00.00 - Encounter for general adult medical examination without abnormal findings Category: Medical Plan: As per HPI (2) Varicose veins of right lower leg: Code(s): I83.91 - Asymptomatic varicose veins of right lower extremity Category: Medical Plan: Patient is skin presentation appears to be vascular as it is serpentine in appearance. Will send for vascular ultrasound to evaluate (3) MDD (major depressive disorder), recurrent episode, moderate: Code(s): F33.1 - Major depressive disorder, recurrent, moderate Category: Medical Plan: Patient's PHQ-9 score 2, she does have a history of depression. She is not taking SSRI therapy at this time . She feels her mental health is fairly well stable. She does use marijuana on a daily basis which helps her mental health. (4) Colitis: Code(s): K52.9 - Noninfective gastroenteritis and colitis, unspecified Category: Medical Plan: Has a history of colitis though has been fairly well controlled with diet and reducing alcohol intake. She still has abdominal pain and cramping from time to time and will follow up with Gastroenterology. She does have stool test pending . (5) Asthma: Code(s): J45.909 - Unspecified asthma, uncomplicated Category: Medical Qualifiers: Asthma severity: moderate Asthma persistence: unspecified Asthma complication type: uncomplicated Qualified Code(s): J45.909 - Unspecified asthma, uncomplicated Plan: Patient reports her asthma has been fairly well controlled. Only seldomly using her albuterol inhaler. She denies any nighttime awakenings with asthma symptoms or recent asthma exacerbations. Orders: Orders Comprehensive [facility]. Panel Fast 12/29/24 Z13.1 - Encounter for screening for diabetes mellitus Complete Blood Count no Diff 12/29/24 K21.9 - Gastro-esophageal reflux disease without esophagitis Vitamin D 25-OH Total 12/29/24 E55.9 - Vitamin D deficiency, unspecified US venous duplex LE RT 12/29/24 I83.91 - Asymptomatic varicose veins of right lower extremity Medications: Refilled albuterol sulfate 90 mcg/actuation 2 puffs inhalation Q6H PRN 8.5 grams 6RF shortness of breath or wheezing 30 days J45.909 - Unspecified asthma, uncomplicated budesonide-formoterol 80-4.5 mcg/actuation (Symbicort) 2 puffs inhalation BID 10.2 grams 6RF 30 days J45.909 - Unspecified asthma, uncomplicated
[2024-12-29 14:14] VITALS: BP 126/80; BMI 28.3
--- OUTSIDE RECORDS SUMMARY | 2024-12-29 17:57 | XMS_ITS | Clinical Summary ---
Author Organization [facility] Address [address] [place] [address] Care Team Providers Care Manager Statistical Programming Name Role Phone Unavailable Primary Care Provider Unavailabl e Social History Tobacco Use Types Packs/Day Years Used Date Smoking Tobacco: Never Assessed Comments Unknown Sex and Gender Information Value Date Recorded Sex Assigned at Not on file Legal Sex Female 12:13 AM EST Gender Identity Not on file Sexual Orientation Not on file Plan of Treatment Health Maintenance Due Date Last Done Comments DTaP,Tdap,and Td Vaccines (1 - Tdap) 2014 Hepatitis B Vaccines (1 of 3 - 19+ 3-dose series) 2014 Cervical Cancer Screening: P ap Smear 2016 Depression Screening 09/21/2022 HIV Screening 09/21/2022 Hepatitis C Screening 09/21/2022 Social Influencers of Health Screening 09/21/2022 COVID-19 Vaccine ( - 2023-2 5 season) 2024 Influenza Vaccine (#1) 2024 HIB Vaccines Aged Out No longer eligi ble based on patient's age to complete this topic HPV Vaccines Aged Out No longer eligi ble based on patient's age to complete this topic Hepatitis A Vaccines Aged Out No long er eligible based on patient's age to complete this topic IPV Vaccines Aged Out No longer eligi ble based on patient's age to complete this topic MMR Vaccines Aged Out No longer eligi ble based on patient's age to complete this topic Meningococcal ACWY Vaccine Aged Out N o longer eligible based on patient's age to complete this topic Meningococcal B Vacine Aged Out No lo nger eligible based on patient's age to complete this topic Pneumococcal Vaccine: Pediat rics (0 to 5 Years) and At-Risk Patients (6 to 64 Years) Aged Out No longer eligible b ased on patient's age to complete this topic RSV Immunization Patients Un marly 20 months Aged Out No longer eligible b ased on patient's age to complete this topic Varicella Vaccines Aged Out No longer eligible based on patient's age to complete this topic
--- OUTSIDE RECORDS SUMMARY | 2024-12-29 17:57 | XMS_ITS | Data Portability ---
Author Organization [facility], [address] Address [address] [place] [address] Care Team Providers Care Outside Sales Associate Name Role Phone ALIRIO CISNEROS Primary Care Provider [phone] Assessment No assessment recorded. Plan of Treatment Reminders Order Date Submit Date Provider Last Modified By Organization Details Last Modified Time Details Appointments None recorded. Lab urinalysis , dipstick 2022 023 [place] [address] [facility], [address] [place] [address], [address], 18:22:16 test, urine 2022 023 [place] [address] _[facility], [address] [place] [address], [address], 18:22:16 Referral None recorded. Procedures None recorded. Surgeries None recorded. Imaging None recorded. Medication Orders meclizine 25 mg tablet 2022 023 [place] [address] [id number], [phone] [place], [address], 3 19:37:30 Patient TargetsNo targets recorded. Patient Instructions Encounter Date Encounter Id Patient Instructions Last Modified By Organization Details Last Modified Time 03/19/2023 [id number] vertigo: care instructions [place] [id number] Not available 03/19/2023 18:22:16 Reason for Referral None Reported. Results Created Date Observation Date Name Description Value Unit Range Abnormal Flag Note LastModifiedBy Organization Detail LastModifiedTime 06/11/07 2203/19/2023 urina lysis , dipst ick Unknown Analyte Normal = light yellow Not Available 2099gloria rahman [address], [place], [address], 03/19/2023 17:43:56 03/19/20 23 03/19/2023 urina lysis , dipst ick Unknown Analyte Light Yellow Not Available 2099gloria rahman [address], [place], [address], 03/19/2023 17:43:56 03/19/20 23 03/19/2023 urina lysis , dipst ick Unknown Analyte Normal = clear Not Available 2099gloria rahman [address], [place], [address], 03/19/2023 17:43:56 03/19/20 23 03/19/2023 urina lysis , dipst ick Unknown Analyte Clear Not Available [address] [place], [place] [address]kt [address], [place], [address], 03/19/2023 17:43:56 03/19/2003/19/2023 urina lysis , dipst ick Unknown Analyte Normal = negati ve Not Available gloria rahman [address], [place], [address], 03/19/2023 17:43:56 03/19/2003/19/2023 urina lysis , dipst ick Unknown Analyte Negati ve Not Available 2099gloria rahman [address], [place], [address], 03/19/2023 17:43:56 03/19/20 23 03/19/2023 urina lysis , dipst ick Unknown Analyte Normal = Negati ve Not Available 2099gloria rahman [address], [place], [address], 03/19/2023 17:43:56 03/19/20 23 03/19/2023 urina lysis , dipst ick Unknown Analyte Negati ve Not Available gloria rahman [address], [place], [address], 03/19/2023 17:43:56 03/19/20 23 03/19/2023 urina lysis , dipst ick Unknown Analyte Normal = Negati ve Not Available 2099gloria rahman [address], [place], [address], 03/19/2023 17:43:56 03/19/20 23 03/19/2023 urina lysis , dipst ick Unknown Analyte Negati ve Not Available gloria rahman [address], [place], [address], 03/19/2023 17:43:56 03/19/20 23 03/19/2023 urina lysis , dipst ick Unknown Analyte Normal = 1.010, 1.015, 1.020 Not Available gloria [address], [place], [address], 03/19/2023 17:43:56 03/19/20 23 03/19/2023 urina lysis , dipst ick Unknown Analyte 1.020 Not Available [address], [place], [place], [address], 03/19/2023 17:43:56 03/19/20 23 03/19/2023 urina lysis , dipst ick Unknown Analyte Normal = Negati ve Not Available 2099gloria rahman [address], [place], [place], [address], 03/19/2023 17:43:56 03/19/20 23 03/19/2023 urina lysis , dipst ick Unknown Analyte Negati ve Not Available gloria [address], [place], [address], 03/19/2023 17:43:56 03/19/20 23 03/19/2023 urina lysis , dipst ick Unknown Analyte Normal = 6.5, 7.0, 7.5, 8.0 Not Available [facility] [address], [place], [address], 03/19/2023 17:43:56 03/19/20 23 03/19/2023 urina lysis , dipst ick Unknown Analyte 6.5 Not Available [address] [place] [address], [place], [address], 03/19/2023 17:43:56 03/19/20 23 03/19/2023 urina lysis , dipst ick Unknown Analyte Normal = Negati ve Not Available [address] [place] [address], [place], [address], 03/19/2023 17:43:56 03/19/20 23 03/19/2023 urina lysis , dipst ick Unknown Analyte Negati ve Not Available [address] [place] [address], [place], [address], 03/19/2023 17:43:56 03/19/20 23 03/19/2023 urina lysis , dipst ick Unknown Analyte Normal = 0.2, 1.0 Not Available [address], [place], [address], 03/19/2023 17:43:56 03/19/20 23 03/19/2023 urina lysis , dipst ick Unknown Analyte 0.2 E.U./d L Not Available [address] [place] [address], [place], [address], 03/19/2023 17:43:56 03/19/2003/19/2023 urina lysis , dipst ick Unknown Analyte Normal = Negati ve Not Available 2099gloria rahman [address], [place], [address], 03/19/2023 17:43:56 03/19/20 23 03/19/2023 urina lysis , dipst ick Unknown Analyte Negati ve Not Available [address] [place] [address], [place], [address], 03/19/2023 17:43:56 03/19/20 23 03/19/2023 urina lysis , dipst ick Unknown Analyte Normal = Negati ve Not Available [facility] [address], [place], [address], 03/19/2023 17:43:56 03/19/20 23 03/19/2023 urina lysis , dipst ick Unknown Analyte Negati ve Not Available [address] [place] [address], [place], [address], 03/19/2023 17:43:56 03/19/20 23 03/19/2023 pregn eusebio test, urine Unknown Analyte Normal = Negati ve Not Available [address] [place] [address], [place], [address], 03/19/2023 17:44:02 03/19/20 23 03/19/2023 pregn eusebio test, urine Unknown Analyte negati ve Not Available [address] [place] [address], [place], [address], 03/19/2023 17:44:02 Result Notes None recorded. Problems Name Problem SNOMED Code Status Onset Date Resolution Date Notes Provider Name and Address Organization Details Recorded Time Asthma 691537003 Active 023 TITI Thibodeaux - [facility] 03/19/2023 17:46:30 Problem Notes None recorded. Medical Equipment None Reported. Allergies Allergen ID Allergen Name Allergen Category Reaction Reaction Severity Criticality Documentation Date Start Date Code Code System Note Provider Name and Address Organization Details Recorded Time 556538 amoxicill in medicatio n Not available Not available Not available 03/19/2023 723 RxNorm Candis Rae angelika PA - [facility] 17:44:32 412392 Toradol medicatio n Not available Not available Not available 03/19/2023 93580 RxNorm Candis Rae angelika PA - [facility] 17:44:37 Medications Name Sig Start Date Stop Date Status Note LastModified by Organization Details LastModified Time meclizine 25 mg tablet Take 1 tablet 3 times a day by oral route for 5 days. 2022 active Not Available Not Available Not Avai lable Symbicort active Not Available Not Savi ilable Not Available albuterol 90 mcg-budeson [place] 80 mcg/actuati on HFA aerosol inhaler Inhale by inhalation route. active Not Available Not Available No t Available Vitals Date Recorded Body height Body mass index (BMI) Body weight Pain severity - 0-10 verbal numeric rating [Score] - Reported Respiratory rate Oxygen saturation Oxygen saturation in Arterial blood by Pulse oximetry Heart rate Body temperature Systolic blood pressure Diastolic blood pressure Provider Name and Address Organization Details Last Updated DateTime 3 162.56 cm 28.8 kg/m2 37740.5 2 g 0 18 /min 100 % 100 % 81 /min 98.2 [degF] 118 mm[Hg] 75 mm[Hg] Candis Whiteshanthialecia PA - [facility] 17:48:38 Social History Question Answer Notes LastModified by Organizat ion Details LastModified Time Tobacco Smoking Status Never Smoker Canids Whiteleon carney PA Geoff [facility] 03/19/2023 17:47:08 What Is Your Level Of Alcohol Consumption? Occasional Information not available 03/19/2023 How Many Times Per Week Do You Consume Alcohol? 1-2 Times Per Week Information not available 03/19/2023 Which Illicit Or Recreational Drugs Have You Used? Marijuana Information not available 03/19/2023 Do You Use Any Illicit Or Recreational Drugs? Yes Information not available 03/19/2023 Have You Recently Traveled Abroad? No Information not available 03/19/2023 Do You Or Have You Ever Used Any Other Forms Of Tobacco Or Nicotine? No Information not available 03/19/2023 Sex: Unknown Functional Status None recorded. Mental Status None recorded. Family History Relationship Description Onset Age of this Age Resolved Age Notes LastModified by Organization Details LastModified Time Father Asthma [email or web address] Not available 03/19/2023 17:46:42 Sister Lupus erythematosu s [email or web address] Not available 2022 17:46:52 Mother Kidney disease [email or web address] Not available 2022 17:47:02 Medical History No medical history recorded. Gynecological History Statement/Question Response Date of LMP 03/09/2023 Is there any chance of ? No Obstetrics History GPAL:G 0 P 0 0 0 0 Past Encounters Encounter ID Performer Location Encounter Start Date Encounter Closed Date Diagnosis/Indication Diagnosis SNOMED-CT Code Diagnosis ICD10 Code Diagnosis Note [id number] [address] [address] [address] 08/04/2017 12:38:00 08/04/2017 14:15:02 [id number] Christine López [place] [address] [address] [address] 03/19/2023 17:18:05 03/19/2023 18:24:46 Dizziness 510661767 R42 There is fluid in middle ear which ca cause dizziness. If the dizziness continues you will need to follow up with PCP , ENT or go to ER if worsens Abdominal pain 92879042 R10.9 If this pain worsens you wlil need to return to the ER for further evaluation Health Concerns Section Related Observation LastModified by Organization Detai ls LastModified Time None Recorded Concern Status LastModified by Organization Details LastModified Time None Recorded Advance Directives Directive None Recorded Payers Encounter Date Sequence Insurance Name Policy Number Policy Salcido Covered Member ID Salcido Member ID Guarantor Name 03/19/2023 1 [facility] - HE[facility] NET PLAN (MEDICAID HMO) BABITA Fuller [id number] Thomas Fuller Notes Date Note Type Note Provider Name and Address Organization Details Recorded Time 03/19/2023 text/html Abdominal PainReported bypatient.Location: [facility] Quality:sharp Severity:moderate Onset/Timing:wax/wa ne Context:history of kidney stones Modifying Factors:eating Associated Symptoms:no fever; no chills; no shortness of breath; no change in bowel/bladder habits;nausea;vomit ing Other:denies possible pregnancyNotes:ER visit 2 days ago, no scans doneDizziness UCReported bypatient.Quality:c annot identify Severity:cant support self when standing Associated Symptoms:no blurred vision; no double vision; no eye pain; no hearing loss; no ear discharge; no ringing in the ears; no pressure in ears; no noise in the ears; no earache; no headache; no head pressure;nausea;vom itingNotes:runny nose Christine López MD [address] [place], [place] [address]ress [place], [address], PA - [facility] 03/19/2023 19:40:08 OBGyn Episode No OBEpisode recorded.
== END 2024-12-29 14:37 | disposition home or self-care (01) ==
LOC: HO.HMCH 14:07
PROVIDERS: PCP Physician Assistant; Visit Provider Physician Assistant
DX: Z00.00 Encounter for general adult medical examination without abnormal findings (principal); I83.91 Asymptomatic varicose veins of right lower extremity; F33.1 Major depressive disorder, recurrent, moderate; K52.9 Noninfective gastroenteritis and colitis, unspecified; J45.909 Unspecified asthma, uncomplicated

== ENCOUNTER → 2024-12-29 14:06 | Outpatient (BNVA) | payer OTHER, SELFPAY | PROVIDERS: PCP Physician Assistant; Visit Provider Physician Assistant | DX: Z00.00 Encounter for general adult medical examination without abnormal findings (principal); I83.91 Asymptomatic varicose veins of right lower extremity; F33.1 Major depressive disorder, recurrent, moderate; K52.9 Noninfective gastroenteritis and colitis, unspecified; J45.909 Unspecified asthma, uncomplicated | CPT/HCPCS: 96127; 96160; 99395 ==

== ENCOUNTER 2025-01-24 08:37 | Outpatient (REF) | payer OTHER, SELFPAY ==
--- NOTE | ~2025-01-24 | US_ITS ---
EXAMINATION: US LOWER EXTREMITY VENOUS (REFLUX EXAM), RIGHT LOWER EXTREMITY. CLINICAL INFORMATION: Varices. COMPARISON: None. TECHNIQUE: Color flow triplex imaging and compression Doppler was performed to evaluate both the deep and the superficial systems right lower extremity. To evaluate the superficial system, the examination was performed in the upright position. Color-flow Doppler ultrasound and compression ultrasound were utilized. In addition, maneuvers were utilized to demonstrate reflux. FINDINGS: 1. DEEP VENOUS ULTRASOUND OF THE RIGHT LOWER EXTREMITY: Common Femoral Vein: Compressible, normal respiratory variation and augmented flow. Femoral Vein: Compressible, normal color flow and augmentation. Popliteal Vein: Compressible, normal augmentation. Deep Reflux: There is no evidence of reflux in the deep system in either the common femoral vein, superficial femoral or the popliteal vein. There is no evidence of a Orellana's cyst. 2. SUPERFICIAL ULTRASOUND WITH DOPPLER OF RIGHT LOWER EXTREMITY: GREAT SAPHENOUS VEIN: Saphenofemoral Junction: 0.6 cm; Reflux: 0 ms Proximal Thigh: 0.5 cm; Reflux: 0 ms Mid Thigh: 0.4 cm; Reflux: 0 ms Distal Thigh: 0.5 cm; Reflux: 0 ms At Knee: 0.4 cm; Reflux: 0 ms Proximal Calf: 0.3 cm; Reflux: 756 ms Mid Calf: 0.3 cm; Reflux: 0 ms Distal Calf: 0.3 cm; Reflux: 0 ms DUPLICATED MEDIAL GREAT SAPHENOUS VEIN: Diameter: None imaged Reflux: NA DUPLICATED LATERAL GREAT SAPHENOUS VEIN: Diameter: 0.2-0.4 cm. Reflux: NA SMALL SAPHENOUS VEIN: Saphenopopliteal Junction: 0.2 cm; Reflux: 0 ms Proximal: 0.1 cm; Reflux: 0 ms Distal: 0.2 cm; Reflux: 0 ms VEIN OF GIACOMINI: Size: NA Reflux: NA PERFORATORS: Location: Mid calf. Size: 0.1 cm. Reflux: NA VARICOSITIES: Location: None imaged. Size: NA Reflux: NA US/US venous duplex LE RT IMPRESSION: Right: Venous insufficiency, great saphenous vein just below the knee. Perforators without reflux in the mid calf. Electronically signed by: Jerome Salguero MD 01/24/2025 11:47 AM EDT
--- OUTSIDE RECORDS SUMMARY | 2025-01-24 09:02 | XMS_ITS | Data Portability ---
Author Organization [facility], [address] Address [address] [place] [address] Care Team Providers Care Mis Director Name Role Phone ALIRIO CISNEROS Primary Care Provider [phone] Assessment No assessment recorded. Plan of Treatment Reminders Order Date Submit Date Provider Last Modified By Organization Details Last Modified Time Details Appointments None recorded. Lab urinalysis , dipstick 2022 023 [place] [address] _[facility], [address] [place] [address], [address], 18:22:16 test, urine 2022 023 [place] [address] _[facility], [address] [place] [address], [address], 18:22:16 Referral None recorded. Procedures None recorded. Surgeries None recorded. Imaging None recorded. Medication Orders meclizine 25 mg tablet 2022 023 [place] [address] [id number], [phone] [place], [address], 3 19:37:30 Patient TargetsNo targets recorded. Patient Instructions Encounter Date Encounter Id Patient Instructions Last Modified By Organization Details Last Modified Time 03/19/2023 [id number] vertigo: care instructions [place] [id number] Not available 03/19/2023 18:22:16 Reason for Referral None Reported. Results Created Date Observation Date Name Description Value Unit Range Abnormal Flag Note LastModifiedBy Organization Detail LastModifiedTime 06/11/07 2203/19/2023 urina lysis , dipst ick Unknown Analyte Normal = light yellow Not Available 2099gloria rahman [address], [place], [address], 03/19/2023 17:43:56 03/19/20 23 03/19/2023 urina lysis , dipst ick Unknown Analyte Light Yellow Not Available 2099gloria rahman [address], [place], [address], 03/19/2023 17:43:56 03/19/20 23 03/19/2023 urina lysis , dipst ick Unknown Analyte Normal = clear Not Available 2099gloria rahman [address], [place], [address], 03/19/2023 17:43:56 03/19/20 23 03/19/2023 urina lysis , dipst ick Unknown Analyte Clear Not Available [address] [place], [place] [address] [address], [place], [address], 03/19/2023 17:43:56 03/19/2003/19/2023 urina lysis , dipst ick Unknown Analyte Normal = negati ve Not Available gloria rahman [address], [place], [address], 03/19/2023 17:43:56 03/19/2003/19/2023 urina lysis , dipst ick Unknown Analyte Negati ve Not Available 2099gloria rahman [address], [place], [address], 03/19/2023 17:43:56 03/19/20 23 03/19/2023 urina lysis , dipst ick Unknown Analyte Normal = Negati ve Not Available 2099gloria rahman [address], [place], [address], 03/19/2023 17:43:56 03/19/20 23 03/19/2023 urina lysis , dipst ick Unknown Analyte Negati ve Not Available gloria rahman [address], [place], [address], 03/19/2023 17:43:56 03/19/20 23 03/19/2023 urina lysis , dipst ick Unknown Analyte Normal = Negati ve Not Available 2099gloria rahman [address], [place], [address], 03/19/2023 17:43:56 03/19/20 23 03/19/2023 urina lysis , dipst ick Unknown Analyte Negati ve Not Available gloria rahman [address], [place], [address], 03/19/2023 17:43:56 03/19/20 23 03/19/2023 urina lysis , dipst ick Unknown Analyte Normal = 1.010, 1.015, 1.020 Not Available gloria [address], [place], [address], 03/19/2023 17:43:56 03/19/20 23 03/19/2023 urina lysis , dipst ick Unknown Analyte 1.020 Not Available [address], [place], [place], [address], 03/19/2023 17:43:56 03/19/20 23 03/19/2023 urina lysis , dipst ick Unknown Analyte Normal = Negati ve Not Available 2099gloria rahman [address], [place], [place], [address], 03/19/2023 17:43:56 03/19/20 23 03/19/2023 urina lysis , dipst ick Unknown Analyte Negati ve Not Available gloria [address], [place], [address], 03/19/2023 17:43:56 03/19/20 23 03/19/2023 urina lysis , dipst ick Unknown Analyte Normal = 6.5, 7.0, 7.5, 8.0 Not Available [facility] [address], [place], [address], 03/19/2023 17:43:56 03/19/20 23 03/19/2023 urina lysis , dipst ick Unknown Analyte 6.5 Not Available [address] [place] [address], [place], [address], 03/19/2023 17:43:56 03/19/20 23 03/19/2023 urina lysis , dipst ick Unknown Analyte Normal = Negati ve Not Available [address] [place] [address], [place], [address], 03/19/2023 17:43:56 03/19/20 23 03/19/2023 urina lysis , dipst ick Unknown Analyte Negati ve Not Available [address] [place] [address], [place], [address], 03/19/2023 17:43:56 03/19/20 23 03/19/2023 urina lysis , dipst ick Unknown Analyte Normal = 0.2, 1.0 Not Available [address], [place], [address], 03/19/2023 17:43:56 03/19/20 23 03/19/2023 urina lysis , dipst ick Unknown Analyte 0.2 E.U./d L Not Available [address] [place] [address], [place], [address], 03/19/2023 17:43:56 03/19/2003/19/2023 urina lysis , dipst ick Unknown Analyte Normal = Negati ve Not Available 2099gloria rahman [address], [place], [address], 03/19/2023 17:43:56 03/19/20 23 03/19/2023 urina lysis , dipst ick Unknown Analyte Negati ve Not Available [address] [place] [address], [place], [address], 03/19/2023 17:43:56 03/19/20 23 03/19/2023 urina lysis , dipst ick Unknown Analyte Normal = Negati ve Not Available [facility] [address], [place], [address], 03/19/2023 17:43:56 03/19/20 23 03/19/2023 urina lysis , dipst ick Unknown Analyte Negati ve Not Available [address] [place] [address], [place], [address], 03/19/2023 17:43:56 03/19/20 23 03/19/2023 pregn eusebio test, urine Unknown Analyte Normal = Negati ve Not Available [address] [place] [address], [place], [address], 03/19/2023 17:44:02 03/19/20 23 03/19/2023 pregn eusebio test, urine Unknown Analyte negati ve Not Available [address] [place] [address], [place], [address], 03/19/2023 17:44:02 Result Notes None recorded. Problems Name Problem SNOMED Code Status Onset Date Resolution Date Notes Provider Name and Address Organization Details Recorded Time Asthma 661692012 Active 023 TITI Thibodeaux - [facility] 03/19/2023 17:46:30 Problem Notes None recorded. Medical Equipment None Reported. Allergies Allergen ID Allergen Name Allergen Category Reaction Reaction Severity Criticality Documentation Date Start Date Code Code System Note Provider Name and Address Organization Details Recorded Time 992583 amoxicill in medicatio n Not available Not available Not available 03/19/2023 723 RxNorm Candis Rae angelika PA - [facility] 17:44:32 381088 Toradol medicatio n Not available Not available Not available 03/19/2023 58390 RxNorm Candis Rae angelika [facility] - [facility] [...] Updated DateTime 3 162.56 cm 28.8 kg/m2 27725.5 2 g 0 18 /min 100 % 100 % 81 /min 98.2 [degF] 118 mm[Hg] 75 mm[Hg] Candis Whiteshanthialecia PA - [facility] 17:48:38 Social History Question Answer Notes LastModified by Organizat ion Details LastModified Time Tobacco Smoking Status Never Smoker Candis Whiteleon carney PA Geoff [facility] 03/19/2023 [...] SNOMED-CT Code Diagnosis ICD10 Code Diagnosis Note [id number] [address] [address] [address] 08/04/2017 12:38:00 08/04/2017 14:15:02 [id number] Christine López MD [address] [address] 03/19/2023 17:18:05 03/19/2023 18:24:46 Dizziness 820870660 R42 There is fluid in middle ear which ca cause dizziness. If the dizziness continues you will need to follow up with PCP , ENT or go to ER if worsens Abdominal pain 80298333 R10.9 If this pain worsens you wlil [...] Salcido Member ID Guarantor Name 03/19/2023 1 [facility] - HEALTH NET PLAN (MEDICAID HMO) BABITA Fuller [id number] Thomas Fuller Notes Date Note Type Note Provider Name and Address Organization Details Recorded Time 03/19/2023 text/html Abdominal PainReported bypatient.Location: [facility] Quality:sharp Severity:moderate Onset/Timing:wax/wa ne Context:history of kidney [...] head pressure;nausea;vom itingNotes:runny nose Christine López MD [address] [place], [place] [address]ress [place], [address], PA - [facility] 03/19/2023 19:40:08 OBGyn Episode No OBEpisode recorded.
--- OUTSIDE RECORDS SUMMARY | 2025-01-24 09:02 | XMS_ITS | Clinical Summary ---
Author Organization [address] Address [address] [place] [address] Phone Care Team Providers Care Red Hat Open Stack Administrator Name Role Phone Edilberto Hurd Primary Care Provider [phone] Encounters Date Type Department Care Team Description 01/09/2025 Lab Requisition [facility] - Main Lab [address] [facility] [place] [address] sp [employer] Ob-Corporate Services Manager Encounter for screening for infections with a predominantly sexual mode of transmission from Last 3 Months Social History Tobacco Use Types Packs/Day Years Used Date Smoking Tobacco: Never Assessed Comments Unknown Sex and Gender Information Value Date Recorded Sex Assigned at Not on file Legal Sex Female 12:13 AM EST Gender Identity Not on file Sexual Orientation Not on file Plan of Treatment Health Maintenance Due Date Last Done Comments Cervical Cancer Screening: Pap Smear 2016 Pneumococcal Vaccine: Pediatrics (0 to 5 Years) and At-Risk Patients (6 to 64 Years) (2 of 2 - PCV) 08/29/2020 08/29/2019, 10/29/2016 Depression Screening 09/21/2022 Social Influencers of Health Screening 09/21/2022 COVID-19 Vaccine ( season) 2024 03/03/2021, 02/10/2021 DTaP,Tdap,and Td Vaccines (7 - Td or Tdap) 01/06/2032 01/05/2022, 10/29/2016, 10/03/2000, Additional history exists HIB Vaccines Completed 09/23/1996, 03/19, 01/18/1996, Additional history exists IPV Vaccines Completed 10/20/2007, 11/19, 09/23/1996, Additional history exists HPV Vaccines Completed 06/15/2009, 08/19, 10/20/2007 MMR Vaccines Completed 09/12/2013, 11/19, 09/23/1996 Varicella Vaccines Aged Out 09/12/2013 No longer eligible based on patient's age to complete this topic Hepatitis A Vaccines Aged Out 10/24/2015, 10/02/20 14 No longer eligible based on patient's age to complete this topic Meningococcal ACWY Vaccine Aged Out 10/24/2015, No longer eligible based on patient's age to complete this topic Hepatitis B Vaccines Completed 05/22/2024, 04/09/2024, 01/22/2023, Additional history exists Influenza Vaccine Completed 08/16/2024, , 08/08/2021, Additional history exists HIV Screening Completed 01/09/2025 Hepatitis C Screening Completed 01/09/2025 Meningococcal B Vaccine Aged Out No l onger eligible based on patient's age to complete this topic RSV Immunization Patients Under 20 months Aged Out No longer eligible based on patient's age to complete this topic Procedures Procedure Name Priority Date/Time Associated Diagnosis Comments TREPONEMA PALLIDUM ANTIBODY WITH REFLEX TO RPR AND PARTICLE AGGLUTINATION Routine 01/09/2025 12:00 AM EDT STD exposure HIV 1, 2 ANTIBODY, P24 ANTIGEN WITH REFLEX TO DIFFERENTIATION Routine 01/09/2025 12:00 AM EDT STD exposure HEPATITIS C ANTIBODY Routine 01/09/2025 12:00 AM EDT STD exposure CHLAMYDIA TRACHOMATIS AND NEISSERIA GONORRHOEAE PCR Routine 01/09/2025 12:00 AM EDT Encounter for screening for infections with a predominantly sexual mode of transmission from Last 3 Months Results * Hepatitis C antibody (01/09/2025 12:00 AM EDT) Hepatitis C Antibody Negative Negative LAB CHEMISTRY METHOD 01/09/2025 5:25 PM EDT [facility] Blood Venous blood specimen / Unknown 01/09/2025 01/09/2025 3:29 PM EDT us Felisha Peck MD LAB BLOOD ORDERABLES Fin al Result Performing Organization Address [facility]/ZIP Co de Phone Number [facility] [address] [place] [address], [place] [phone] * HIV 1,2 antibody, p24 antigen with reflex to differentiation (01/09/2025 12:00 AM EDT) HIV Combo AB/AG Negative Negative LAB CHEMISTRY METHOD 01/09/2025 5:26 PM EDT [facility] Blood Venous blood specimen / Unknown 01/09/2025 01/09/2025 3:29 PM EDT Narrative [facility] - 01/09/2025 5:26 PM EDT This assay is a 4th generation assay allowing for earlier detection of HIV infection by detecting the presence of the HIV-1 p24 antigen as well as the traditional antibodies to HIV type 1 (including group O) and type 2. ??Use of a 4th generation assay is the current CDC recommendation for HIV screening. us Felisha Peck MD LAB BLOOD ORDERABLES Fin al Result Performing Organization Address [facility] Co de Phone Number [facility] [address] [place] [address], [place] [phone] * Treponema pallidum antibody with reflex to RPR and particle agglutination (01/09/2025 12:00 AM EDT) T. Pallidum Antibodies Negative Negative LAB CHEMISTRY METHOD 01/09/2025 5:45 PM EDT [facility] Blood Venous blood specimen / Unknown 01/09/2025 01/09/2025 3:29 PM EDT us Felisha Peck MD LAB BLOOD ORDERABLES Fin al Result Performing Organization Address City/[facility]/ZIP Co de Phone Number [facility] [address] [place] [address], * Chlamydia trachomatis and Neisseria gonorrhoeae molecular study (01/09/2025 12:00 AM EDT) Neisseria gonorrhoeae PCR Negative Negative LAB MOLECULAR DIAGNOSTICS METHOD 01/10/2025 2:25 PM EDT [facility] Chlamydia trachomatis PCR Negative Negative LAB MOLECULAR DIAGNOSTICS METHOD 01/10/2025 2:25 PM EDT [facility] Swab Cervix uteri structure / Unknown 01/09/2025 01/09/2025 6:09 PM EDT us [employer] O b-Corporate Services Manager [facility] LAB MICROBIOLOGY - GENERAL ORDERABLES Final Result Performing Organization Address [facility] Co de Phone Number [facility] [address] [place] [address], [place] [phone] from Last 3 Months Insurance [facility] Care Teams [employer] Open Stack Administrator Relationship Specialty Start Date End Date Edilberto Hurd PA [facility] [place] [address] PCP - General Physician Marble Mason 01/09/25
--- OUTSIDE RECORDS SUMMARY | 2025-01-24 09:02 | XMS_ITS | Encounter Summary ---
Author Organization [facility] Address [address] [place] [address] Care Team Providers Care Video Conference Specialist Name Role Phone Edilberto Hurd Primary Care Provider Encounter Details Date Type Department Care Team (Latest Contact Info) Description 01/09/2025 Lab Requisition [facility] - Main Lab [address] [place] [address] [facility] [employer] Ob-Clinical Rehabilitation Aide Encounter for screening for infections with a predominantly sexual mode of transmission Social History Tobacco Use Types Packs/Day Years Used Date Smoking Tobacco: Never Assessed Comments Unknown Sex and Gender Information Value Date Recorded Sex Assigned at Not on file Legal Sex Female 12:13 AM EST Gender Identity Not on file Sexual Orientation Not on file documented as of this encounter Plan of Treatment Not on file documented as of this encounter Procedures Procedure Name Priority Date/Time Associated Diagnosis Comments CHLAMYDIA TRACHOMATIS AND NEISSERIA GONORRHOEAE PCR Routine 01/09/2025 12:00 AM EDT Encounter for screening for infections with a predominantly sexual mode of transmission documented in this encounter Results * Chlamydia trachomatis and Neisseria gonorrhoeae molecular study (01/09/2025 12:00 AM EDT) Neisseria gonorrhoeae PCR Negative Negative LAB MOLECULAR DIAGNOSTICS METHOD 01/10/2025 2:25 PM EDT [facility] Chlamydia trachomatis PCR Negative Negative LAB MOLECULAR DIAGNOSTICS METHOD 01/10/2025 2:25 PM EDT [facility] Swab Cervix uteri structure / Unknown 01/09/2025 01/09/2025 6:09 PM EDT us [employer] O b-Clinical Rehabilitation Aide [facility] LAB MICROBIOLOGY - GENERAL ORDERABLES Final Result [facility] [address] [place] [address], documented in this encounter Visit Diagnoses Diagnosis Encounter for screening for infections with a predominantly sexual mode of transmission documented in this encounter Care Teams Video Conference Specialist Relationship Specialty Start Date End Date Edilberto Hurd PA [address] [place] [phone] PCP - General Physician Geospatial Image Analyst 01/09/25 documented as of this encounter
== END 2025-01-24 08:38 | disposition home or self-care (01) ==
LOC: HO.US 08:37
PROVIDERS: PCP Physician Assistant; Visit Provider Physician Assistant
DX: I83.91 Asymptomatic varicose veins of right lower extremity (principal)
CPT/HCPCS: 93971

== ENCOUNTER → 2025-01-24 08:41 | Outpatient (BNV) | payer OTHER, SELFPAY | PROVIDERS: PCP Physician Assistant; Visit Provider Radiology Diagnostic Radiology | DX: I87.2 Venous insufficiency (chronic) (peripheral) (principal) | CPT/HCPCS: 93971 ==

== ENCOUNTER 2025-07-03 15:06 | Outpatient (AMB) | payer OTHER, SELFPAY ==
--- NOTE | 2025-07-03 15:10 | MHC.PC.OV ---
Vital Signs 07/03/25 15:11 Height 5 ft 4 in Weight 164 lb 2 oz BMI 28.2 BP 130/60 Blood Pressure Location Lt brachial Position Sitting Pulse 74 Pulse Source Pulse Oximeter Temp 97.3 F Temp Source Temporal Artery Scan Pulse Oximetry (%) 98 Oxygen Delivery Method Room Air Intake Visit Reasons: f/u GERD/ Intake Note: Patient is here to follow up on GERD. Cloth Tester Quality Required: No Phlebotomy Services Technician: Not Required per policy Accompanied by: Self / Same As Patient Allergies amoxicillin Allergy (Unknown, Verified 07/03/25 15:26) Rash amitriptyline Adverse Reaction (Intermediate, Verified 07/03/25 15:26) Fatigued trazodone Adverse Reaction (Intermediate, Verified 07/03/25 15:26) Anxiety Medication List - Last Reconciled 07/03/25 by Edilberto Hurd PA-C acetaminophen 1,000 mg PO Q6H PRN albuterol sulfate 90 mcg/actuation 2 puffs inhalation Q6H PRN 30 days aspirin 162 mg PO DAILY budesonide-formoterol 80-4.5 mcg/actuation (Symbicort) 2 puffs inhalation BID 30 days cholecalciferol (vitamin D3) 100 mcg (2 x 50 mcg (2,000 unit)) PO DAILY 90 days clonidine HCl 0.1 mg PO BID 30 days famotidine 20 mg PO BEDTIME 30 days ondansetron HCl 8 mg PO Q12H 15 days vit no.[id number] 28 mg iron- 800 mcg (Classic ) 1 tab PO DAILY pyridoxine (vitamin B6) 50 mg PO DAILY triamcinolone acetonide 0.1% 1 appl topical DAILY 30 days Tobacco use date assessed: 07/03/25 Dental Screening Dental Screen Date: 12/29/24 HPI f/u GERD/ HPI Details Patient is a 29-year-old female here today for a follow-up visit Patient's past medical history significant for gastritis, anxiety and depression. -Concern--> Sixteen week gestation: She is currently four months and recently had a gender reveal, expecting a girl. The father is not involved, but she has a supportive family, particularly her mother, and friends. The patient reports taking Tylenol for headaches and is on baby aspirin due to a higher risk of preeclampsia. She is also taking clonidine, famotidine, Unisom, vitamin D3, vitamin B6, sulfasalazine, and vitamins. She has a history of anemia and is undergoing testing to monitor her iron levels, as she is anemic and there is a concern for alpha thalassemia. She was hospitalized twice due to severe nausea and vomiting early in the , resulting in a weight loss of approximately 12 pounds. The patient experiences Raynaud's phenomenon, with breast pain exacerbated by cold weather. She has been advised to use hand warmers and aids to manage symptoms. She reports a history of anxiety, which she manages with support from her family and friends. She has ceased marijuana use since discovering her to ensure a healthy gestation. GERD: Continues with pantoprazole and dicyclomine with good effect. She does report when she goes out drinking her GI symptoms get worse. Anxiety: Currently , not taking any SSRIs. Still use his clonidine . Overweight: Patient has been using phentermine and has been able to lose 10 lb since last office visit. Today's BMI at 28.3 from 29.9. [facility] Medical History Right hand paresthesia Nephrolithiasis Surgical History History of cholecystectomy Social History Household Members: None Housing: Apartment Do you presently have visiting nurse or other home services: No Alcohol intake: current Alcohol intake frequency: holidays/special occasions only Alcohol type: hard liquor Patient Tobacco Use Status: Never used Tobacco Tobacco use type: Cigarette e-Cigarette/Vaping Use: Never Used Second Hand Smoke Exposure: No Substance Use Type: Marijuana service: No Current occupational status: employed Current occupation: [employer] Cognitive needs: No Hearing needs: No Vision needs: No Questionnaire Thrive Questionnaire Date Thrive assessed: 12/29/24 I am a: Patient What is your living situation today?: I have a steady place to live Within the past 12 months, did the food you bought not last and you didn't have the money to get more?: Sometimes True Within the past 12 months, did you worry whether your food would run out before you got money to buy more?: Never true Do you have trouble paying for medicines?: No Do you have trouble getting transportation to medical appointments?: No Do you have trouble paying your heating and electricity bill?: No Do you have trouble taking care of your child, family member or friend?: No Do you have trouble with day-to-day activities such as bathing, preparing meals, shopping, managing finances, etc.?: No Are you currently unemployed and looking for a job?: No Are you interested in more education?: No Please select the resources that you would like help with: None Currently or been in a relationship where the following occur: No concerns reported THRIVE Score: 1 RAZ-7 AMB Questionnaire RAZ-7 Date RAZ - 7 assessed: 12/29/24 Source: Developed by Drs. Heri Armstrong, Delores Matamoros, Mauricio Keller and colleagues, with an educational christopher from [employer]. Review of Systems Const Denies headache(s) Eyes Denies loss of vision ENT Denies vertigo, Denies dizziness, Denies headache(s) and Denies sore throat Card Denies chest pain, Denies leg edema and Denies lightheadedness Resp Denies cough, Denies hemoptysis and Denies wheezing GI Denies abdominal pain, Denies melena, Denies constipation, Denies diarrhea and Denies vomiting Denies urinary frequency, Denies dysuria and Denies urinary urgency Musc Denies arthralgias, Denies joint swelling, Denies numbness and Denies tingling Neuro Denies Abnormal speech present, Denies behavioral changes, Denies vertigo, Denies dizziness, Denies headache(s), Denies loss of vision, Denies memory loss, Denies numbness and Denies tingling Psych Denies anxiety, Denies behavioral changes, Denies depression, Denies memory loss and Denies panic attacks Roger/Lymph Denies easy bleeding and Denies easy bruising Aller/Immun Denies wheezing Physical exam (Primary Care) Vital Signs: Last Vital Signs Temp 97.3 F 07/03/25 15:11 Pulse 74 07/03/25 15:11 BP 130/60 07/03/25 15:11 Pulse Ox 98 07/03/25 15:11 Oxygen Delivery Method Room Air 07/03/25 15:11 BMI result Body Mass Index 28.2 Tobacco/Smoking Status: Tobacco use Status Tobacco use date assessed 07/03/25 07/03/25 15:19 Patient Tobacco Use Status Never used Tobacco 07/03/25 15:19 Tobacco use type Cigarette 07/03/25 15:19 e-Cigarette/Vaping Use Never Used 07/03/25 15:19 Thrive Assessment: Date of Thrive Assessment Date Thrive assessed 12/29/24 07/03/25 15:19 Currently or been in a relationship where the following occur: No concerns reported Const General: healthy appearing, no acute distress, alert and awake Nutritional Appearance: well nourished Orientation/consciousness: oriented to person, oriented to place and oriented to time HENMT Ears: TM's normal bilaterally General nose exam: Normal nasal mucous membranes and turbinates present Eyes Conjunctivae: conjunctivae normal Sclerae: sclerae normal Pupils: Equal, round and reactive pupils present Neck Neck: Yes no lymphadenopathy and Yes no JVD Thyroid: Thyroid normal Carotids: no bruits Resp Effort & Inspection: normal respiratory effort and not tachypneic Auscultation: no crackles, no rales, no rhonchi and no wheezes Cardio Rate: regular rate Rhythm: regular rhythm Heart sounds: no murmurs and normal S1 and S2 GI Palpation (GI): Soft to palpation, nontender, no hepatomegaly and no splenomegaly Auscultation: normal bowel sounds Skin General skin exam: no rashes or lesions noted and dry skin Neuro General: oriented to person, oriented to place and oriented to time Cranial nerves: Yes Equal, round and reactive pupils present Speech: No Abnormal speech present Gait exam (Neuro): Normal gait present Motor exam (neuro): no tremor noted Extrem Right upper extremity: full ROM Left upper extremity: full ROM Right lower extremity: full ROM; no edema Left lower extremity: full ROM; no edema Psych Mental Status: mental status grossly normal Speech and movement: Normal speech and movement present Affect: normal affect Attitude: cooperative Thought process: Normal thought process present Coding Level of Care Code Est Pt Level 4 (39692) Diagnoses 16 weeks gestation of Z3A.16 MDD (major depressive disorder), recurrent episode, moderate F33.1 Colitis K52.9 Assessment & Plan Assessment & Plan (1) 16 weeks gestation of : Code(s): Z3A.16 - 16 weeks gestation of Category: Medical Plan: The patient is advised to continue regular care, including scheduled ultrasounds and monitoring for gestational diabetes and preeclampsia. She is encouraged to maintain a healthy lifestyle, avoiding alcohol and smoking, and to manage her anxiety with support from family and friends. (2) MDD (major depressive disorder), recurrent episode, moderate: Code(s): F33.1 - Major depressive disorder, recurrent, moderate Category: Medical Plan: Will try to have patient back to evaluate her mental health as she is at high-risk for depression and anxiety. (3) Colitis: Code(s): K52.9 - Noninfective gastroenteritis and colitis, unspecified Category: Medical Plan: Patient continues with the use of famotidine and ondansetron which has been helpful throughout her so far.
[2025-07-03 15:11] VITALS: BP 130/60; PULSE 74; TEMP 36.3; O2SAT 98; BMI 28.2
--- OUTSIDE RECORDS SUMMARY | 2025-07-03 20:33 | XMS_ITS | Encounter Summary ---
Author Organization [facility] Address [address] [place] [address] Care Team Providers Care Improvement Spec Name Role Phone Edilberto Hurd Primary Care Provider Encounter Details Date Type Department Care Team (Latest Contact Info) Description 01/09/2025 Lab Requisition [facility] - Main Lab [address] [place] [address] [facility] An[facility]ell [facility] [employer] Ob-Data Processing Systems Consultant Encounter for screening for infections with a [...] MOLECULAR DIAGNOSTICS METHOD 01/10/2025 2:25 PM EDT [facility] Chlamydia trachomatis PCR Negative Negative LAB MOLECULAR DIAGNOSTICS METHOD 01/10/2025 2:25 PM EDT [facility] Swab Cervix uteri structure / Unknown 01/09/2025 01/09/2025 6:09 PM EDT us [employer] O b-Data Processing Systems Consultant [facility] LAB MICROBIOLOGY - GENERAL ORDERABLES Final Result [facility] [address] [place] [address], documented in this encounter Visit Diagnoses Diagnosis Encounter for screening for infections with a predominantly sexual mode of transmission documented in this encounter Care Teams Improvement Spec Relationship Specialty Start Date End Date Edilberto Hurd PA [address] [place] [id number] PCP - General Physician Blow Molding Machine Tender 01/09/25 documented as of this encounter
--- OUTSIDE RECORDS SUMMARY | 2025-07-03 20:33 | XMS_ITS | Clinical Summary ---
Author Organization [address] Address [address] [place] [address] Phone Care Team Providers Care Workers Compensation Claims Adjuster Name Role Phone Edilberto Hurd Primary Care Provider [phone] Social History Tobacco Use Types Packs/Day Years [...] 5 Years) and At-Risk Patients (6 to 49 Years) (2 of 2 - PCV) 08/29/2020 08/29/2019, 10/29/2016 Social Influencers of Health Screening 09/21/2022 Depression Screening 10/19/2024 COVID-19 Vaccine (3 - season) 2025 03/03/2021, 02/10/2021 Influenza Vaccine (#1) 2025 , 09/02/2023, 08/08/2021, Additional history exists DTaP,Tdap,and Td Vaccines (7 - Td or [...] Completed 05/22/2024, 04/09/2024, 01/22/2023, Additional history exists HIV Screening Completed 01/09/2025 Hepatitis C Screening Completed 04/18/2025, 025 Meningococcal B Vaccine Aged Out No l onger eligible based on patient's age to complete this topic RSV Immunization Patients Under 20 months Aged Out No longer eligible based on patient's age to complete this topic Procedures Procedure Name Priority Date/Time Associated Diagnosis Comments HEPATITIS C ANTIBODY Routine 01/09/2025 12:00 AM EDT STD exposure HIV 1, 2 ANTIBODY, P24 ANTIGEN WITH REFLEX TO DIFFERENTIATION Routine 01/09/2025 12:00 AM EDT STD exposure from Last 3 Months or Most Recently Relevant to Health Maintenance Results * Hepatitis C antibody (01/09/2025 12:00 AM EDT) Hepatitis C Antibody Negative Negative LAB CHEMISTRY METHOD 01/09/2025 5:25 PM EDT [facility] Blood Venous blood specimen / Unknown 01/09/2025 01/09/2025 3:29 PM EDT us Felisha Peck MD LAB BLOOD ORDERABLES Fin al Result [facility] [address] [place] [address], * HIV 1,2 antibody, p24 antigen with reflex to differentiation (01/09/2025 12:00 AM EDT) HIV Combo AB/AG Negative Negative LAB CHEMISTRY METHOD 01/09/2025 5:26 PM EDT [facility] Blood Venous blood specimen / Unknown 01/09/2025 01/09/2025 3:29 PM EDT Narrative [facility] - 01/09/2025 5:26 PM EDT This assay is a 4th generation assay allowing for earlier detection of HIV infection by detecting the presence of the HIV-1 p24 antigen as well as the traditional antibodies to HIV type 1 (including group O) and type 2. Use of a 4th generation assay is the current CDC recommendation for HIV screening. us Felisha Peck MD LAB BLOOD ORDERABLES Fin al Result [facility] [address] [place] [address], from Last 3 Months or Most Recently Relevant to Health Maintenance Insurance [facility] Care Teams Workers Compensation Claims Adjuster Relationship Specialty Start Date End Date Edilberto Hurd PA [address] [place] [address] PCP - General Physician Finisher Hand 01/09/25
== END 2025-07-03 15:41 | disposition home or self-care (01) ==
LOC: HO.HMCH 15:07
PROVIDERS: PCP Physician Assistant; Visit Provider Physician Assistant
DX: Z3A.16 16 weeks gestation of pregnancy (principal); F33.1 Major depressive disorder, recurrent, moderate; K52.9 Noninfective gastroenteritis and colitis, unspecified

== ENCOUNTER → 2025-07-03 15:06 | Outpatient (BNVA) | payer OTHER, SELFPAY | PROVIDERS: PCP Physician Assistant; Visit Provider Physician Assistant | DX: O99.342 Other mental disorders complicating pregnancy, second trimester (principal); O26.892 Other specified pregnancy related conditions, second trimester; I73.00 Raynaud's syndrome without gangrene; F41.9 Anxiety disorder, unspecified; F33.1 Major depressive disorder, recurrent, moderate; K52.9 Noninfective gastroenteritis and colitis, unspecified; Z3A.16 16 weeks gestation of pregnancy | CPT/HCPCS: 99212 ==

== ENCOUNTER 2025-09-11 09:04 | Outpatient (AMB) | payer OTHER, SELFPAY ==
--- OUTSIDE RECORDS SUMMARY | 2025-09-11 09:57 | XMS_ITS | Clinical Summary ---
Author Organization [facility] Address [address] [place] [id number] Phone Care Team Providers Care Audit Senior Associate Name Role Phone Edilberto Hurd Primary Care Provider + Allergies Active Allergy Reactions Criticality Noted Date Comments Amoxicillin 04/17/2025 Ketorolac 04/17/2025 Medications budesonide-formote rol (SYMBICORT) 80-4.5 mcg/actuation inhaler Inhale 2 puffs into the lungs 2 (two) times a day. 03/19/20 24 Active albuterol 90 mcg/actuation inhaler Inhale 2 puffs into the lungs every 6 (six) hours as needed for wheezing. Active famotidine (PEPCID) 40 MG tablet Take 1 tablet (40 mg total) by mouth daily. 30 tablet 04/22/20 25 Active ondansetron (ZOFRAN-ODT) 4 MG disintegrating tablet Take 1 tablet (4 mg total) by mouth every 8 (eight) hours. 90 tablet 04/21/20 25 Active potassium, sodium phosphates (PHOS-NAK) 280-160-250 mg PwPk Take 1 packet by mouth 2 (two) times a day before meals. 60 packet 04/21/20 25 Active vitamins with ferrous fumarate- folic acid 28 mg iron- 800 mcg Tab Take 1 tablet by mouth daily. 30 tablet 04/21/20 25 Active promethazine (PHENERGAN) [address] 1 suppository (25 mg total) rectally every 8 (eight) hours as needed for nausea. 30 suppository 04/21/20 25 Active pyridoxine, vitamin B6, (B-6) 50 MG tablet Take 1 tablet (50 mg total) by mouth daily. 30 tablet 04/22/20 25 Active scopolamine (TRANSDERM-SCOP) 1 mg over [address] 1 patch onto the skin every third day. 10 patch 04/24/20 25 Active Active Problems Problem Noted Date Diagnosed Date Electrolyte abnormality 04/18/2025 Assessment & Plan (04/20/2025 3:27 PM EDT): Persistently low potassium, phosphorus improved. Will replete potassium again today, start with IV and if tolerated oral administration as well, hopefully she will be able to eat solids. Has been sipping on clear Ensure although the sweet taste has been making her nauseous Will order 2 doses of IV KCl to equal 20 mEq and a dose of oral potassium extended release this afternoon if she is able to tolerate, Neutra-Phos if nausea has improved, otherwise another IV phosphorus dose Assessment & Plan (04/19/2025 11:11 AM EDT): Phosphorus and potassium low today, replete IV Assessment & Plan (04/18/2025 12:49 PM EDT): Phosphorus low, will replete Nausea and vomiting in 04/17/2025 Assessment & Plan (04/20/2025 3:27 PM EDT): History of cannabis hyperemesis syndrome Patient had a good morning yesterday and then began vomiting again still quite nauseous. Patient states in the past she was hospitalized for a week Not having any abdominal pain, states she has had some cramping at times when she is vomiting was not able to eat much yesterday but was able to take some clear liquids Acidosis has resolved Benadryl has been helping, patient could not retain the Compazine suppository. SOCIAL SCIENCES PROFESSOR physician recommended Compazine suppositories or Phenergan IV I will change to IV Phenergan now given her inability to tolerate the Compazine Patient was bradycardic yesterday in the 50s, sinus bradycardia QTc [address] consult appreciated Last dose of Benadryl was midnight, she received 1 dose of Phenergan today Family notes a history of celiac. They are not sure if she has ever been tested. Patient denies any diarrhea presently or any rectal bleeding. Assessment & Plan (04/19/2025 11:11 AM EDT): With possible cannabis hyperemesis syndrome Given Compazine and Benadryl yesterday Feeling much improved today, sipping on some clear liquids. Hopeful that she may be able to go home later tonight or tomorrow morning. Ideally I would like her to take some solids before she goes Assessment & Plan (04/18/2025 12:49 PM EDT): Onset approximately 2 days COAL WASHER when patient stopped smoking marijuana, patient stated she was smoking excessive amounts daily, now stopping because she is . Has had prior hyperemesis cannabinoid syndrome in the past. Showering has helped. Evidence of ketosis with positive ketones in urinalysis as well as reduced bicarb on basic metabolic panel which is persistent and slightly worse overnight, no anion gap No abdominal pain, bleeding, fever, leukocytosis. Plan: Dr Mays discussed the case with SOCIAL SCIENCES PROFESSOR, did recommend maintenance fluids with D5 half NS given possible starvation ketosis as well as hyperemesis cannabinoid syndrome Pharmacist recommended stopping Zofran and first trimester although RISK TECH physician felt this would be okay Pharmacist recommended stepwise approach starting with diphenhydramine , pharmacist raised the option of metoclopramide but I will defer to the SOCIAL SCIENCES PROFESSOR physician who noted Compazine suppository every 12 hours could be used, will also continue scopolamine patch as per SOCIAL SCIENCES PROFESSOR physician, famotidine and vitamin B6 Continue supportive care Diet as tolerated Bilirubin was 1.7 yesterday now within normal limits Drop in hemoglobin overnight may be dilutional, no bleeding symptoms but will monitor closely Patient is still quite nauseous Assessment & Plan (04/17/2025 8:35 PM EDT): - recommend D51/2 NS - famotidine 40 mg IV - zofran 4 mg Q2kmlvf or 8 mg q8hrs - compazine suppository q12hrs can also be used in addition or phenergan IV - scopolamine patch - Vitamin B6 50 mg daily - recommend clears for now - transition to regular once tolerated PO liquids and transition IV antiemetics to PO prior to discharge Assessment & Plan (04/17/2025 8:10 PM EDT): - Onset approximately 2 days ago when patient stopped smoking marijuana, patient has been smoking excessive amounts daily. -Chose to discontinue marijuana use 3 days prior when she found out she was . -Has had prior hyperemesis cannabinoid syndrome in the past. -Evidence of ketosis with positive ketones in urinalysis as well as reduced bicarb on basic metabolic panel Plan: Discussed the case with SOCIAL SCIENCES PROFESSOR, did recommend maintenance fluids with D5 half NS given possible starvation ketosis as well as hyperemesis cannabinoid syndrome Continue Zofran every 6 hours p.o. 4 mg Can consider rectal Phenergan every 12 hours Continue supportive care Clear liquid diet Recheck LFTs in the a.m. Gastroesophageal reflux disease without esophagi tis 04/17/2025 Assessment & Plan (04/20/2025 9:33 AM EDT): RISK TECH recommended change to famotidine from ppi Assessment & Plan (04/19/2025 11:11 AM EDT): RISK TECH recommended change to famotidine, this was done yesterday Assessment & Plan (04/18/2025 12:49 PM EDT): - Continue Protonix 40 mg daily, can consider changing in dose per discussion with RISK TECH. Assessment & Plan (04/17/2025 8:10 PM EDT): - Continue Protonix 40 mg daily, can consider changing in dose per discussion with RISK TECH. Early stage of 04/17/2025 Assessment & Plan (04/20/2025 3:27 PM EDT): Qualitative hCG positive 8241 Patient is , first , LMP 03/10/2025 Some vaginal discharge per patient, patient did elect to have STD testing, she states she is frequently infected with BV, BV testing is still pending SOCIAL SCIENCES PROFESSOR consult appreciated Early in stay thought she had some spotting in the shower this has not persisted HCV negative, hepatitis B surface antigen nonreactive, surface antibody positive, hepatitis A total antibody reactive, IgM was nonreactive. HIV negative. GC negative. Patient aware BV pending Assessment & Plan (04/19/2025 11:11 AM EDT): Qualitative hCG positive Patient is , first , had not yet received care, LMP 03/10/2025 Some vaginal discharge per patient, patient did elect to have STD testing, she states she is frequently infected with BV SOCIAL SCIENCES PROFESSOR consult appreciated Patient noted some spotting apparently last night, none further. Beta hCG was 8241 HCV negative, hepatitis B surface antigen nonreactive, surface antibody positive, hepatitis A total antibody reactive, IgM was nonreactive. HIV negative. GC negative Vaginitis panel pending RISK TECH notes need for outpatient ultrasound Patient is aware of these results Assessment & Plan (04/18/2025 12:49 PM EDT): Qualitative hCG positive Patient is , first , has not received care, LMP 03/10/2025 Has some vaginal discharge per patient, patient did elect to have STD testing, she states she is frequently infected with BV Plan: SOCIAL SCIENCES PROFESSOR consult appreciated Pending vaginitis panel, chlamydia, gonorrhea, trichomoniasis testing Pending hepatitis panel HIV nonreactive vitamin Quantitative hCG 8241 Continue vitamin B6 Assessment & Plan (04/17/2025 8:35 PM EDT): - plans to follow with OBGYN affiliated with [facility] - given no pain or bleeding, ultrasound can be done as outpatient once 6+ weeks Assessment & Plan (04/18/2025 12:15 AM EDT): - Qualitative hCG positive on presentation, quantitative hCG currently pending -Patient is , first , has not received care, LMP 03/10/2025, 5 weeks . -Has some vaginal discharge per patient, patient did elect to have STD testing, she states she is frequently infected with BV Plan: SOCIAL SCIENCES PROFESSOR consulted excruciating Check vaginitis panel, chlamydia, gonorrhea, trichomoniasis testing Check hepatitis panel Check HIV Initiate vitamins Quantitative hCG currently pending Asthma 03/19/2023 Assessment & Plan (04/20/2025 9:33 AM EDT): No signs or symptoms of exacerbation Assessment & Plan (04/19/2025 11:11 AM EDT): Denies symptoms of exacerbation or wheezing Assessment & Plan (04/18/2025 12:49 PM EDT): No wheezing on exam, patient stated she was breathing more heavily than usual prior to arrival Suspect this secondary to hyperemesis Plan: Continue home albuterol, Advair discus Assessment & Plan (04/17/2025 8:10 PM EDT): - No wheezing on exam, patient does states she is breathing more heavily than usual -Suspect this secondary to hyperemesis Plan: Continue home albuterol, Advair discus Comments Yes Immunizations Immunization Administration Dates Next Due Hepatitis B Adult 04/01/1996,1995,09/01/19 95 INFLUENZA, SPLIT VIRUS, TRIVALENT PF 08/16/2024 MMR 09/12/2013,12/04/1999,09/23/1996 Tdap 10/29/2016 Varicella 09/12/2013 Social History Tobacco Use Types Packs/Day Years Used Date Smoking Tobacco: Never Assessed Education Answer Date Recorded Are you interested in more education? Not on kobe e 06/14/2024 Are you concerned about learning? Not on file 06/14/2024 No 06/14/2024 No 06/14/2024 Food Answer Date Recorded Within the past 6 months we worried whether our food would run out before we got money to buy more. Never True 04/17/2025 Within the past 6 months the food we bought just didn't last and we didn't have enough money to get more. Never True Residential Stability Answer Date Recor ded What is your housing situation today? I have andrey sing 04/17/2025 How many times have you move d in the past 12 months? Zero (I did not move) 04/17/2025 Paying for Meds Answer Date Recorded Do you have trouble paying for medicines? No 04/17/2025 Paying Utility Bills Answer Date Record ed Do you have trouble paying your heating or elect ricity bill? No 04/17/2025 Transportation Answer Date Recorded Has the lack of transportati on kept you from medical appointments or from getting medications? No 04/17/2025 Digital Access Answer Date Recorded No 04/17/2025 Yes 04/17/2025 Do you have reliable internet access at home? Ye s 04/17/2025 Do you have a device (e.g., phone, tablet, computer) with a working camera? Yes 04/17/2025 Intimate Partner Violence Answer Date R ecorded Are you denied basic needs s uch as food, clothing, or medical care? No 04/17/2025 In the past 12 months have y ou been in a relationship with a person who hurts, threatens, or tries to control you? No 04/17/2025 Are you denied basic needs s uch as food, clothing, or medical care? No 04/17/2025 In the past 12 months have y ou been in a relationship with a person who hurts, threatens, or tries to control you? No 04/17/2025 Comments Yes Sex and Gender Information Value Date Recorded Sex Assigned at Not on file Legal Sex Female 4:48 PM EDT Gender Identity Not on file Sexual Orientation Not on file Last Filed Vital Signs Vital Sign Reading Time Taken Comments Blood Pressure 116/76 04/21/2025 7:45 AM EDT Pulse 58 04/21/2025 7:45 AM EDT Temperature 36.7 C (98.1 F) 04/21/2025 7:45 AM EDT Respiratory Rate 18 04/21/2025 7:45 AM EDT Oxygen Saturation 97% 04/21/2025 7:45 AM EDT Inhaled Oxygen Concentration - - Weight 76.6 kg (168 lb 12.8 oz) 04/20/2025 6:12 AM EDT Height 162.6 cm (5' 4.02 ) 04/18/2025 5:39 AM ED T Body Mass Index 28.96 04/18/2025 5:39 AM EDT Plan of Treatment Health Maintenance Due Date Last Done Comments DEPRESSION SCREENING 2007 SMOKING Hx and SMOKELESS TOBACCO SCREENING 2008 PNEUMOCOCCAL VACCINES (0-49 years) (1 of 2 - PCV) 2014 PAP SMEAR 2016 INFLUENZA VACCINE (#1) 2025 08/16/2024 COVID-19 VACCINE (1 - 2024-2 6 season) 2025 Adult Td,Tdap Booster 10/29/2026 10/29/2016 RSV VACCINE (1 - 1-dose 75+ series) 2070 HEPATITIS C SCREENING Completed 04/18/2025 , 04/18/2025, 04/18/2025 HIV ONE-TIME SCREENING (18-6 5 YEARS) Completed 04/18/2025 HIB VACCINES Aged Out No longer eligi ble based on patient's age to complete this topic MENINGOCOCCAL VACCINES (ACWY) Aged Out No longer eligible based on patient's age to complete this topic MENINGOCOCCAL VACCINES (B) Aged Out N o longer eligible based on patient's age to complete this topic Medical Devices Not on file Procedures Procedure Name Priority Date/Time Associated Diagnosis Comments HEPATITIS C ANTIBODY, QUALITATIVE Routine 04/18/2025 5:28 AM EDT from Last 3 Months or Most Recently Relevant to Health Maintenance Results * Hepatitis C antibody, qualitative (04/18/2025 5:28 AM EDT) HCV NON-REACTIV E NON-REACTI VE [facility] Blood 04/18/2025 5:28 AM EDT 04/18/2025 5:44 AM EDT Alfonso Mays DO LAB BLOOD BKR ORDERABLES Final Result [address] [id number] from Last 3 Months or Most Recently Relevant to Health [place] [id number] [place] [address] [place] [address] [place] [address] [place] [facility] Advance Directives For more information, please contact: [phone] (9AM - 5PM [facility], Thursday-Thursday) Documents on File Type Date Recorded Patient Inspector Experimental Assembly Expl anation Healthcare Proxy 04/26/2025 2:47 PM * Full Code (Latest Code Status on File) Date Activated Date Inactivated Comments 04/17/2025 7:36 PM Question Answer Comments Code Status Confirmed With: Patient Code Status Communicated To: Inpatient Attending Care Teams Audit Senior Associate Relationship Specialty Start Date End Date Edilberto Hurd PA [address] [place] [address] PCP - General Physician Vault Installer 04/18/25 Additional Source Comments The information contained in this document represents components of the legal health record. It is not the complete legal health record.[facility]
--- OUTSIDE RECORDS SUMMARY | 2025-09-11 09:57 | XMS_ITS | Clinical Summary ---
Author Organization [address] Address [address] [place] [address] Phone Care Team Providers Care Outside Physical Damage Appraiser Name Role Phone Edilberto Hurd Primary Care Provider Social History Tobacco Use Types Packs/Day Years [...] and At-Risk Patients (6 to 49 Years) (3 of 3 - PCV) 08/29/2020 08/29/2019, 10/29/2016 Social Influencers of Health Screening 09/21/2022 Depression Screening 10/19/2024 COVID-19 Vaccine (3 - season) 2025 03/03/2021, 02/10/2021 DTaP,Tdap,and Td Vaccines (7 - Td or Tdap) 01/06/2032 01/05/2022, 10/29/2016, 10/03/2000, Additional history exists RSV Immunization Adult Patients (1 - 1-dose 75+ series) 2070 HIB Vaccines Completed 09/23/1996, 03/19, 01/18/1996, Additional [...] 01/09/2025 Hepatitis C Screening Completed 04/18/2025, 025 Influenza Vaccine Completed 08/25/2025, , 09/02/2023, Additional history exists Meningococcal B Vaccine Aged Out No l [...] Hepatitis C antibody (01/09/2025 12:00 AM EDT) [facility] Hepatitis C Antibody Negative Negative LAB CHEMISTRY METHOD 01/09/2025 5:25 PM EDT [facility] Blood Venous blood specimen / Unknown 01/09/2025 01/09/2025 3:29 PM EDT us Felisha Peck MD LAB BLOOD ORDERABLES Fin al Result [facility] [address] [place] [address], [place] [phone] * HIV 1,2 antibody, p24 antigen with reflex to differentiation (01/09/2025 12:00 AM EDT) HIV Combo AB/AG Negative Negative LAB CHEMISTRY METHOD 01/09/2025 5:26 PM EDT [facility] Blood Venous blood specimen / Unknown 01/09/2025 01/09/2025 3:29 PM EDT Narrative [facility] - 01/09/2025 5:26 PM EDT [...] MD LAB BLOOD ORDERABLES Fin al Result [facility] [address] [place] [address], from Last 3 Months or Most Recently Relevant to Health Maintenance Insurance [facility] Care Teams Outside Physical Damage Appraiser Relationship Specialty Start Date End Date Edilberto Hurd PA [address] [place] [id number] PCP - General Physician Arcade Technician 01/09/25
--- NOTE | 2025-09-11 10:02 | A.OFFVIS_ITS ---
Intake Visit Reasons: Kidney stones mild hydro-pt Intake Note: New patient presents today for initial visit for kidney stones mild hydro-pt Urology Medication:None Blood Thinner:None Antibiotic Allergies:Amoxicillin Allergies amoxicillin Allergy (Unknown, Verified 09/11/25 10:02) Rash amitriptyline Adverse Reaction (Intermediate, Verified 09/11/25 10:02) Fatigued trazodone Adverse Reaction (Intermediate, Verified 09/11/25 10:02) Anxiety HPI Comments Details: 09/11/25-- History of Present Illness The patient is a 30-year-old individual presenting with nephrolithiasis and associated hydronephrosis during . The patient reported that the kidney stones were identified during an ultrasound, which showed stones in the left kidney and mild swelling, indicating hydronephrosis. The patient is currently six months , with a due date of December 15. The patient experienced pain that has since improved, and reported spotting approximately two weeks ago, which was not severe. Following the spotting, the patient noted an increase in urination, suggesting a possible passage of a stone. The patient had the ultrasound performed in [place] while away for a birthday celebration, which resulted in a hospital visit. The patient has a history of passing kidney stones but has not undergone any procedures for them. Results - Ultrasound: Stones in the left kidney with mild hydronephrosis Plan 1. Nephrolithiasis - Monitor symptoms and encourage increased fluid intake to facilitate stone passage. - Avoid radiation-based imaging during ; use ultrasound for monitoring. - Consider temporary stent placement if severe obstruction or pain occurs. - Plan for a follow-up renal ultrasound post-delivery in January. 2. Hydronephrosis - Monitor for worsening symptoms or increased swelling. - Encourage hydration to reduce risk of further obstruction. - Follow up post-delivery to reassess kidney status. 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- [employer] Cognitive needs: No Hearing needs: No Vision needs: No Review of Systems Const All systems reviewed & are unremarkable except as noted in HPI and below Reports no additional complaints Eyes Reports no additional complaints ENT Reports no additional complaints Card Reports no additional complaints Resp Reports no additional complaints GI Reports no additional complaints Reports as per HPI Musc Reports no additional complaints Skin/Breast Reports system reviewed and no additional complaints, except as documented Neuro Reports no additional complaints Psych Reports no additional complaints Endo Reports no additional complaints Roger/Lymph Reports no additional complaints Aller/Immun Reports no additional complaints Physical Exam Const General: cooperative, healthy appearing and no acute distress Orientation/consciousness: patient oriented x3 HEENT Head: Yes normal to inspection, Yes normocephalic and Yes atraumatic Eyes Conjunctivae: conjunctivae normal Neck Neck: Yes normal visual inspection and Yes trachea midline Chest Chest palpation & inspection: normal inspection of the chest Resp Effort & Inspection: normal respiratory effort GI Inspection: Yes normal to inspection Neuro General: patient oriented x3 Psych Appearance: grossly normal Results AMB Urinalysis, Automated UA Leukoctes 0 Erin/uL Last Edit by Margy Evans on 09/11/25 14:18 UA Nitrite Negative Last Edit by Margy Evans on 09/11/25 14:18 UA Urobilinogen 0.2 mg/dL Last Edit by Margy Evans on 09/11/25 14:18 UA Protein 15 mg/dL Last Edit by Margy Evans on 09/11/25 14:18 UA pH 6.5 Last Edit by Margy Evans on 09/11/25 14:18 UA Blood 0 Gideon/uL Last Edit by Margy Evans on 09/11/25 14:18 UA Specific [place] 1.015 Last Edit by Margy Evans on 09/11/25 14:18 UA Ketone Negative Last Edit by Margy Evans on 09/11/25 14:18 UA Bilirubin 0 mg/dL Last Edit by Margy Evans on 09/11/25 14:18 UA Glucose 0 mg/dL Last Edit by Margy Evans on 09/11/25 14:18 Assessment & Plan Assessment & Plan Orders: Orders AMB Urinalysis Automated Today Z13.9 - Encounter for screening, unspecified Coding
== END 2025-09-11 10:24 | disposition home or self-care (01) ==
LOC: HO.HUSH 09:05
PROVIDERS: PCP Physician Assistant; Visit Provider Urology
DX: Z13.9 Encounter for screening, unspecified (principal)

== ENCOUNTER → 2025-09-11 09:04 | Outpatient (BNVA) | payer OTHER, SELFPAY | PROVIDERS: PCP Physician Assistant; Visit Provider Urology | DX: Z13.9 Encounter for screening, unspecified (principal) | CPT/HCPCS: 81003 ==